=== PATIENT | female | born 1975 | race Caucasian/White ===

== ENCOUNTER 2018-02-03 14:05 | Inpatient (IN) | payer BC ==
[2018-02-03] MEDS ORDERED: KETOROLAC TROMETHAMINE INJ/PF 30 MG/1 ML SDV IV ONE (15:22)
--- NOTE | 2018-02-03 15:27 | ER Document Report ---
ED Medical Screen (RME) - General Chief Complaint: Breathing Difficulty Stated Complaint: DIFFICULTY BREATHING/PAIN BETWEEN SHOULDERS Time Seen by Provider: 02/03/18 15:07 Mode of Arrival: Ambulatory Information source: Patient Notes: Patient is a 42-year-old female who presents with multiple complaints today. Patient reports this morning she woke up with difficulty breathing and felt very lightheaded with any movement. She reports the difficulty breathing is worse with ambulation. Patient also reports sharp pain in between her shoulder blades. She states the pain feels better with pressure. She states that she did try taking an albuterol inhaler with no relief. She states she has been constantly tired lately and has had a history of severe anemia. Patient reports past medical history of DVT, pneumonia, asthma, sleep apnea and gastric bypass. Patient denies any use of oral contraceptives, hormone replacement, reports she drives 3 hours round trip each day to work, denies any recent surgery and denies smoking. Exam: Lung sounds are clear to auscultation bilaterally Heart sounds S1-S2 present with no ectopy noted Patient alert, oriented and speaking in full sentences I have greeted and performed a rapid initial assessment of this patient. A comprehensive ED assessment and evaluation of the patient, analysis of test results and completion of the medical decision making process will be conducted by additional ED providers. Dictation of this chart was performed using voice recognition software; therefore, there may be some unintended grammatical errors. TRAVEL OUTSIDE OF THE [place] IN LAST 30 DAYS: No - Related Data Allergies/Adverse Reactions: No Known Allergies Allergy (Unverified 02/03/18 14:06) Past Medical History - Social History Chew tobacco use (# tins/day): No Pulmonary Medical History: Reports: Hx Asthma Renal/ Medical History: Denies: Hx Peritoneal Dialysis Past Surgical History: Reports: Hx Bowel Surgery - gastirc bypass Physical Exam - Vital signs Vitals: Temp Pulse Resp BP Pulse Ox 100.0 F 98 33 H 128/61 H 98 02/03/18 14:21 02/03/18 14:21 02/03/18 14:21 02/03/18 14:21 02/03/18 14:21 Course - Vital Signs Vital signs: Temp Pulse Resp BP Pulse Ox 100.0 F 98 33 H 128/61 H 98 02/03/18 14:21 02/03/18 14:21 02/03/18 14:21 02/03/18 14:21 02/03/18 14:21 Doctor's Discharge - Discharge Referrals: TREY CARRILLO MD [Primary Care Provider] - Follow up as needed
--- NOTE | 2018-02-03 15:46 | RADIOLOGY REPORT (SQ) ---
EXAM DESCRIPTION: CHEST 2 VIEWS COMPLETED DATE/TIME: 02/03/2018 3:34 pm REASON FOR STUDY: sob with exertion COMPARISON: None. EXAM PARAMETERS: NUMBER OF VIEWS: two views TECHNIQUE: Digital Frontal and Lateral radiographic views of the chest acquired. RADIATION DOSE: NA LIMITATIONS: none FINDINGS: LUNGS AND PLEURA: Bilateral lower lobe patchy airspace disease, may be on the basis of in filtrates versus edema. Blunting of the costophrenic angles suggest small bilateral pleural effusion s. No pneumothorax. MEDIASTINUM AND HILAR STRUCTURES: No masses or contour abnormalities. HEART AND VASCULAR STRUCTURES: Borderline cardiomegaly. Slight prominence of the pulmonary vasculat ure or, may represent pulmonary congestion. BONES: No acute findings. HARDWARE: None in the chest. OTHER: No other significant finding. IMPRESSION: 1. Bilateral patchy lower lobe airspace disease, may be on the basis of infiltrates esme chao edema. Small bilateral pleural effusions. 2. Borderline cardiomegaly and slight to mild pulmonary vascular congestion. TECHNICAL DOCUMENTATION: JOB ID: [id number] [employer]- All Rights Reserved Reading location - IP/workstation name: [email or web address]
[2018-02-03 16:16] LABS: HEMATOCRIT 43.4 % (36.0-47.0); HEMOGLOBIN 14.4 g/dL (12.0-15.5); MEAN CORPUSCULAR HEMOGLOBIN 28.6 pg (27.0-33.4); MEAN CORPUSCULAR HGB CONC 33.1 g/dL (32.0-36.0); MEAN CORPUSCULAR VOLUME 86 fl (80-97); PLATELET COUNT 441 10^3/uL (150-450); RED BLOOD COUNT 5.03 10^6/uL (3.72-5.28); RED CELL DISTRIBUTION WIDTH 14.4 % (11.5-14.0)
[2018-02-03 16:29] LABS: ABSOLUTE LYMPHOCYTES# (MANUAL) 2.4 10^3/uL (0.5-4.7); ABSOLUTE NEUTROPHILS# (MANUAL) 30.2 10^3/uL (1.7-8.2); BASOPHILS % (MANUAL) 0 % (0-2); EOSINOPHILS % (MANUAL) 0 % (0-6); LYMPHOCYTES % (MANUAL) 7 % (13-45); MONOCYTES % (MANUAL) 3 % (3-13); SEGMENTED NEUTROPHILS % (MAN) 90 % (42-78); TOTAL CELLS COUNTED 100
[2018-02-03 16:30] LABS: PLATELET COMMENT ADEQUATE; TOXIC GRANULATION 1+; TOXIC VACUOLATION PRESENT
[2018-02-03 16:54] LABS: ALANINE AMINOTRANSFERASE 23 U/L (9-52); ALBUMIN 3.2 g/dL (3.5-5.0); ALKALINE PHOSPHATASE 90 U/L (38-126); ANION GAP 7 (5-19); ASPARTATE AMINO TRANSFERASE 21 U/L (14-36); BILIRUBIN,DIRECT 0.4 mg/dL (0.0-0.4); BILIRUBIN,TOTAL 0.7 mg/dL (0.2-1.3); BLOOD UREA NITROGEN 10 mg/dL (7-20); CALCIUM 8.6 mg/dL (8.4-10.2); CARBON DIOXIDE 22 mmol/L (22-30); CHLORIDE 110 mmol/L (98-107); GLUCOSE 128 mg/dL (75-110); POTASSIUM 4.3 mmol/L (3.6-5.0); SODIUM 138.6 mmol/L (137-145); TOTAL PROTEIN 5.9 g/dL (6.3-8.2)
--- NOTE | 2018-02-03 17:09 | ER Document Report ---
ED General - General Chief Complaint: Breathing Difficulty Stated Complaint: DIFFICULTY BREATHING/PAIN BETWEEN SHOULDERS Time Seen by Provider: 02/03/18 15:07 Mode of Arrival: Ambulatory TRAVEL OUTSIDE OF THE [place] IN LAST 30 DAYS: No - HPI Notes: Patient is a 42-year-old female with a history of asthma, previous pneumonia, venous issues to the lower extremities who presents to the ED complaining of pain between her shoulder blades, dyspnea on exertion, dry nonproductive cough that began over the last day. Patient does report feeling hot and cold at times as well. Patient states that she has been eating and drinking without any difficulties. She is urinating normally and having normal bowel movements. Denies any drug allergies or smoking history. Denies any prolonged immobilization, distance travel aside from 3-hour travel time for work round- trip, recent surgery/trauma, personal cancer history, hormone use, smoking, or previous PE. Denies any headache, neck pain, URI, sore throat, chest pain, palpitations, syncope, wheeze, abdominal pain, nausea/vomiting/diarrhea, urinary retention, dysuria, hematuria, loss of control of bowel or bladder, numbness/tingling, saddle anesthesia, muscle paralysis/weakness, or rash. - Related Data Allergies/Adverse Reactions: No Known Allergies Allergy (Unverified 02/03/18 14:06) Past Medical History - General Information source: Patient - Social History Smoking Status: Never Smoker Chew tobacco use (# tins/day): No Family History: Reviewed & Not Pertinent Patient has suicidal ideation: No Patient has homicidal ideation: No Pulmonary Medical History: Reports: Hx Asthma Renal/ Medical History: Denies: Hx Peritoneal Dialysis Past Surgical History: Reports: Hx Bowel Surgery - gastirc bypass Review of Systems - Review of Systems -: Yes All other systems reviewed and negative Physical Exam - Vital signs Vitals: Temp Pulse Resp BP Pulse Ox 100.0 F 98 33 H 128/61 H 98 02/03/18 14:21 02/03/18 14:21 02/03/18 14:21 02/03/18 14:21 02/03/18 14:21 - Notes Notes: PHYSICAL EXAMINATION: GENERAL: Well-appearing, well-nourished and in no acute distress. A&Ox4. Answers questions appropriately. HEAD: Atraumatic, normocephalic. EYES: Pupils equal round and reactive to light, extraocular movements intact, sclera anicteric, conjunctiva are normal. ENT: Nares patent and without discharge. oropharynx clear without exudates. No tonsilar hypertrophy or erythema. Moist mucous membranes. NECK: Normal range of motion, supple without lymphadenopathy LUNGS: bibasilar crackles noted. No wheezing or retractions. HEART: Regular rate and rhythm without murmurs, rubs, gallops. ABDOMEN: Soft, nontender, nondistended abdomen. No guarding, no rebound. No masses appreciated. Normal bowel sounds present. No CVA tenderness bilaterally. Musculoskeletal: FROM to passive/active. Strength 5+/5. Robert neg. No asymmetry to LE's. Extremities: Trace pitting edema b/l LE's. Peripheral pulses 2+. Capillary refill less than 3 seconds. NEUROLOGICAL: Normal speech, normal gait. PSYCH: Normal mood, normal affect. SKIN: Warm, Dry, normal turgor, no rashes or lesions noted. Course - Re-evaluation Re-evalutation: 02/03/18 17:40 I have consulted this case with Dr. Quinones. Pt meets SIRS criteria for Sepsis. We suspect b/l pneumonia based on a low grade temp, cough, elevated wbc, and CXR. Pt does not have any tachycardia or hypoxia. Pt does have mild tachypnea in the 20's, but is w/o distress. We will obtain further labs for sepsis, start fluids, and give IV antibiotics. Influenza test pending. 02/03/18 19:08 Lactic, BNP, Trop, and influenza unremarkable. Pt was ambulated with monitor and desaturated to 86% on RA, became tachypneic, SOB, and tachycardic. Wheel chair was brought and pt wheeled back to her room. Her Oxygen came back up to >94% after stopping for 10 seconds and pt started feeling better again. We will call for admission to the hospital for bilateral pneumonia and UTI. 02/03/18 19:19 Dr. Joshua accepted pt for admit to tele obs. - Vital Signs Vital signs: Temp Pulse Resp BP Pulse Ox 100.0 F 98 35 H 129/74 H 98 02/03/18 14:21 02/03/18 14:21 02/03/18 18:01 02/03/18 18:01 02/03/18 18:01 - Laboratory Result Diagrams: 02/03/18 15:54 02/03/18 16:30 Laboratory results interpreted by me: 02/03/18 02/03/18 02/03/18 15:54 15:54 16:30 WBC 33.6 H* RDW 14.4 H Seg Neuts % (Manual) 90 H Lymphocytes % (Manual) 7 L Abs Neuts (Manual) 30.2 H Chloride 110 H Glucose 128 H NT-Pro-B Natriuret Pep 370 H Total Protein 5.9 L Albumin 3.2 L Urine Blood Urine Nitrite Urine Urobilinogen Ur Leukocyte Esterase 02/03/18 18:28 WBC RDW Seg Neuts % (Manual) Lymphocytes % (Manual) Abs Neuts (Manual) Chloride Glucose NT-Pro-B Natriuret Pep Total Protein Albumin Urine Blood SMALL H Urine Nitrite POSITIVE H Urine Urobilinogen 4.0 H Ur Leukocyte Esterase TRACE H Discharge - Discharge Clinical Impression: SIRS (systemic inflammatory response syndrome), Acute UTI (urinary tract infection) Pneumonia of both lower lobes Qualifiers: Pneumonia type: due to unspecified organism Qualified Code(s): J18.1 - Lobar pneumonia, unspecified organism Condition: Stable Disposition: ADMITTED OBSERVATION Admitting Provider: Hospitalist - Dr. Joshua Unit Admitted: Telemetry Referrals: TREY CARRILLO MD [NO LOCAL MD] - Follow up as needed
[2018-02-03] MEDS ORDERED: NORMAL SALINE 1000 ML 1,000 ML IV ONE (17:22)
[2018-02-03] MEDS ORDERED: AZITHROMYCIN INJ 500 MG VIAL IV ONE (17:24)
[2018-02-03 17:57] LABS: VENOUS BLOOD HCO3 21.7 mmol/L (20-32); VENOUS BLOOD PCO2 37.6 mmHg (35-63); VENOUS BLOOD PH 7.38 (7.30-7.42)
[2018-02-03] MEDS ORDERED: CEFTRIAXONE 1 GM/D5W RTU 1 GM/50 ML RTUPB IV ONE (18:00)
[2018-02-03 18:42] LABS: APPEARANCE,URINE CLOUDY; BILIRUBIN,URINE NEGATIVE (NEGATIVE); COLOR,URINE AMBER; GLUCOSE, URINE NEGATIVE (NEGATIVE); KETONES,URINE NEGATIVE (NEGATIVE); LEUKOCYTE ESTERASE,URINE TRACE (NEGATIVE); NITRITE,URINE POSITIVE (NEGATIVE); PROTEIN,URINE NEGATIVE (NEGATIVE); URINE SPECIFIC GRAVITY 1.018
[2018-02-03 18:59] LABS: A TYPE INFLUENZA AG NEGATIVE (NEGATIVE); B INFLUENZA AG NEGATIVE (NEGATIVE)
[2018-02-03] MEDS ORDERED: HYDROCODONE BIT/HOMATROPINE SYRUP 5 ML UDCUP PO PRN (19:23)
[2018-02-03] MEDS ORDERED: CHLORPHENIRAMINE MALEATE 4 MG TABLET PO ONE (19:23)
[2018-02-03] MEDS ORDERED: IPRATROPIUM/ALBUTEROL 0.5-2.5 MG/3 ML AMPUL NEB PRN (19:24)
[2018-02-03] MEDS ORDERED: ACETAMINOPHEN 325 MG TABLET PO PRN (19:24)
[2018-02-03] MEDS: PREDNISONE 20 MG TABLET PO SCH (19:48)
[2018-02-03] MEDS: IPRATROPIUM/ALBUTEROL 0.5-2.5 MG/3 ML AMPUL NEB SCH (21:39)
[2018-02-03] MEDS: HEPARIN SOD (PORCINE) 5,000 UNIT/ML 1 ML SYRINGE SUBCUT SCH (22:25)
[2018-02-03] MEDS: FLUTICASONE NASAL SPRAY 50 MCG/SPRY 120 SPRAY/16 GM NASL SCH (22:26)
--- NOTE | 2018-02-03 23:22 | EKG REPORT ---
SEVERITY:- NORMAL ECG - SINUS RHYTHM : Confirmed by: Theresa Merritt 03-Feb-2018 23:21:33
[2018-02-04 00:37] LABS: CREATINE KINASE MB < 0.22 ng/mL (<4.55); TROPONIN I < 0.012 ng/mL
[2018-02-04] MEDS: IPRATROPIUM/ALBUTEROL 0.5-2.5 MG/3 ML AMPUL NEB SCH ×4 (02:34→19:29)
[2018-02-04] MEDS: HEPARIN SOD (PORCINE) 5,000 UNIT/ML 1 ML SYRINGE SUBCUT SCH ×3 (05:38→22:23)
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
[2018-02-04 06:56] LABS: HEMATOCRIT 36.8 % (36.0-47.0); MEAN CORPUSCULAR HEMOGLOBIN 28.6 pg (27.0-33.4); MEAN CORPUSCULAR HGB CONC 33.3 g/dL (32.0-36.0); MEAN CORPUSCULAR VOLUME 86 fl (80-97); PLATELET COUNT 407 10^3/uL (150-450); RED BLOOD COUNT 4.29 10^6/uL (3.72-5.28); RED CELL DISTRIBUTION WIDTH 14.1 % (11.5-14.0)
[2018-02-04 07:12] LABS: ANION GAP 5 (5-19); BLOOD UREA NITROGEN 11 mg/dL (7-20); CALCIUM 8.5 mg/dL (8.4-10.2); CARBON DIOXIDE 22 mmol/L (22-30); CHLORIDE 114 mmol/L (98-107); GLUCOSE 126 mg/dL (75-110); SODIUM 141.2 mmol/L (137-145)
[2018-02-04 07:14] LABS: CREATINE KINASE < 20 U/L (30-135)
[2018-02-04 07:24] LABS: CREATINE KINASE MB 0.29 ng/mL (<4.55)
[2018-02-04 07:27] LABS: TROPONIN I < 0.012 ng/mL
[2018-02-04 07:36] LABS: WHITE BLOOD COUNT 17.3 10^3/uL (4.0-10.5)
[2018-02-04 07:37] LABS: HEMOGLOBIN 12.3 g/dL (12.0-15.5)
[2018-02-04 07:48] LABS: ABSOLUTE LYMPHOCYTES# (MANUAL) 0.5 10^3/uL (0.5-4.7); ABSOLUTE MONOCYTES # (MANUAL) 0.2 10^3/uL (0.1-1.4); ABSOLUTE NEUTROPHILS# (MANUAL) 16.6 10^3/uL (1.7-8.2); ANISOCYTOSIS SLIGHT; BASOPHILS % (MANUAL) 0 % (0-2); EOSINOPHILS % (MANUAL) 0 % (0-6); LYMPHOCYTES % (MANUAL) 3 % (13-45); MONOCYTES % (MANUAL) 1 % (3-13); SEGMENTED NEUTROPHILS % (MAN) 96 % (42-78); TOTAL CELLS COUNTED 100
[2018-02-04 07:49] LABS: PLATELET COMMENT ADEQUATE; POLYCHROMASIA SLIGHT; TOXIC GRANULATION 1+
[2018-02-04] MEDS: FLUTICASONE NASAL SPRAY 50 MCG/SPRY 120 SPRAY/16 GM NASL SCH ×2 (09:58→22:24)
[2018-02-04] MEDS: PREDNISONE 20 MG TABLET PO SCH ×2 (09:58→17:37)
[2018-02-04] MEDS ORDERED: CEFTRIAXONE 1 GM/D5W RTU 50 ML IV SCH (10:00)
[2018-02-04 12:38] LABS: TROPONIN I < 0.012 ng/mL
[2018-02-04] MEDS: HYDROMORPHONE HCL 2 MG TABLET PO PRN ×2 (17:42→22:21)
[2018-02-04] MEDS ORDERED: AZITHROMYCIN 500 MG in DEXTROSE 5%-WATER 250 ML IV SCH (18:00)
[2018-02-04] MEDS ORDERED: CEFTRIAXONE SODIUM 1,000 MG in DEXTROSE 5%-WATER 50 ML IV SCH (18:00)
--- NOTE | 2018-02-04 19:03 | PDOC PROGRESS REPORT ---
Subjective Progress Note for:: 02/04/18 Subjective:: Ms Hinojosa reports pmhx of psoriatic arthritis, BL DVT. She is here with acute SOB with unknown origin. She was dx w/COPD. She has no hx of smoking. She is accompanied by her at the time of my evaluation. It's hard to follow her medical history, and she is agreeable for us to request records tomm. She reports breathing has improved since admission, but is not at baseline. She reports subjective intermittent F/C. She reports history of DVT w/out anticoagul ation tx. She does admit to poly-uria and dysuria over the past 1-2 weeks. She denies other symptoms related to PE, UTI, [place]. She denies orthopnea and PND, but does admit to periodic BLLE swelling that started off in LLE. Reason For Visit: COPD EXACERBATION PNEUMONIA Physical Exam Vital Signs: Temp Pulse Resp BP Pulse Ox 99.1 F 97 16 126/68 H 100 02/04/18 15:55 02/04/18 15:55 02/04/18 15:55 02/04/18 15:55 02/04/18 16:26 Pulse Oximeter Continuous Start: 02/03/18 19:24 Freq: RTQ4 Status: Active Protocol: Document 02/04/18 16:26 HCR (Rec: 02/04/18 16:26 HCR [id number]) Pulse Oximetry Assessment Oxygen Saturation (92-100) 100 Oxygen Delivery Method Room Air Fraction of Inspired Oxygen (FIO2) 21 Equipment Usage Equipment in Use Continuous SpO2 Machine # 1 Intake & Output 02/03/18 02/04/18 02/05/18 06:59 06:59 06:59 Intake Total 1287 118 Balance 1287 118 Weight 128.7 kg General appearance: PRESENT: no acute distress, morbidly obese, well-developed, well-nourished Head exam: PRESENT: atraumatic Ear exam: PRESENT: normal external ear exam Mouth exam: PRESENT: moist, neck supple, tongue midline Neck exam: PRESENT: full ROM Respiratory exam: PRESENT: other - seems mostly clear. possible crackles very late. no wheeze. Cardiovascular exam: PRESENT: RRR, +S1, +S2 Pulses: PRESENT: normal carotid pulses, normal radial pulses GI/Abdominal exam: PRESENT: soft, other - non tender. non distended. + BS Rectal exam: PRESENT: deferred Extremities exam: PRESENT: +2 edema - BLLE. no erythema. mild TTP Neurological exam: PRESENT: alert, awake, oriented to person, oriented to place, oriented to time, oriented to situation, CN II-XII grossly intact. ABSENT: motor sensory deficit Psychiatric exam: PRESENT: anxious Results Laboratory Results: 02/04/18 06:06 02/04/18 06:06 02/04/18 02/04/18 02/04/18 06:06 06:06 07:10 WBC 17.3 H RBC 4.29 Hgb 12.3 D Hct 36.8 MCV 86 MCH 28.6 MCHC 33.3 RDW 14.1 H Plt Count 407 Seg Neutrophils % Not Reportable Lymphocytes % Not Reportable Monocytes % Not Reportable Eosinophils % Not Reportable Basophils % Not Reportable Absolute Neutrophils Not Reportable Absolute Lymphocytes Not Reportable Absolute Monocytes Not Reportable Absolute Eosinophils Not Reportable Absolute Basophils Not Reportable Sodium 141.2 Potassium 4.0 Chloride 114 H Carbon Dioxide 22 Anion Gap 5 BUN 11 Creatinine 0.63 Est GFR ( Amer) > 60 Est GFR (Non-Af Amer) > 60 Glucose 126 H Lactic Acid 1.1 Calcium 8.5 02/03/18 02/03/18 02/03/18 15:54 17:47 23:48 Creatine Kinase < 20 L CK-MB (CK-2) Troponin I < 0.012 NT-Pro-B Natriuret Pep 370 H 02/03/18 02/04/18 02/04/18 23:48 06:06 06:06 Creatine Kinase < 20 L CK-MB (CK-2) < 0.22 0.29 Troponin I < 0.012 < 0.012 NT-Pro-B Natriuret Pep 02/04/18 02/04/18 11:47 11:47 Creatine Kinase < 20 L CK-MB (CK-2) 0.30 Troponin I < 0.012 NT-Pro-B Natriuret Pep Impressions: Chest X-Ray 02/03/18 15:22 IMPRESSION: 1. Bilateral patchy lower lobe airspace disease, may be on the basis of infiltrates versus edema. Small bilateral pleural effusions. 2. Borderline cardiomegaly and slight to mild pulmonary vascular congestion. Assessment & Plan - Diagnosis (1) SOB (shortness of breath) Is this a current diagnosis for this admission?: Yes (2) Acute UTI (urinary tract infection) Is this a current diagnosis for this admission?: Yes (3) Morbid obesity Is this a current diagnosis for this admission?: Yes (4) SIRS (systemic inflammatory response syndrome) Is this a current diagnosis for this admission?: Yes - Time Time Spent with patient: 35 or more minutes Medications reviewed and adjusted accordingly: Yes Within: within 48 hours - Inpatient Certification Based on my medical assessment, after consideration of the patient's comorbidities, presenting symptoms, or acuity I expect that the services needed warrant INPATIENT care.: Yes I certify that my determination is in accordance with my understanding of Medicare's requirements for reasonable and necessary INPATIENT services [42 CFR 412.3e].: Yes - Plan Summary Plan Summary: 1. SOB - origin not identified. consideration for PE given. -ceftriaxone + azithro covering for BL PNA -consider ECHO for possible CHF -currently on RA -continue supplemental care, breathing tx, etc... 2. UTI -covered with ceftriaxone + azithro -cultures pending -labs in am 3. Possible BL DVT (dx during the summer 2017). denies being tx /anti- coagulation -BL US tomm -obtain record from PCP and vein clinic
[2018-02-04] MEDS ORDERED: TOPIRAMATE 100 MG TABLET ONE (22:00)
[2018-02-04] MEDS: AMITRIPTYLINE HCL 50 MG TABLET PO SCH (22:21)
[2018-02-04] MEDS: TOPIRAMATE 100 MG TABLET PO SCH (22:21)
[2018-02-05] MEDS: IPRATROPIUM/ALBUTEROL 0.5-2.5 MG/3 ML AMPUL NEB SCH ×4 (01:24→21:55)
[2018-02-05] MEDS: HEPARIN SOD (PORCINE) 5,000 UNIT/ML 1 ML SYRINGE SUBCUT SCH ×2 (05:09→14:27)
[2018-02-05 06:00] LABS: ABSOLUTE LYMPHOCYTES (AUTO) 1.6 10^3/uL (0.5-4.7); ABSOLUTE MONOCYTES (AUTO) 0.8 10^3/uL (0.1-1.4); ABSOLUTE NEUT (AUTO) 12.7 10^3/uL (1.7-8.2); BASOPHILS % (AUTO) 0.3 % (0-2); EOSINOPHILS % (AUTO) 0.2 % (0-6); HEMATOCRIT 36.9 % (36.0-47.0); HEMOGLOBIN 12.2 g/dL (12.0-15.5); LYMPHOCYTES % (AUTO) 10.5 % (13-45); MEAN CORPUSCULAR HEMOGLOBIN 28.7 pg (27.0-33.4); MEAN CORPUSCULAR HGB CONC 33.1 g/dL (32.0-36.0); MEAN CORPUSCULAR VOLUME 87 fl (80-97); MONOCYTES % (AUTO) 5.3 % (3-13); PLATELET COUNT 382 10^3/uL (150-450); RED BLOOD COUNT 4.25 10^6/uL (3.72-5.28); RED CELL DISTRIBUTION WIDTH 14.7 % (11.5-14.0); SEGMENTED NEUTROPHILS % (AUTO) 83.7 % (42-78); TOTAL CELLS COUNTED % (AUTO) 100 %; WHITE BLOOD COUNT 15.2 10^3/uL (4.0-10.5)
[2018-02-05 06:28] LABS: ANION GAP 8 (5-19); BLOOD UREA NITROGEN 10 mg/dL (7-20); CALCIUM 8.9 mg/dL (8.4-10.2); CARBON DIOXIDE 20 mmol/L (22-30); CHLORIDE 115 mmol/L (98-107); GLUCOSE 105 mg/dL (75-110); POTASSIUM 4.5 mmol/L (3.6-5.0); SODIUM 142.5 mmol/L (137-145)
[2018-02-05] MEDS: HYDROMORPHONE HCL 2 MG TABLET PO PRN ×2 (08:04→17:10)
[2018-02-05] MEDS: PREDNISONE 20 MG TABLET PO SCH ×2 (09:26→17:10)
[2018-02-05] MEDS: FLUTICASONE NASAL SPRAY 50 MCG/SPRY 120 SPRAY/16 GM NASL SCH ×2 (09:26→22:01)
[2018-02-05] MEDS ORDERED: FUROSEMIDE 40 MG TABLET PO ONE (11:30)
--- NOTE | 2018-02-05 11:45 | RADIOLOGY REPORT (SQ) ---
EXAM DESCRIPTION: VENOUS BILATERAL LOWER COMPLETED DATE/TIME: 02/05/2018 11:23 am REASON FOR STUDY: possible DVT COMPARISON: None. TECHNIQUE: Dynamic and static duncan scale and color images acquired of both lower extremity venous sy stems. Selected spectral images acquired with additional compression and augmentation maneuvers. Imag es stored on PACS. LIMITATIONS: None. FINDINGS: RIGHT LEG COMMON FEMORAL AND FEMORAL: Normal phasicity, compression and augmentation. No visualized echogenic m aterial on duncan scale. No defects on color images. POPLITEAL: Normal compression and augmentation. No visualized echogenic material on duncan scale. No de fects on color images. POSTERIOR TIBIAL AND PERONEAL VEINS: Normal compression and augmentation. No visualized echogenic mat erial on duncan scale. No defects on color image. GSV AND SSV: Normal compression. No visualized echogenic material on duncan scale. No defects on color images. ANY DEEP VENOUS INSUFFICIENCY: No reflux on Valsalva. ANY EVIDENCE OF POPLITEAL CYST: No. OTHER: No other significant finding. LEFT LEG COMMON FEMORAL AND FEMORAL: Normal phasicity, compression and augmentation. No visualized echogenic m aterial on duncan scale. No defects on color images. POPLITEAL: Normal compression and augmentation. No visualized echogenic material on duncan scale. No de fects on color images. Posterior tibial and peroneal veins: Very difficult to visualize, clot in the left calf vessels could not be excluded. GSV: Normal color flow and compression, greater saphenous vein in the thigh. However, there is acut e hypoechoic clot throughout the left greater saphenous vein in the lower leg. SSV: Normal compression. No visualized echogenic material on duncan scale. No defects on color images. ANY DEEP VENOUS INSUFFICIENCY: No reflux on Valsalva. ANY EVIDENCE POPLITEAL CYST: No. OTHER: No other significant finding. IMPRESSION: NO EVIDENCE DVT OR SVT IN THE RIGHT LEG. NO DVT OR SVT IN THE LEFT THIGH ACUTE HYPOECHOIC CLOT IN THE LEFT GREATER SAPHENOUS VEIN IN THE CALF VERY POOR VISUALIZATION OF THE LEFT POSTERIOR TIBIAL AND PERONEAL VEINS, CLOT IN THESE VESSELS COULD NOT BE EXCLUDED. TECHNICAL DOCUMENTATION: JOB ID: [id number] [employer]- All Rights Reserved Reading location - IP/workstation name: [email or web address]
[2018-02-05] MEDS: LEVOFLOXACIN 250 MG TABLET PO SCH (12:20)
--- NOTE | 2018-02-05 14:56 | PDOC PROGRESS REPORT ---
Subjective Progress Note for:: 02/05/18 Subjective:: Mrs Hinojosa reports pmhx of psoriatic arthritis, BL DVT. She is here with acute SOB with unknown origin. She was dx w/COPD, but denies hx of smoking. Mrs Hinojosa continues to report unchanged SOB. She does however remain on RA. there is possible bilateral crackles, and she is agreeable to a lasix trial. Her venous BLLE ultrasound showed a DVT in her LLE, and she is agreeable to anti- coagulation. She is aware or risks and benefits of the medication options. She continues to deny CP/F/C/acute changes. Her pain when urinating has shown some improvements. She continues to deny orthopnea and PND, as well ILENE symptoms. Reason For Visit: SOB, DVT Physical Exam Vital Signs: Temp Pulse Resp BP Pulse Ox 98.7 F 102 H 16 115/64 96 02/05/18 11:14 02/05/18 14:00 02/05/18 13:11 02/05/18 11:14 02/05/18 13:11 Pulse Oximeter Continuous Start: 02/03/18 19:24 Freq: RTQ4 Status: Active Protocol: Document 02/05/18 12:00 [facility] (Rec: 02/05/18 12:46 [facility] [id number]) Pulse Oximetry Assessment Oxygen Saturation (92-100) 98 Oxygen Delivery Method Room Air Fraction of Inspired Oxygen (FIO2) 21 Equipment Usage Equipment in Use Continuous SpO2 Machine # 1 Intake & Output 02/04/18 02/05/18 02/06/18 06:59 06:59 06:59 Intake Total 1287 738 906 Balance 1287 738 906 Weight 128.7 kg 134.8 kg General appearance: PRESENT: no acute distress, morbidly obese Head exam: PRESENT: atraumatic Eye exam: PRESENT: PERRLA Ear exam: PRESENT: normal external ear exam Mouth exam: PRESENT: moist, tongue midline Respiratory exam: PRESENT: crackles, unlabored Cardiovascular exam: PRESENT: RRR, +S1, +S2 Pulses: PRESENT: normal dorsalis pedis pul GI/Abdominal exam: PRESENT: soft - non tender, non distended, + BS Rectal exam: PRESENT: deferred Extremities exam: PRESENT: full ROM, pedal edema, tenderness, +1 edema - BLLE Neurological exam: PRESENT: alert, awake, oriented to person, oriented to place, oriented to time, oriented to situation, CN II-XII grossly intact. ABSENT: motor sensory deficit Psychiatric exam: PRESENT: normal mood Skin exam: PRESENT: intact, normal color, warm Results Laboratory Results: 02/05/18 05:35 02/05/18 05:35 02/05/18 02/05/18 05:35 05:35 WBC 15.2 H RBC 4.25 Hgb 12.2 Hct 36.9 MCV 87 MCH 28.7 MCHC 33.1 RDW 14.7 H Plt Count 382 Seg Neutrophils % 83.7 H Lymphocytes % 10.5 L Monocytes % 5.3 Eosinophils % 0.2 Basophils % 0.3 Absolute Neutrophils 12.7 H Absolute Lymphocytes 1.6 Absolute Monocytes 0.8 Absolute Eosinophils 0.0 Absolute Basophils 0.0 Sodium 142.5 Potassium 4.5 Chloride 115 H Carbon Dioxide 20 L Anion Gap 8 BUN 10 Creatinine 0.58 Est GFR ( Amer) > 60 Est GFR (Non-Af Amer) > 60 Glucose 105 Calcium 8.9 02/03/18 18:28 Clean Catch Midstream Urine Culture - Final Escherichia Coli 02/03/18 02/03/18 02/03/18 15:54 17:47 23:48 Creatine Kinase < 20 L CK-MB (CK-2) Troponin I < 0.012 NT-Pro-B Natriuret Pep 370 H 02/03/18 02/04/18 02/04/18 23:48 06:06 06:06 Creatine Kinase < 20 L CK-MB (CK-2) < 0.22 0.29 Troponin I < 0.012 < 0.012 NT-Pro-B Natriuret Pep 02/04/18 02/04/18 11:47 11:47 Creatine Kinase < 20 L CK-MB (CK-2) 0.30 Troponin I < 0.012 NT-Pro-B Natriuret Pep Impressions: Chest X-Ray 02/03/18 15:22 IMPRESSION: 1. Bilateral patchy lower lobe airspace disease, may be on the basis of infiltrates versus edema. Small bilateral pleural effusions. 2. Borderline cardiomegaly and slight to mild pulmonary vascular congestion. Venous Doppler Study 02/05/18 08:00 IMPRESSION: NO EVIDENCE DVT OR SVT IN THE RIGHT LEG. NO DVT OR SVT IN THE LEFT THIGH ACUTE HYPOECHOIC CLOT IN THE LEFT GREATER SAPHENOUS VEIN IN THE CALF VERY POOR VISUALIZATION OF THE LEFT POSTERIOR TIBIAL AND PERONEAL VEINS, CLOT IN THESE VESSELS COULD NOT BE EXCLUDED. Assessment & Plan - Diagnosis (1) SOB (shortness of breath) Is this a current diagnosis for this admission?: Yes (2) Acute UTI (urinary tract infection) Is this a current diagnosis for this admission?: Yes (3) Morbid obesity Is this a current diagnosis for this admission?: Yes (4) SIRS (systemic inflammatory response syndrome) Is this a current diagnosis for this admission?: Yes (5) DVT (deep venous thrombosis) Qualifiers: Laterality: left Is this a current diagnosis for this admission?: Yes - Time Time Spent with patient: 35 or more minutes Medications reviewed and adjusted accordingly: Yes Anticipated discharge: Home - Inpatient Certification Based on my medical assessment, after consideration of the patient's comorbidities, presenting symptoms, or acuity I expect that the services needed warrant INPATIENT care.: Yes I certify that my determination is in accordance with my understanding of Medicare's requirements for reasonable and necessary INPATIENT services [42 CFR 412.3e].: Yes - Plan Summary Plan Summary: 1. SOB -origin not definitively identified. speculation for PE higher given current DVT on US. -check CTA. Normal renal function. -d/c empiric PNA abx (ceftriaxone + azithro). suspicion for PNA is lower, and levaquin for UTI can be increased to adequate PNA coverage if needed -ECHO pending -trial 40mg iv lasix ordered -currently on RA -continue supplemental care, breathing tx, etc... 2. UTI -d/c exmpiric abx used for PNA -start levaquin per c/s report. 250mg po daily. started on 02/05 -labs in am 3. Possible BL DVT (dx during the summer 2017). denies being tx /anti- coagulation -confirmed on US. -start 10mg po bid eliquis and then 5mg po bid x3-6 months minimum 4. Bacteremia? -possible contamination. monitoring culture results. -labs in am Disposition: suspect patient can be d/c in the 48-72 hours.
[2018-02-05] MEDS ORDERED: HYDROMORPHONE HCL 2 MG TABLET PO ONE (17:00)
[2018-02-05] MEDS: APIXABAN 5 MG TABLET PO SCH (17:11)
[2018-02-05] MEDS: TOPIRAMATE 100 MG TABLET PO SCH (22:00)
[2018-02-05] MEDS: AMITRIPTYLINE HCL 50 MG TABLET PO SCH (22:00)
[2018-02-06] MEDS: IPRATROPIUM/ALBUTEROL 0.5-2.5 MG/3 ML AMPUL NEB SCH ×4 (01:56→19:52)
[2018-02-06] MEDS: HYDROMORPHONE HCL 2 MG TABLET PO PRN ×3 (02:08→23:53)
[2018-02-06] MEDS: PREDNISONE 20 MG TABLET PO SCH ×2 (09:05→17:48)
[2018-02-06] MEDS: APIXABAN 5 MG TABLET PO SCH ×2 (09:05→17:48)
[2018-02-06] MEDS: FLUTICASONE NASAL SPRAY 50 MCG/SPRY 120 SPRAY/16 GM NASL SCH ×2 (09:05→22:45)
--- NOTE | 2018-02-06 09:05 | RADIOLOGY REPORT (SQ) ---
EXAM DESCRIPTION: CTA CHEST COMPLETED DATE/TIME: 02/06/2018 2:58 am REASON FOR STUDY: possible PE COMPARISON: None. TECHNIQUE: CT scan of the chest performed using helical scanning technique with dynamic intravenous contrast injection. Images reviewed with lung, soft tissue and bone windows. Reconstructed coronal and sagittal MPR images reviewed. Additional 3 dimensional post-processing performed to develop Maximal Intensity Projection images ([place] P). All images stored on PACS. All CT scanners at this facility use dose modulation, iterative reconstruction, and/or weight based d osing when appropriate to reduce radiation dose to as low as reasonably achievable (ALARA). [facility]: Dose Right [facility]: CareDose [facility]: Dose Right [facility]: Teradose 4D [facility]: [employer] CONTRAST TYPE AND DOSE: contrast/concentration: Isovue mg/ml; Total Contrast Delivered: 0.0 ml; Tot al Saline Delivered: 50.0 ml RENAL FUNCTION: GFR > 60. RADIATION DOSE: CT Rad equipment meets quality standard of care and radiation dose reduction techniq ues were employed. CTDIvol: 48.9 mGy. DLP: 1566 mGy-cm. . LIMITATIONS: None. FINDINGS: LUNGS AND PLEURA: Subsegmental airspace disease in both lower lobes. No effusions. AORTA AND GREAT VESSELS: No aneurysm. HEART: No pericardial effusion. PULMONARY ARTERIES: No emboli visualized in the main pulmonary arteries or the segmental branches. HILAR AND MEDIASTINAL STRUCTURES: No identified masses or abnormal nodes. HARDWARE: None in the chest. UPPER ABDOMEN: Prior gastric bypass. Limited exam. THYROID AND OTHER SOFT TISSUES: No masses. No adenopathy. BONES: Nothing acute. 3D MIPS: Confirm above findings. OTHER: No other significant finding. IMPRESSION: 1. No PE. 2. Bilateral pneumonia. COMMENT: Quality ID # [id number]: Final reports with documentation of one or more dose reduction techniques (e.g., Automated exposure control, adjustment of the mA and/or kV according to patient size, use of iterative reconstruction technique) TECHNICAL DOCUMENTATION: JOB ID: [id number] [employer]- All Rights Reserved Reading location - IP/workstation name: [email or web address]
[2018-02-06] MEDS ORDERED: FUROSEMIDE INJ/PF 40 MG/4 ML SDV IV ONE (12:14)
[2018-02-06] MEDS ORDERED: LEVOFLOXACIN 250 MG TABLET PO SCH (12:30)
[2018-02-06] MEDS: LEVOFLOXACIN 250 MG TABLET PO SCH (12:39)
--- NOTE | 2018-02-06 18:22 | PDOC PROGRESS REPORT ---
Subjective Progress Note for:: 02/06/18 Subjective:: Mrs Hinojosa reports pmhx of psoriatic arthritis, BL DVT. She is here with acute SOB with unknown origin. She was dx w/COPD, but denies hx of smoking. Mrs Hinojosa's improvement in her breathing today. She feels the antibiotics and the trial dose of Lasix were beneficial. CTA of the chest did not show a pulmonary embolus. It did however show a bilateral pneumonia. Patient does not report fever or chills. She is back on room air. Vital signs overall appears stable. We are waiting results of the echo to ensure a safe discharge. She is agreeable with this plan. No longer having dysuria or polyuria. She is to be tolerating the antibiotics well. No issues with anticoagulation. Reason For Visit: UTI,DVT,POSSIBLE PE, 1/2+ BLOOD CULTURES Physical Exam Vital Signs: Temp Pulse Resp BP Pulse Ox 98.8 F 84 18 131/74 H 97 02/06/18 15:54 02/06/18 15:54 02/06/18 15:54 02/06/18 15:54 02/06/18 15:54 Pulse Oximeter Continuous Start: 02/03/18 19:24 Freq: RTQ4 Status: Active Protocol: Document 02/06/18 14:32 [facility] (Rec: 02/06/18 14:44 [facility] [id number]) Pulse Oximetry Assessment Oxygen Saturation (92-100) 96 Oxygen Delivery Method Room Air Fraction of Inspired Oxygen (FIO2) 21 Equipment Usage Equipment in Use Continuous SpO2 Machine # N 1 Additional RT Notes Other delayed as pt was previously eating pizza, no distress noted Intake & Output 02/05/18 02/06/18 02/07/18 06:59 06:59 06:59 Intake Total 738 1266 827 Output Total 750 300 Balance 738 516 527 Weight 134.8 kg 132.7 kg General appearance: PRESENT: no acute distress, well-developed, well-nourished Head exam: PRESENT: atraumatic, normocephalic Eye exam: PRESENT: conjunctiva pink, EOMI, PERRLA. ABSENT: scleral icterus Ear exam: PRESENT: normal external ear exam Mouth exam: PRESENT: moist, tongue midline Respiratory exam: PRESENT: other - Minimal crackles at base. No appreciable rhonchi noted, however difficult to auscultate due to body habitus. Cardiovascular exam: PRESENT: RRR, +S1, +S2 GI/Abdominal exam: PRESENT: normal bowel sounds, soft. ABSENT: distended, guarding, mass, organolmegaly, rebound, tenderness Rectal exam: PRESENT: deferred Extremities exam: PRESENT: +1 edema - Bilateral lower extremities. Musculoskeletal exam: PRESENT: full ROM Results Laboratory Results: 02/05/18 05:35 02/05/18 05:35 02/03/18 17:47 Blood Blood Culture - Final Micrococcus Species 02/03/18 02/03/18 02/03/18 15:54 17:47 23:48 Creatine Kinase < 20 L CK-MB (CK-2) Troponin I < 0.012 NT-Pro-B Natriuret Pep 370 H 02/03/18 02/04/18 02/04/18 23:48 06:06 06:06 Creatine Kinase < 20 L CK-MB (CK-2) < 0.22 0.29 Troponin I < 0.012 < 0.012 NT-Pro-B Natriuret Pep 02/04/18 02/04/18 11:47 11:47 Creatine Kinase < 20 L CK-MB (CK-2) 0.30 Troponin I < 0.012 NT-Pro-B Natriuret Pep Impressions: Chest X-Ray 02/03/18 15:22 IMPRESSION: 1. Bilateral patchy lower lobe airspace disease, may be on the basis of infiltrates versus edema. Small bilateral pleural effusions. 2. Borderline cardiomegaly and slight to mild pulmonary vascular congestion. Venous Doppler Study 02/05/18 08:00 IMPRESSION: NO EVIDENCE DVT OR SVT IN THE RIGHT LEG. NO DVT OR SVT IN THE LEFT THIGH ACUTE HYPOECHOIC CLOT IN THE LEFT GREATER SAPHENOUS VEIN IN THE CALF VERY POOR VISUALIZATION OF THE LEFT POSTERIOR TIBIAL AND PERONEAL VEINS, CLOT IN THESE VESSELS COULD NOT BE EXCLUDED. Chest/Abdomen CTA 02/06/18 00:00 IMPRESSION: 1. No PE. 2. Bilateral pneumonia. Assessment & Plan - Diagnosis (1) SOB (shortness of breath) Is this a current diagnosis for this admission?: Yes (2) Acute UTI (urinary tract infection) Is this a current diagnosis for this admission?: Yes (3) Morbid obesity Is this a current diagnosis for this admission?: Yes Plan: BMI 50.2. (4) SIRS (systemic inflammatory response syndrome) Is this a current diagnosis for this admission?: Yes (5) DVT (deep venous thrombosis) Qualifiers: Laterality: left Is this a current diagnosis for this admission?: Yes (6) Pneumonia of both lower lobes Qualifiers: Pneumonia type: due to unspecified organism Qualified Code(s): J18.1 - Lobar pneumonia, unspecified organism Is this a current diagnosis for this admission?: Yes - Time Time Spent with patient: 35 or more minutes Medications reviewed and adjusted accordingly: Yes - Inpatient Certification Based on my medical assessment, after consideration of the patient's comorbidities, presenting symptoms, or acuity I expect that the services needed warrant INPATIENT care.: Yes I certify that my determination is in accordance with my understanding of Medicare's requirements for reasonable and necessary INPATIENT services [42 CFR 412.3e].: Yes - Plan Summary Plan Summary: 1. Bilateral lower lobe pneumonia/pulmonary edema. -Improvements with trial of Lasix. Repeat 40 of Lasix today. -Increase Levaquin to therapeutic dose for pneumonia. -ECHO pending -currently on RA -continue supplemental care, breathing tx, etc... 2. UTI -d/c empiric abx used for PNA -levaquin per c/s report. Using dose effective for pneumonia. -labs in am 3. Possible BL DVT (dx during the summer 2017). denies being tx /anti- coagulation -confirmed on US. -eliquis 10mg po bid x 7d then 5mg po bid x 3-6 months minimum 4. Bacteremia -Likely contamination Disposition: Plan to discharge Saturday.
[2018-02-06] MEDS: TOPIRAMATE 100 MG TABLET PO SCH (22:45)
[2018-02-06] MEDS: AMITRIPTYLINE HCL 50 MG TABLET PO SCH (22:45)
[2018-02-07] MEDS: IPRATROPIUM/ALBUTEROL 0.5-2.5 MG/3 ML AMPUL NEB SCH ×2 (01:57→08:01)
[2018-02-07 06:09] LABS: ABSOLUTE BASOPHILS # (AUTO) 0.1 10^3/uL (0.0-0.2); ABSOLUTE LYMPHOCYTES (AUTO) 1.8 10^3/uL (0.5-4.7); ABSOLUTE MONOCYTES (AUTO) 0.8 10^3/uL (0.1-1.4); BASOPHILS % (AUTO) 0.5 % (0-2); EOSINOPHILS % (AUTO) 0.1 % (0-6); HEMATOCRIT 38.2 % (36.0-47.0); HEMOGLOBIN 12.7 g/dL (12.0-15.5); LYMPHOCYTES % (AUTO) 14.5 % (13-45); MEAN CORPUSCULAR HEMOGLOBIN 28.4 pg (27.0-33.4); MEAN CORPUSCULAR HGB CONC 33.2 g/dL (32.0-36.0); MEAN CORPUSCULAR VOLUME 86 fl (80-97); MONOCYTES % (AUTO) 6.4 % (3-13); PLATELET COUNT 411 10^3/uL (150-450); RED BLOOD COUNT 4.45 10^6/uL (3.72-5.28); RED CELL DISTRIBUTION WIDTH 14.1 % (11.5-14.0); SEGMENTED NEUTROPHILS % (AUTO) 78.5 % (42-78); TOTAL CELLS COUNTED % (AUTO) 100 %; WHITE BLOOD COUNT 12.7 10^3/uL (4.0-10.5)
[2018-02-07 06:50] LABS: ANION GAP 10 (5-19); BLOOD UREA NITROGEN 15 mg/dL (7-20); CALCIUM 8.6 mg/dL (8.4-10.2); CARBON DIOXIDE 21 mmol/L (22-30); CHLORIDE 110 mmol/L (98-107); GLUCOSE 95 mg/dL (75-110); POTASSIUM 4.2 mmol/L (3.6-5.0); SODIUM 141.2 mmol/L (137-145)
[2018-02-07] MEDS: APIXABAN 5 MG TABLET PO SCH (09:21)
[2018-02-07] MEDS: PREDNISONE 20 MG TABLET PO SCH (09:21)
[2018-02-07] MEDS: FLUTICASONE NASAL SPRAY 50 MCG/SPRY 120 SPRAY/16 GM NASL SCH (09:21)
[2018-02-07 09:26] VITALS: BP 131/74
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
--- NOTE | 2018-02-11 20:33 | XCELERA REPORT ---
[address] [place] [address] Transthoracic Echocardiogram Report Name: HIRAL ADLER Age: 42 yrs Gender: Female : 1975 Patient Status: Inpatient Patient Location: [address] [place] [address] Study Date: 02/05/2018 02:24 PM Procedure: A two-dimensional transthoracic echocardiogram with color flow and Doppler was performed. Study Quality: Poor. UNABLE to interpet this echo except grossly LVEF is normal. Reason For Study: SOB, pulmonary congestion Ordering Physician: DEE NEFF Performed By: Kia Lucio Interpretation Summary UNABLE to interpet this echo except grossly LVEF is normal. UNABLE to interpet this echo except grossly LVEF is normal. MMode/2D Measurements & Calculations RVDd: 3.3 cm LVIDd: 4.7 cm FS: 36.9 % Ao root diam: 2.7 cm IVSd: 1.2 cm LVIDs: 2.9 cm EDV(Teich): 100.3 ml Ao root area: 5.8 cm2 LVPWd: 1.2 cm ESV(Teich): 33.3 ml EF(Teich): 66.7 % Doppler Measurements & Calculations MV E max adia: MV dec slope: Ao V2 max: LV V1 max P.9 cm/sec 174.2 cm/sec 8.4 mmHg MV A max adia: 563.2 cm/sec2 Ao max PG: LV V1 max: 108.6 cm/sec MV dec time: 0.18 sec12.1 mmHg 144.8 cm/sec MV E/A: 0.93 PA V2 max: 129.5 cm/sec PA max P.7 mmHg : DEE NEFF > Destiny Medina
[2018-02-12 13:00] LABS: WHITE BLOOD COUNT 33.6 10^3/uL (4.0-10.5)
[2018-02-13 13:34] LABS: PATH REVIEW PATHOLOGIST REVIEWED
== END 2018-02-07 10:18 | disposition home or self-care (01) | DRG 689 ==
LOC: ER 14:05 → EH 19:24 → 5 20:26 → OBSVTOIN 02-05 14:36 → INTOOBSV 02-05 14:36
PROVIDERS: ADMIT Internal Medicine; ATTEND Internal Medicine
PROC: 3E0F73Z Introduction of Anti-inflammatory into Respiratory Tract, Via Natural or Artificial Opening (ICD-10-PCS; principal; 2018-02-03)
DX: N39.0 Urinary tract infection, site not specified (principal); J18.1 Lobar pneumonia, unspecified organism; Z68.43 Body mass index [BMI] 50.0-59.9, adult; I82.402 Acute embolism and thrombosis of unspecified deep veins of left lower extremity; B96.20 Unspecified Escherichia coli [E. coli] as the cause of diseases classified elsewhere; E66.01 Morbid (severe) obesity due to excess calories; G47.33 Obstructive sleep apnea (adult) (pediatric); K21.9 Gastro-esophageal reflux disease without esophagitis; M19.90 Unspecified osteoarthritis, unspecified site; J45.909 Unspecified asthma, uncomplicated; D64.9 Anemia, unspecified; Z98.84 Bariatric surgery status; Z79.899 Other long term (current) drug therapy; Z88.6 Allergy status to analgesic agent; Z91.013 Allergy to seafood; Z82.49 Family history of ischemic heart disease and other diseases of the circulatory system
CPT/HCPCS: 36415; 71046; 71275; 80048; 80053; 81001; 82550; 82553; 82803; 83605; 83735; 83880; 84443; 84484; 85025; 87040; 87077; 87086; 87088; 87186; 87804; 93005; 93010; 93306; 93970; 94667; 94668; 94762; 94799; 96365; 96367; 96375; 99285; G0378; J0456; J0696; J1644; J1885; J1940; J3490; J7030; J7060; J7512; J7620

== ENCOUNTER 2018-10-30 09:17 | Inpatient (IN) | payer BC, OTHER ==
[2018-10-30 10:12] LABS: ALBUMIN 2.4 g/dL (3.5-5.0); ALKALINE PHOSPHATASE 82 U/L (38-126); ANION GAP 6 (5-19); ASPARTATE AMINO TRANSFERASE 20 U/L (14-36); BILIRUBIN,DIRECT 0.2 mg/dL (0.0-0.4); BILIRUBIN,TOTAL 0.6 mg/dL (0.2-1.3); BLOOD UREA NITROGEN 8 mg/dL (7-20); CARBON DIOXIDE 18 mmol/L (22-30); CHLORIDE 116 mmol/L (98-107); GLUCOSE 106 mg/dL (75-110)
[2018-10-30 10:25] LABS: CALCIUM 6.8 mg/dL (8.4-10.2)
[2018-10-30 10:26] LABS: POTASSIUM 2.6 mmol/L (3.6-5.0)
--- NOTE | 2018-10-30 10:40 | ER Document Report ---
ED General - General Chief Complaint: Chest Pain Stated Complaint: SHORTNESS OF BREATH Time Seen by Provider: 10/30/18 10:35 TRAVEL OUTSIDE OF THE [place] IN LAST 30 DAYS: No - HPI Patient complains to provider of: chets pain SOB Notes: Morbidly obese 43-year-old female presents in severe acute distress with increasing work of breathing shortness of breath and sharp chest pain. Pain is 8/10 without radiation nothing makes it better or worse. Patient has a history of pneumonia in the past she says this is very reminiscent of her time she had pneumonia. Patient does not normally wear oxygen at home but does sleep with a CPAP at night due to her sleep apnea. Denies fever but has been coughing more than normal. Denies fever Now requiring 2 L nasal cannula to maintain pulse ox more than 95%. - Related Data Allergies/Adverse Reactions: aspirin Allergy (Verified 02/03/18 20:43) Hives shellfish derived Allergy (Verified 02/03/18 20:22) Past Medical History - General Information source: Patient - Social History Smoking Status: Unknown if Ever Smoked Family History: Hypertension Patient has suicidal ideation: No Patient has homicidal ideation: No Pulmonary Medical History: Reports: Hx Asthma, Hx Bronchitis, Hx Pneumonia Renal/ Medical History: Denies: Hx Peritoneal Dialysis GI Medical History: Reports: Hx Gastroesophageal Reflux Disease Musculoskeletal Medical History: Reports Hx Arthritis Past Surgical History: Reports: Hx Bowel Surgery - gastirc bypass - Immunizations Hx Diphtheria, Pertussis, Tetanus Vaccination: Yes Hx Pneumococcal Vaccination: 02/12/08 Review of Systems - Review of Systems Notes: REVIEW OF SYSTEMS: CONSTITUTIONAL: -fevers, -chills EENT: -eye pain, -difficulty swallowing, -nasal congestion CARDIOVASCULAR: -chest pain, -syncope. RESPIRATORY: positive cough, positive SOB GASTROINTESTINAL: -abdominal pain, -nausea, -vomiting, -diarrhea GENITOURINARY: -dysuria, -hematuria MUSCULOSKELETAL: -back pain, -neck pain SKIN: -rash or skin lesions. HEMATOLOGIC: -easy bruising or bleeding. LYMPHATIC: -swollen, enlarged glands. NEUROLOGICAL: -altered mental status or loss of consciousness, -headache, - neurologic symptoms PSYCHIATRIC: -anxiety, -depression. ALL OTHER SYSTEMS REVIEWED AND NEGATIVE. Physical Exam - Vital signs Vitals: Resp BP Pulse Ox 39 H 122/73 97 10/30/18 09:31 10/30/18 09:31 10/30/18 09:31 - Notes Notes: PHYSICAL EXAMINATION: GENERAL: Well-appearing, well-nourished and in severe acute distress. HEAD: Atraumatic, normocephalic. EYES: Pupils equal round and reactive to light, extraocular movements intact, sclera anicteric, conjunctiva are normal. ENT: nares patent, oropharynx clear without exudates. Moist mucous membranes. NECK: Normal range of motion, supple without lymphadenopathy LUNGS: From respiratory distress HEART: Regular rate and rhythm without murmurs ABDOMEN: Soft, nontender, normoactive bowel sounds. No guarding, no rebound. No masses appreciated. EXTREMITIES: Normal range of motion, no pitting or edema. No cyanosis. NEUROLOGICAL: Cranial nerves grossly intact. Normal speech, normal gait. Normal sensory and motor exams. PSYCH: Normal mood, normal affect. SKIN: Warm, Dry, normal turgor, no rashes or lesions noted. Course - Re-evaluation Re-evalutation: 10/30/18 12:53 Critically ill-appearing female presents in respiratory distress with prehospital hypoxia. Patient placed on 2 L nasal cannula. 2 large-bore IVs established extensive lab work drawn including lactic acid and blood cultures. Patient found to have profound leukocytosis greater than 35,000. Patient has persistent tachycardia. Initiate fluid resuscitation 2 L fluid. Patient's chest x-ray is poor penetration given her body habitus. Order CTA chest to rule out pulmonary embolism further evaluate lungs. Findings dense consolidation right lower lobe right upper lobe. Patient started emergently on broad-spectrum antibiotics ceftriaxone and azithromycin. Patient will require admission to the hospital for her sepsis respiratory distress. - Vital Signs Vital signs: Temp Pulse Resp BP Pulse Ox 98.3 F 113 H 32 H 127/75 H 100 10/30/18 09:48 10/30/18 09:48 10/30/18 12:00 10/30/18 11:01 10/30/18 12:00 - Laboratory Result Diagrams: 10/30/18 10:20 10/30/18 09:30 Laboratory results interpreted by me: 10/30/18 10/30/18 10/30/18 09:30 09:33 10:20 WBC 35.4 H* RDW 14.5 H Seg Neuts % (Manual) 88 H Lymphocytes % (Manual) 2 L Abs Neuts (Manual) 32.2 H Abs Monocytes (Manual) 2.5 H D-Dimer Potassium 2.6 L* Chloride 116 H Carbon Dioxide 18 L POC Glucose 126 H Calcium 6.8 L* NT-Pro-B Natriuret Pep Total Protein 5.0 L Albumin 2.4 L 10/30/18 10/30/18 10:20 10:20 WBC RDW Seg Neuts % (Manual) Lymphocytes % (Manual) Abs Neuts (Manual) Abs Monocytes (Manual) D-Dimer 1.02 H Potassium Chloride Carbon Dioxide POC Glucose Calcium NT-Pro-B Natriuret Pep 212 H Total Protein Albumin Critical Care Note - Critical Care Note Total time excluding time spent on procedures (mins): 36 Discharge - Discharge Clinical Impression: Hypokalemia Leukocytosis Qualifiers: Leukocytosis type: other Qualified Code(s): D72.828 - Other elevated white blood cell count Pneumonia Qualifiers: Pneumonia type: due to unspecified organism Laterality: right Lung location: unspecified part of lung Qualified Code(s): J18.9 - Pneumonia, unspecified organism Sepsis Qualifiers: Sepsis type: sepsis due to unspecified organism Sepsis acute organ dysfunction status: with acute organ dysfunction Severe sepsis acute organ dysfunction type: acute respiratory failure Acute respiratory failure type: with hypoxia Severe sepsis shock status: without septic shock Qualified Code(s): A41.9 - Sepsis, unspecified organism; R65.20 - Severe sepsis without septic shock; J96.01 - Acute respiratory failure with hypoxia Condition: Serious Disposition: ADMITTED INPATIENT Admitting Provider: Rashaun Reddy Unit Admitted: Telemetry
[2018-10-30 10:48] LABS: HEMATOCRIT 41.7 % (36.0-47.0); HEMOGLOBIN 13.8 g/dL (12.0-15.5); MEAN CORPUSCULAR VOLUME 85 fl (80-97); PLATELET COUNT 374 10^3/uL (150-450); RED BLOOD COUNT 4.93 10^6/uL (3.72-5.28); RED CELL DISTRIBUTION WIDTH 14.5 % (11.5-14.0)
[2018-10-30] MEDS ORDERED: POTASSIUM CHLORIDE 20 MEQ PACKET PO ONE (11:20)
--- NOTE | 2018-10-30 11:20 | RADIOLOGY REPORT (SQ) ---
EXAM DESCRIPTION: CHEST SINGLE VIEW COMPLETED DATE/TIME: 10/30/2018 11:11 am REASON FOR STUDY: SOB COMPARISON: None. EXAM PARAMETERS: NUMBER OF VIEWS: One view. TECHNIQUE: Single frontal radiographic view of the chest acquired. RADIATION DOSE: NA LIMITATIONS: None. FINDINGS: LUNGS AND PLEURA: There is ill-defined retrocardiac opacification on the right. MEDIASTINUM AND HILAR STRUCTURES: No masses. Contour normal. HEART AND VASCULAR STRUCTURES: Cardiomegaly. No howard pulmonary edema. BONES: No acute findings. HARDWARE: None in the chest. OTHER: No other significant finding. IMPRESSION: Cardiomegaly without pulmonary edema. Cannot exclude a right lower lobe pneumonia. TECHNICAL DOCUMENTATION: JOB ID: [id number] [email or web address]- All Rights Reserved Reading location - IP/workstation name: [email or web address]
[2018-10-30] MEDS ORDERED: ACETAMINOPHEN 325 MG TABLET PO ONE (11:21)
[2018-10-30 11:26] LABS: WHITE BLOOD COUNT 35.4 10^3/uL (4.0-10.5)
[2018-10-30 11:28] LABS: NT PRO BNP 212 pg/mL (<125)
[2018-10-30 11:29] LABS: ABSOLUTE LYMPHOCYTES# (MANUAL) 0.7 10^3/uL (0.5-4.7); ABSOLUTE MONOCYTES # (MANUAL) 2.5 10^3/uL (0.1-1.4); BAND NEUTROPHILS % (MANUAL) 3 % (3-5); BASOPHILS % (MANUAL) 0 % (0-2); EOSINOPHILS % (MANUAL) 0 % (0-6); LYMPHOCYTES % (MANUAL) 2 % (13-45); MONOCYTES % (MANUAL) 7 % (3-13); PLATELET COMMENT ADEQUATE; RBC MORPHOLOGY COMMENT NORMO-CYTIC/CHROMIC; SEGMENTED NEUTROPHILS % (MAN) 88 % (42-78); TOTAL CELLS COUNTED 100; TROPONIN I < 0.012 ng/mL
[2018-10-30] MEDS ORDERED: NORMAL SALINE 1000 ML 1,000 ML IV ONE ×2 (12:30→14:24)
--- NOTE | 2018-10-30 12:40 | RADIOLOGY REPORT (SQ) ---
EXAM DESCRIPTION: CTA CHEST COMPLETED DATE/TIME: 10/30/2018 12:19 pm REASON FOR STUDY: dimer COMPARISON: 02/05/2018, chest x-ray dated 10/30/2018 TECHNIQUE: CT scan of the chest performed using helical scanning technique with dynamic intravenous contrast injection. Images reviewed with lung, soft tissue and bone windows. Reconstructed coronal and sagittal MPR images reviewed. Additional 3 dimensional post-processing performed to develop Maximal Intensity Projection images (CT P). All images stored on PACS. All CT scanners at this facility use dose modulation, iterative reconstruction, and/or weight based d osing when appropriate to reduce radiation dose to as low as reasonably achievable (ALARA). [facility]: Dose Right [facility]: CareDose [facility]: Dose Right [facility]: Teradose 4D [facility]: OneAway CONTRAST TYPE AND DOSE: contrast/concentration: Isovue 350.00 mg/ml; Total Contrast Delivered: 75.0 ml; Total Saline Delivered: 54.6 ml Contrast bolus optimized for the pulmonary arteries. Not diagnostic for the aorta. RENAL FUNCTION: BUN 8, creatinine 0.58 RADIATION DOSE: CT Rad equipment meets quality standard of care and radiation dose reduction techniq ues were employed. CTDIvol: 9.9 - 41.0 mGy. DLP: 1451 mGy-cm. . LIMITATIONS: None. FINDINGS: LUNGS AND PLEURA: There is dense consolidation in the right lower lobe consistent with pne umonia. There is airspace disease in the right upper lobe as well. Left lung field is grossly clear . No pleural effusions. There is minimal right basilar atelectasis. AORTA AND GREAT VESSELS: No aneurysm. Contrast bolus not optimized for the aorta. HEART: No pericardial effusion. No significant coronary artery calcifications. PULMONARY ARTERIES: No emboli visualized in the main pulmonary arteries or the segmental branches. HILAR AND MEDIASTINAL STRUCTURES: Right hilar fullness most likely reactive adenopathy. HARDWARE: None in the chest. UPPER ABDOMEN: No significant findings. Limited exam. THYROID AND OTHER SOFT TISSUES: No masses. No adenopathy. BONES: No acute or significant finding. 3D MIPS: Confirm above findings. OTHER: No other significant finding. IMPRESSION: Dense consolidation in the right lower lobe with fairly extensive airspace disease in th e right upper lobe as well. Probable reactive right hilar adenopathy. No pulmonary emboli. COMMENT: Quality ID # [id number]: Final reports with documentation of one or more dose reduction techniques (e.g., Automated exposure control, adjustment of the mA and/or kV according to patient size, use of iterative reconstruction technique) TECHNICAL DOCUMENTATION: JOB ID: [id number] [employer]- All Rights Reserved Reading location - IP/workstation name: [email or web address]
[2018-10-30] MEDS ORDERED: AZITHROMYCIN INJ 500 MG VIAL IV ONE (12:50)
[2018-10-30] MEDS ORDERED: CEFTRIAXONE 1 GM/D5W RTU 1 GM/50 ML RTUPB IV ONE (12:50)
[2018-10-30] MEDS ORDERED: MAG HYDROX/AL HYDROX/SIMETH SUSP 30 ML UDCUP PO PRN (13:21)
[2018-10-30] MEDS ORDERED: NORMAL SALINE 1000 ML 1,000 ML IV PRN (13:21)
[2018-10-30] MEDS ORDERED: VANCOMYCIN HCL 0 MG in DEXTROSE 5%-WATER 250 ML IV NR (13:30)
--- NOTE | 2018-10-30 13:32 | Progress Note Acknowledgement ---
Progress Note Acknowledgement Progess Note Acknowledgement: I, the undersigned member of the medical staff with appropriate privileges and with supervisory authority over [Jose Manuel Reddy], a dependent practice allied health professional, acknowledge that I have reviewed the progress notes entered on this patient, and in my professional judgment believe that the assessment made and/or any care evidenced was appropriate
--- NOTE | 2018-10-30 13:39 | EKG REPORT ---
SEVERITY:- ABNORMAL ECG - SINUS TACHYCARDIA CONSIDER POSTERIOR INFARCT BORDERLINE ST ABNORMALITIES, INFEROLATERAL LEADS : Confirmed by: Jorge Dennis MD 30-Oct-2018 13:39:15
[2018-10-30] MEDS ORDERED: DEXTROSE 50%-WATER 25 GM/50 ML DISP.SYRIN IV PRN ×2 (13:41)
[2018-10-30] MEDS ORDERED: GLUCAGON,HUMAN RECOMB 1 MG INJ IM PRN (13:41)
[2018-10-30] MEDS ORDERED: DEXTROSE 40% GEL 15 GM TUBE PO PRN ×2 (13:41)
--- NOTE | 2018-10-30 13:43 | PDOC H&P ---
History of Present Illness Admission Date/PCP: 10/30/18 13:21 Dr. peters Patient complains of: Shortness of breath, pain from her mid sternum radiating to her between her shoulder blades History of Present Illness: HIRAL ADLER is a 43 year old female who is morbidly obese [place] who presents with increased shortness of breath and sharp pain radiating from the mid chest to her shoulder blades. She states this pain is 8 out of 10 without radiation and does not make it better or worse. Patient does have a history of pneumonia that she spent time in the hospital this last Seema. She does not normally wear oxygen at home but does sleep with a CPAP machine at night due to her sleep apnea. She denies fever but has been coughing more than normal although is been nonproductive. She is now maintaining her O2 sat at 95% with 2 L nasal cannula. She had no treatment prior to arrival no known aggravating factors. Past Medical History Pulmonary Medical History: Reports: Asthma, Bronchitis, Pneumonia GI Medical History: Reports: Gastroesophageal Reflux Disease Musculoskeltal Medical History: Reports: Arthritis Hematology: Reports: Anemia Past Surgical History Past Surgical History: Reports: None Social History Information Source: Patient Lives with: Family Smoking Status: Never Smoker Frequency of Alcohol Use: None Hx Recreational Drug Use: No Drugs: None Hx Prescription Drug Abuse: No - Advance Directive Resuscitation Status: Full Code Family History Family History: CAD, DM, Hypertension Parental Family History Reviewed: Yes Children Family History Reviewed: Yes Sibling(s) Family History Reviewed.: Yes Medication/Allergy Home Medications: Amitriptyline HCl [Elavil 100 mg Tablet] 100 mg PO QHS 10/30/18 Cyanocobalamin (Vitamin B-12) [Vitamin B-12 Inj 1000 Mcg/1 ml Vial] 1,000 mcg IM .MONTHLY 10/30/18 Diphenhydramine HCl [Benadryl] 25 mg PO QHS 10/30/18 Hydromorphone HCl [Dilaudid] 8 mg PO QHS 10/30/18 Topiramate [Topamax 100 Mg Tablet] 100 mg PO QHS 10/30/18 Allergies/Adverse Reactions: aspirin Allergy (Verified 02/03/18 20:43) Hives shellfish derived Allergy (Verified 02/03/18 20:22) Review of Systems Constitutional: ABSENT: chills, fever(s), headache(s), weight gain, weight loss Eyes: ABSENT: visual disturbances Ears: ABSENT: hearing changes Cardiovascular: PRESENT: other - Midsternal chest pain radiating to her shoulder blades. ABSENT: chest pain, dyspnea on exertion, edema, orthropnea, palpitations Respiratory: PRESENT: cough, dyspnea. ABSENT: hemoptysis Gastrointestinal: ABSENT: abdominal pain, constipation, diarrhea, hematemesis, hematochezia, nausea, vomiting Genitourinary: ABSENT: dysuria, hematuria Musculoskeletal: ABSENT: joint swelling Integumentary: ABSENT: rash, wounds Neurological: ABSENT: abnormal gait, abnormal speech, confusion, dizziness, focal weakness, syncope Psychiatric: ABSENT: anxiety, depression, homidical ideation, suicidal ideation Endocrine: ABSENT: cold intolerance, heat intolerance, polydipsia, polyuria Hematologic/Lymphatic: ABSENT: easy bleeding, easy bruising Physical Exam Vital Signs: Temp Pulse Resp BP Pulse Ox 99 F 113 H 26 H 127/75 H 99 10/30/18 13:23 10/30/18 09:48 10/30/18 13:00 10/30/18 11:01 10/30/18 13:00 Intake & Output 10/29/18 10/30/18 10/31/18 06:59 06:59 06:59 Weight 139.706 kg General appearance: PRESENT: no acute distress, well-developed, well-nourished Head exam: PRESENT: atraumatic, normocephalic Eye exam: PRESENT: conjunctiva pink, EOMI, PERRLA. ABSENT: scleral icterus Ear exam: PRESENT: normal external ear exam Mouth exam: PRESENT: moist, tongue midline Neck exam: ABSENT: carotid bruit, JVD, lymphadenopathy, thyromegaly Respiratory exam: PRESENT: decreased breath sounds, rhonchi, symmetrical, unlabored. ABSENT: rales, wheezes Cardiovascular exam: PRESENT: RRR. ABSENT: diastolic murmur, rubs, systolic murmur Pulses: PRESENT: normal dorsalis pedis pul Vascular exam: PRESENT: normal capillary refill GI/Abdominal exam: PRESENT: normal bowel sounds, soft. ABSENT: distended, guarding, mass, organolmegaly, rebound, tenderness Rectal exam: PRESENT: deferred Extremities exam: PRESENT: full ROM. ABSENT: calf tenderness, clubbing, pedal edema Neurological exam: PRESENT: alert, awake, oriented to person, oriented to place, oriented to time, oriented to situation, CN II-XII grossly intact. ABSENT: motor sensory deficit Psychiatric exam: PRESENT: appropriate affect, normal mood. ABSENT: homicidal ideation, suicidal ideation Skin exam: PRESENT: dry, intact, warm. ABSENT: cyanosis, rash Results Laboratory Results: 10/30/18 10:20 10/30/18 09:30 10/30/18 10/30/18 10/30/18 09:30 09:30 10:20 WBC Cancelled 35.4 H* RBC Cancelled 4.93 Hgb Cancelled 13.8 Hct Cancelled 41.7 MCV Cancelled 85 MCH Cancelled 28.0 MCHC Cancelled 33.0 RDW Cancelled 14.5 H Plt Count Cancelled 374 Seg Neutrophils % Cancelled Not Reportable Sodium 140.0 Potassium 2.6 L* Chloride 116 H Carbon Dioxide 18 L Anion Gap 6 BUN 8 Creatinine 0.58 Est GFR ( Amer) > 60 Glucose 106 Lactic Acid Calcium 6.8 L* Total Bilirubin 0.6 AST 20 Alkaline Phosphatase 82 Total Protein 5.0 L Albumin 2.4 L 10/30/18 12:49 WBC RBC Hgb Hct MCV MCH MCHC RDW Plt Count Seg Neutrophils % Sodium Potassium Chloride Carbon Dioxide Anion Gap BUN Creatinine Est GFR ( Amer) Glucose Lactic Acid 4.7 H Calcium Total Bilirubin AST Alkaline Phosphatase Total Protein Albumin 10/30/18 10:20 Troponin I < 0.012 NT-Pro-B Natriuret Pep 212 H Impressions: Chest X-Ray 10/30/18 09:30 IMPRESSION: Cardiomegaly without pulmonary edema. Cannot exclude a right lower lobe pneumonia. Chest/Abdomen CTA 10/30/18 11:21 IMPRESSION: Dense consolidation in the right lower lobe with fairly extensive airspace disease in the right upper lobe as well. Probable reactive right hilar adenopathy. No pulmonary emboli. Assessment and Plan - Diagnosis (1) Community acquired pneumonia Is this a current diagnosis for this admission?: Yes Plan: 10/30/2018-patient with community acquired pneumonia. I reviewed chest x-ray and chest CT personally. I see a large right lower lobe infiltrate at this time. Patient was given IV Rocephin and azithromycin in the ER. However given the extent of this infiltrate I am opting to give her IV vancomycin and Zosyn until we have confirmed positive blood cultures. O2 as needed to keep sats 95 or better and BiPAP at bedtime. (2) Hypokalemia Is this a current diagnosis for this admission?: Yes Plan: 10/30/2018-potassium 2.6 in the ER. Patient at 40 MEQ p.o. x1 in the ER I will give her potassium 40 mEq p.o. x3 doses and repeat potassium level in a.m. (3) Hypocalcemia Is this a current diagnosis for this admission?: Yes Plan: 10/30/2018-patient's calcium corrects up to 7.76 per her albumin. I will give patient 2 g of IV calcium gluconate repeat calcium level in a.m. (4) Adrienne infection Is this a current diagnosis for this admission?: Yes Plan: 10/30/2018-patient states she easily gets Adrienne infections with IV or any kind of antibiotic. I will give her Diflucan 100 mg p.o. daily (5) Hyperglycemia Is this a current diagnosis for this admission?: Yes Plan: 10/30/2018-could be stress related secondary to pneumonia. Will obtain A1c Place patient on carbohydrate controlled diet sliding scale insulin before meals and at bedtime. (6) Chronic pain syndrome Is this a current diagnosis for this admission?: Yes Plan: 10/30/2018-chronic pain syndrome with neuralgia in the right lower leg. Patient takes Dilaudid p.o. at home. I will place patient on Dilaudid 1 mg IV every 3 hours as needed. Will titrate patient effect - Time Time Spent with patient: 35 or more minutes - Inpatient Certification Based on my medical assessment, after consideration of the patient's comorbidities, presenting symptoms, or acuity I expect that the services needed warrant INPATIENT care.: Yes I certify that my determination is in accordance with my understanding of Medicare's requirements for reasonable and necessary INPATIENT services [42 CFR 412.3e].: Yes Medical Necessity: Other - IV fluids, IV antibiotics
[2018-10-30] MEDS ORDERED: CALCIUM GLUCONATE 2,000 MG in DEXTROSE 5%-WATER 100 ML IV ONE (14:30)
[2018-10-30] MEDS: VANCOMYCIN HCL 1,500 MG in DEXTROSE 5%-WATER 250 ML IV SCH ×2 (15:39→21:50)
[2018-10-30] MEDS ORDERED: NORMAL SALINE 1000 ML 2,000 ML IV PRN (16:03)
[2018-10-30] MEDS ORDERED: NORMAL SALINE 1000 ML 2,000 ML IV ONE (17:28)
[2018-10-30 17:38] LABS: APPEARANCE,URINE CLEAR; BILIRUBIN,URINE NEGATIVE (NEGATIVE); COLOR,URINE STRAW; GLUCOSE, URINE NEGATIVE (NEGATIVE); KETONES,URINE NEGATIVE (NEGATIVE); LEUKOCYTE ESTERASE,URINE NEGATIVE (NEGATIVE); NITRITE,URINE NEGATIVE (NEGATIVE); PROTEIN,URINE NEGATIVE (NEGATIVE); URINE SPECIFIC GRAVITY 1.008; UROBILINOGEN,URINE NEGATIVE mg/dL (<2.0)
[2018-10-30] MEDS: HEPARIN SOD (PORCINE) 5,000 UNIT/ML 1 ML VIAL SUBCUT SCH ×2 (17:59→21:50)
[2018-10-30] MEDS: POTASSIUM CHLORIDE 20 MEQ PACKET PO SCH ×3 (17:59→23:30)
[2018-10-30] MEDS: INSULIN REG, HUMAN 100 UNIT/ML 3 ML VIAL (PYX) SUBCUT SCH ×2 (20:23→21:53)
[2018-10-30] MEDS: HYDROMORPHONE HCL INJ/PF 2 MG/ML AMPULE IV PRN (20:52)
[2018-10-30] MEDS: PIPERACILLIN SODIUM/TAZOBACTAM 3.375 GM in NORMAL SALINE 100 ML IV SCH ×2 (20:53→23:30)
[2018-10-30] MEDS: ZOLPIDEM TARTRATE 5 MG TABLET PO PRN (21:50)
[2018-10-30] MEDS: NORMAL SALINE 1000 ML 1,000 ML IV PRN (23:31)
[2018-10-31] MEDS: NORMAL SALINE 1000 ML 1,000 ML IV PRN ×2 (01:48→21:29)
[2018-10-31] MEDS: HYDROMORPHONE HCL INJ/PF 2 MG/ML AMPULE IV PRN ×5 (01:52→21:27)
[2018-10-31] MEDS: HEPARIN SOD (PORCINE) 5,000 UNIT/ML 1 ML VIAL SUBCUT SCH ×3 (05:11→21:26)
[2018-10-31] MEDS: PIPERACILLIN SODIUM/TAZOBACTAM 3.375 GM in NORMAL SALINE 100 ML IV SCH ×3 (05:11→17:55)
[2018-10-31 05:41] LABS: HEMATOCRIT 36.8 % (36.0-47.0); MEAN CORPUSCULAR HEMOGLOBIN 27.7 pg (27.0-33.4); MEAN CORPUSCULAR HGB CONC 32.5 g/dL (32.0-36.0); MEAN CORPUSCULAR VOLUME 85 fl (80-97); PLATELET COUNT 336 10^3/uL (150-450); RED BLOOD COUNT 4.32 10^6/uL (3.72-5.28); RED CELL DISTRIBUTION WIDTH 14.7 % (11.5-14.0); WHITE BLOOD COUNT 26.8 10^3/uL (4.0-10.5)
[2018-10-31] MEDS: VANCOMYCIN HCL 1,500 MG in DEXTROSE 5%-WATER 250 ML IV SCH ×3 (05:54→21:28)
[2018-10-31 06:03] LABS: ANION GAP 10 (5-19); BLOOD UREA NITROGEN 8 mg/dL (7-20); CALCIUM 8.4 mg/dL (8.4-10.2); CARBON DIOXIDE 18 mmol/L (22-30); CHLORIDE 112 mmol/L (98-107); GLUCOSE 135 mg/dL (75-110)
[2018-10-31 06:18] LABS: ABSOLUTE LYMPHOCYTES# (MANUAL) 0.5 10^3/uL (0.5-4.7); ABSOLUTE MONOCYTES # (MANUAL) 0.5 10^3/uL (0.1-1.4); BAND NEUTROPHILS % (MANUAL) 2 % (3-5); BASOPHILS % (MANUAL) 0 % (0-2); EOSINOPHILS % (MANUAL) 0 % (0-6); LYMPHOCYTES % (MANUAL) 2 % (13-45); MONOCYTES % (MANUAL) 2 % (3-13); SEGMENTED NEUTROPHILS % (MAN) 94 % (42-78); TOTAL CELLS COUNTED 100
[2018-10-31 06:19] LABS: ANISOCYTOSIS SLIGHT; PLATELET COMMENT ADEQUATE
[2018-10-31] MEDS: INSULIN REG, HUMAN 100 UNIT/ML 3 ML VIAL (PYX) SUBCUT SCH ×4 (08:07→21:28)
--- NOTE | 2018-10-31 08:45 | PDOC PROGRESS REPORT ---
Subjective Progress Note for:: 10/31/18 Subjective:: 10/31/2018-nausea Reason For Visit: RIGHT LOWER LOBE PNEUMONIA COMMUNITY-ACQUIRED, Physical Exam Vital Signs: Temp Pulse Resp BP Pulse Ox 98.2 F 68 20 95/70 L 100 10/31/18 07:44 10/31/18 07:44 10/31/18 07:44 10/31/18 07:44 10/31/18 07:44 Intake & Output 10/30/18 10/31/18 11/01/18 06:59 06:59 06:59 Intake Total 6743 Output Total 1100 Balance 5643 Weight 143 kg General appearance: PRESENT: no acute distress, well-developed, well-nourished Neck exam: ABSENT: carotid bruit, JVD, lymphadenopathy, thyromegaly Respiratory exam: PRESENT: crackles, decreased breath sounds, symmetrical, unlabored Cardiovascular exam: PRESENT: RRR. ABSENT: diastolic murmur, rubs, systolic murmur Pulses: PRESENT: normal dorsalis pedis pul Vascular exam: PRESENT: normal capillary refill GI/Abdominal exam: PRESENT: normal bowel sounds, soft. ABSENT: distended, guard ing, mass, organolmegaly, rebound, tenderness Extremities exam: PRESENT: full ROM. ABSENT: calf tenderness, clubbing, pedal edema Neurological exam: PRESENT: alert, awake, oriented to person, oriented to place, oriented to time, oriented to situation, CN II-XII grossly intact. ABSENT: motor sensory deficit Psychiatric exam: PRESENT: appropriate affect, normal mood. ABSENT: homicidal ideation, suicidal ideation Skin exam: PRESENT: dry, intact, warm. ABSENT: cyanosis, rash Results Laboratory Results: 10/31/18 04:40 10/31/18 04:40 10/30/18 10/30/18 10/30/18 09:30 09:30 10:20 WBC Cancelled 35.4 H* RBC Cancelled 4.93 Hgb Cancelled 13.8 Hct Cancelled 41.7 MCV Cancelled 85 MCH Cancelled 28.0 MCHC Cancelled 33.0 RDW Cancelled 14.5 H Plt Count Cancelled 374 Seg Neutrophils % Cancelled Not Reportable Sodium 140.0 Potassium 2.6 L* Chloride 116 H Carbon Dioxide 18 L Anion Gap 6 BUN 8 Creatinine 0.58 Est GFR ( Amer) > 60 Glucose 106 Lactic Acid Calcium 6.8 L* Phosphorus Magnesium Total Bilirubin 0.6 AST 20 Alkaline Phosphatase 82 Total Protein 5.0 L Albumin 2.4 L Urine Color Urine Appearance Urine pH Ur Specific [place] Urine Protein Urine Glucose (UA) Urine Ketones Urine Blood Urine Nitrite Ur Leukocyte Esterase Urine WBC (Auto) 10/30/18 10/30/18 10/30/18 12:49 16:43 17:15 WBC RBC Hgb Hct MCV MCH MCHC RDW Plt Count Seg Neutrophils % Sodium Potassium Chloride Carbon Dioxide Anion Gap BUN Creatinine Est GFR ( Amer) Glucose Lactic Acid 4.7 H 4.9 H Calcium Phosphorus Magnesium Total Bilirubin AST Alkaline Phosphatase Total Protein Albumin Urine Color STRAW Urine Appearance CLEAR Urine pH 6.0 Ur Specific [place] 1.008 Urine Protein NEGATIVE Urine Glucose (UA) NEGATIVE Urine Ketones NEGATIVE Urine Blood NEGATIVE Urine Nitrite NEGATIVE Ur Leukocyte Esterase NEGATIVE Urine WBC (Auto) 1 10/31/18 10/31/18 10/31/18 04:40 04:40 07:01 WBC 26.8 H RBC 4.32 Hgb 12.0 Hct 36.8 MCV 85 MCH 27.7 MCHC 32.5 RDW 14.7 H Plt Count 336 Seg Neutrophils % Not Reportable Sodium 140.2 Potassium 5.0 D Chloride 112 H Carbon Dioxide 18 L Anion Gap 10 BUN 8 Creatinine 0.69 Est GFR ( Amer) > 60 Glucose 135 H Lactic Acid 0.8 Calcium 8.4 Phosphorus 3.0 Magnesium 1.8 Total Bilirubin AST Alkaline Phosphatase Total Protein Albumin Urine Color Urine Appearance Urine pH Ur Specific [place] Urine Protein Urine Glucose (UA) Urine Ketones Urine Blood Urine Nitrite Ur Leukocyte Esterase Urine WBC (Auto) 10/30/18 10:20 Troponin I < 0.012 NT-Pro-B Natriuret Pep 212 H Impressions: Chest X-Ray 10/30/18 09:30 IMPRESSION: Cardiomegaly without pulmonary edema. Cannot exclude a right lower lobe pneumonia. Chest/Abdomen CTA 10/30/18 11:21 IMPRESSION: Dense consolidation in the right lower lobe with fairly extensive airspace disease in the right upper lobe as well. Probable reactive right hilar adenopathy. No pulmonary emboli. Assessment and Plan - Diagnosis (1) Community acquired pneumonia Is this a current diagnosis for this admission?: Yes Plan: 10/30/2018-patient with community acquired pneumonia. I reviewed chest x-ray and chest CT personally. I see a large right lower lobe infiltrate at this time. Patient was given IV Rocephin and azithromycin in the ER. However given the extent of this infiltrate I am opting to give her IV vancomycin and Zosyn until we have confirmed positive blood cultures. O2 as needed to keep sats 95 or better and BiPAP at bedtime. 10/31/2018-improved. Patient lactic acid went from 4.9-0.8. I will decrease IV fluids to 100 mL an hour normal saline at this time. I am going to continue Vanco and Zosyn. I will have patient get out of bed to the chair and also incentive spirometry. Will await cultures for offending organisms make changes plan of care as appropriate (2) Hypokalemia Is this a current diagnosis for this admission?: Yes Plan: 10/30/2018-potassium 2.6 in the ER. Patient at 40 MEQ p.o. x1 in the ER I will give her potassium 40 mEq p.o. x3 doses and repeat potassium level in a.m. 10/31/2018-stable continue to follow (3) Hypocalcemia Is this a current diagnosis for this admission?: Yes Plan: 10/30/2018-patient's calcium corrects up to 7.76 per her albumin. I will give patient 2 g of IV calcium gluconate repeat calcium level in a.m. 10/31/2018-stable continue to follow (4) Adrienne infection Is this a current diagnosis for this admission?: Yes Plan: 10/30/2018-patient states she easily gets Adrienne infections with IV or any kind of antibiotic. I will give her Diflucan 100 mg p.o. daily 10/31/2018-continue Diflucan (5) Hyperglycemia Is this a current diagnosis for this admission?: Yes Plan: 10/30/2018-could be stress related secondary to pneumonia. Will obtain A1c Place patient on carbohydrate controlled diet sliding scale insulin before meals and at bedtime. 10/31/2018-A1c 6.0 she has borderline diabetes. We will keep her on current therapy while she is in the hospital. (6) Chronic pain syndrome Is this a current diagnosis for this admission?: Yes Plan: 10/30/2018-chronic pain syndrome with neuralgia in the right lower leg. Patient takes Dilaudid p.o. at home. I will place patient on Dilaudid 1 mg IV every 3 hours as needed. Will titrate patient effect 10/31/2018-continue Dilaudid. Patient states good results. - Time Time Spent with patient: 15-24 minutes - Inpatient Certification Based on my medical assessment, after consideration of the patient's comorbidities, presenting symptoms, or acuity I expect that the services needed warrant INPATIENT care.: Yes I certify that my determination is in accordance with my understanding of Medicare's requirements for reasonable and necessary INPATIENT services [42 CFR 412.3e].: Yes Medical Necessity: Other - IV fluids, IV antibiotics
[2018-10-31] MEDS: FLUCONAZOLE 100 MG TABLET PO SCH (10:20)
[2018-10-31] MEDS: BUTALB/ACETAMINOPHEN/CAFFEINE 1 TAB EACH PO PRN (17:54)
[2018-10-31] MEDS: ZOLPIDEM TARTRATE 5 MG TABLET PO PRN (22:57)
[2018-11-01] MEDS: HYDROMORPHONE HCL INJ/PF 2 MG/ML AMPULE IV PRN ×3 (00:49→06:57)
[2018-11-01] MEDS: PIPERACILLIN SODIUM/TAZOBACTAM 3.375 GM in NORMAL SALINE 100 ML IV SCH ×4 (00:50→17:29)
[2018-11-01] MEDS: HEPARIN SOD (PORCINE) 5,000 UNIT/ML 1 ML VIAL SUBCUT SCH ×3 (05:43→22:10)
[2018-11-01] MEDS: VANCOMYCIN HCL 1,500 MG in DEXTROSE 5%-WATER 250 ML IV SCH (05:44)
[2018-11-01 06:06] LABS: ABSOLUTE BASOPHILS # (AUTO) 0.1 10^3/uL (0.0-0.2); ABSOLUTE EOSINOPHILS # (AUTO) 0.4 10^3/uL (0.0-0.6); ABSOLUTE LYMPHOCYTES (AUTO) 1.5 10^3/uL (0.5-4.7); ABSOLUTE MONOCYTES (AUTO) 0.7 10^3/uL (0.1-1.4); ABSOLUTE NEUT (AUTO) 11.6 10^3/uL (1.7-8.2); BASOPHILS % (AUTO) 0.6 % (0-2); EOSINOPHILS % (AUTO) 2.6 % (0-6); HEMOGLOBIN 11.5 g/dL (12.0-15.5); LYMPHOCYTES % (AUTO) 10.8 % (13-45); MEAN CORPUSCULAR HEMOGLOBIN 27.8 pg (27.0-33.4); MEAN CORPUSCULAR HGB CONC 32.8 g/dL (32.0-36.0); MEAN CORPUSCULAR VOLUME 85 fl (80-97); MONOCYTES % (AUTO) 4.7 % (3-13); PLATELET COUNT 339 10^3/uL (150-450); RED BLOOD COUNT 4.14 10^6/uL (3.72-5.28); RED CELL DISTRIBUTION WIDTH 14.2 % (11.5-14.0); SEGMENTED NEUTROPHILS % (AUTO) 81.3 % (42-78); TOTAL CELLS COUNTED % (AUTO) 100 %; WHITE BLOOD COUNT 14.3 10^3/uL (4.0-10.5)
[2018-11-01 06:26] LABS: BLOOD UREA NITROGEN 9 mg/dL (7-20); CALCIUM 8.1 mg/dL (8.4-10.2); GLUCOSE 98 mg/dL (75-110)
[2018-11-01 06:27] LABS: ANION GAP 6 (5-19); CARBON DIOXIDE 21 mmol/L (22-30); CHLORIDE 108 mmol/L (98-107); POTASSIUM 4.3 mmol/L (3.6-5.0)
[2018-11-01 06:28] LABS: VANCOMYCIN,TROUGH 22.7 ug/mL (5.0-20.0)
--- NOTE | 2018-11-01 07:51 | PDOC PROGRESS REPORT ---
Subjective Progress Note for:: 11/01/18 Subjective:: 10/31/2018-nausea 11/01/2018-no complaints this a.m. Reason For Visit: RIGHT LOWER LOBE PNEUMONIA COMMUNITY-ACQUIRED, Physical Exam Vital Signs: Temp Pulse Resp BP Pulse Ox 98.2 F 76 21 H 110/66 96 11/01/18 03:29 11/01/18 07:00 11/01/18 04:31 11/01/18 03:29 11/01/18 03:29 Intake & Output 10/31/18 11/01/18 11/02/18 06:59 06:59 06:59 Intake Total 6743 1270 Output Total 1100 2650 Balance 5643 -1380 Weight 143 kg 144.3 kg General appearance: PRESENT: no acute distress, well-developed, well-nourished Head exam: PRESENT: atraumatic, normocephalic Eye exam: PRESENT: conjunctiva pink, EOMI, PERRLA. ABSENT: scleral icterus Ear exam: PRESENT: normal external ear exam Mouth exam: PRESENT: moist, tongue midline Neck exam: ABSENT: carotid bruit, JVD, lymphadenopathy, thyromegaly Respiratory exam: PRESENT: clear to auscultation marita, decreased breath sounds, symmetrical. ABSENT: rales, rhonchi, wheezes Cardiovascular exam: PRESENT: RRR. ABSENT: diastolic murmur, rubs, systolic murmur Pulses: PRESENT: normal dorsalis pedis pul Vascular exam: PRESENT: normal capillary refill GI/Abdominal exam: PRESENT: normal bowel sounds, soft. ABSENT: distended, guarding, mass, organolmegaly, rebound, tenderness Rectal exam: PRESENT: deferred Extremities exam: PRESENT: full ROM. ABSENT: calf tenderness, clubbing, pedal edema Neurological exam: PRESENT: alert, awake, oriented to person, oriented to place, oriented to time, oriented to situation, CN II-XII grossly intact. ABSENT: m otor sensory deficit Psychiatric exam: PRESENT: appropriate affect, normal mood. ABSENT: homicidal ideation, suicidal ideation Skin exam: PRESENT: dry, intact, warm. ABSENT: cyanosis, rash Results Laboratory Results: 11/01/18 05:45 11/01/18 05:45 11/01/18 11/01/18 05:45 05:45 WBC 14.3 H RBC 4.14 Hgb 11.5 L Hct 35.0 L MCV 85 MCH 27.8 MCHC 32.8 RDW 14.2 H Plt Count 339 Seg Neutrophils % 81.3 H Sodium 135.4 L Potassium 4.3 Chloride 108 H Carbon Dioxide 21 L Anion Gap 6 BUN 9 Creatinine 0.69 Est GFR ( Amer) > 60 Glucose 98 Calcium 8.1 L 10/30/18 10:20 Troponin I < 0.012 NT-Pro-B Natriuret Pep 212 H Impressions: Chest X-Ray 10/30/18 09:30 IMPRESSION: Cardiomegaly without pulmonary edema. Cannot exclude a right lower lobe pneumonia. Chest/Abdomen CTA 10/30/18 11:21 IMPRESSION: Dense consolidation in the right lower lobe with fairly extensive airspace disease in the right upper lobe as well. Probable reactive right hilar adenopathy. No pulmonary emboli. Assessment and Plan - Diagnosis (1) Community acquired pneumonia Is this a current diagnosis for this admission?: Yes Plan: 10/30/2018-patient with community acquired pneumonia. I reviewed chest x-ray and chest CT personally. I see a large right lower lobe infiltrate at this time. Patient was given IV Rocephin and azithromycin in the ER. However given the extent of this infiltrate I am opting to give her IV vancomycin and Zosyn until we have confirmed positive blood cultures. O2 as needed to keep sats 95 or better and BiPAP at bedtime. 10/31/2018-improved. Patient lactic acid went from 4.9-0.8. I will decrease IV fluids to 100 mL an hour normal saline at this time. I am going to continue Vanco and Zosyn. I will have patient get out of bed to the chair and also incentive spirometry. Will await cultures for offending organisms make changes plan of care as appropriate 11/01/2018-improved. Patient remains on IV antibiotics this time awaiting cultures. Patient is using incentive spirometry. Anticipate discharge home in the a.m. if cultures return. (2) Hypokalemia Is this a current diagnosis for this admission?: Yes Plan: 10/30/2018-potassium 2.6 in the ER. Patient at 40 MEQ p.o. x1 in the ER I will give her potassium 40 mEq p.o. x3 doses and repeat potassium level in a.m. 10/31/2018-stable continue to follow 11/01/2018-stable (3) Hypocalcemia Is this a current diagnosis for this admission?: Yes Plan: 10/30/2018-patient's calcium corrects up to 7.76 per her albumin. I will give patient 2 g of IV calcium gluconate repeat calcium level in a.m. 10/31/2018-stable continue to follow 11/01/2018-stable (4) Adrienne infection Is this a current diagnosis for this admission?: Yes Plan: 10/30/2018-patient states she easily gets Adrienne infections with IV or any kind of antibiotic. I will give her Diflucan 100 mg p.o. daily 10/31/2018-continue Diflucan 11/01/2018-Diflucan (5) Hyperglycemia Is this a current diagnosis for this admission?: Yes Plan: 10/30/2018-could be stress related secondary to pneumonia. Will obtain A1c Place patient on carbohydrate controlled diet sliding scale insulin before meals and at bedtime. 10/31/2018-A1c 6.0 she has borderline diabetes. We will keep her on current therapy while she is in the hospital. 11/01/2018-stable continue to follow (6) Chronic pain syndrome Is this a current diagnosis for this admission?: Yes Plan: 10/30/2018-chronic pain syndrome with neuralgia in the right lower leg. Patient takes Dilaudid p.o. at home. I will place patient on Dilaudid 1 mg IV every 3 hours as needed. Will titrate patient effect 10/31/2018-continue Dilaudid. Patient states good results. 11/01/2018-stable at this time I will DC the IV Dilaudid and place her on Dilaudid 2 mg p.o. every 3 hours PRN - Time Time Spent with patient: 15-24 minutes - Inpatient Certification Based on my medical assessment, after consideration of the patient's comorbidities, presenting symptoms, or acuity I expect that the services needed warrant INPATIENT care.: Yes I certify that my determination is in accordance with my understanding of Medicare's requirements for reasonable and necessary INPATIENT services [42 CFR 412.3e].: Yes Medical Necessity: Other - IV antibiotics
[2018-11-01] MEDS: INSULIN REG, HUMAN 100 UNIT/ML 3 ML VIAL (PYX) SUBCUT SCH ×4 (09:48→22:08)
[2018-11-01] MEDS: ONDANSETRON HCL INJ/PF 4 MG/2 ML SDV IV PRN ×3 (09:55→22:11)
[2018-11-01] MEDS: FLUCONAZOLE 100 MG TABLET PO SCH (14:28)
[2018-11-01] MEDS: NORMAL SALINE 1000 ML 1,000 ML IV PRN (16:38)
[2018-11-01] MEDS: HYDROMORPHONE HCL 2 MG TABLET PO PRN ×2 (16:42→22:13)
[2018-11-01] MEDS: ZOLPIDEM TARTRATE 5 MG TABLET PO PRN (22:11)
[2018-11-01] MEDS: VANCOMYCIN HCL 1,000 MG in DEXTROSE 5%-WATER 250 ML IV SCH (22:12)
[2018-11-02] MEDS: PIPERACILLIN SODIUM/TAZOBACTAM 3.375 GM in NORMAL SALINE 100 ML IV SCH ×4 (00:58→18:33)
[2018-11-02] MEDS: HYDROMORPHONE HCL 2 MG TABLET PO PRN ×5 (01:05→20:37)
[2018-11-02 05:09] LABS: ABSOLUTE BASOPHILS # (AUTO) 0.1 10^3/uL (0.0-0.2); ABSOLUTE EOSINOPHILS # (AUTO) 0.3 10^3/uL (0.0-0.6); ABSOLUTE LYMPHOCYTES (AUTO) 1.6 10^3/uL (0.5-4.7); ABSOLUTE MONOCYTES (AUTO) 0.6 10^3/uL (0.1-1.4); ABSOLUTE NEUT (AUTO) 8.2 10^3/uL (1.7-8.2); EOSINOPHILS % (AUTO) 2.8 % (0-6); HEMATOCRIT 36.6 % (36.0-47.0); LYMPHOCYTES % (AUTO) 15.1 % (13-45); MEAN CORPUSCULAR HEMOGLOBIN 27.4 pg (27.0-33.4); MEAN CORPUSCULAR HGB CONC 32.7 g/dL (32.0-36.0); MEAN CORPUSCULAR VOLUME 84 fl (80-97); MONOCYTES % (AUTO) 5.5 % (3-13); PLATELET COUNT 342 10^3/uL (150-450); RED BLOOD COUNT 4.36 10^6/uL (3.72-5.28); RED CELL DISTRIBUTION WIDTH 14.2 % (11.5-14.0); SEGMENTED NEUTROPHILS % (AUTO) 75.6 % (42-78); TOTAL CELLS COUNTED % (AUTO) 100 %; WHITE BLOOD COUNT 10.8 10^3/uL (4.0-10.5)
[2018-11-02 05:29] LABS: ANION GAP 7 (5-19); BLOOD UREA NITROGEN 8 mg/dL (7-20); CALCIUM 7.9 mg/dL (8.4-10.2); CARBON DIOXIDE 23 mmol/L (22-30); CHLORIDE 108 mmol/L (98-107); GLUCOSE 87 mg/dL (75-110); POTASSIUM 4.3 mmol/L (3.6-5.0)
[2018-11-02] MEDS: HEPARIN SOD (PORCINE) 5,000 UNIT/ML 1 ML VIAL SUBCUT SCH ×3 (05:47→21:24)
[2018-11-02] MEDS: NORMAL SALINE 1000 ML 1,000 ML IV PRN ×2 (05:53→20:40)
[2018-11-02] MEDS: ONDANSETRON HCL INJ/PF 4 MG/2 ML SDV IV PRN (06:12)
[2018-11-02] MEDS: VANCOMYCIN HCL 1,000 MG in DEXTROSE 5%-WATER 250 ML IV SCH ×3 (07:42→21:27)
[2018-11-02] MEDS: BUTALB/ACETAMINOPHEN/CAFFEINE 1 TAB EACH PO PRN (07:48)
--- NOTE | 2018-11-02 07:55 | PDOC PROGRESS REPORT ---
Subjective Progress Note for:: 11/02/18 Subjective:: 10/31/2018-nausea 11/01/2018-no complaints this a.m. 11/02/2018-nausea Reason For Visit: RIGHT LOWER LOBE PNEUMONIA COMMUNITY-ACQUIRED, Physical Exam Vital Signs: Temp Pulse Resp BP Pulse Ox 99.4 F 72 17 142/88 H 95 11/01/18 22:40 11/01/18 22:40 11/01/18 22:40 11/01/18 22:40 11/01/18 22:40 Intake & Output 11/01/18 11/02/18 11/03/18 06:59 06:59 06:59 Intake Total 1270 3190 Output Total 2650 1850 Balance -1380 1340 Weight 144.3 kg 144.9 kg General appearance: PRESENT: no acute distress, well-developed, well-nourished Head exam: PRESENT: atraumatic, normocephalic Eye exam: PRESENT: conjunctiva pink, EOMI, PERRLA. ABSENT: scleral icterus Ear exam: PRESENT: normal external ear exam Mouth exam: PRESENT: moist, tongue midline Neck exam: ABSENT: carotid bruit, JVD, lymphadenopathy, thyromegaly Respiratory exam: PRESENT: decreased breath sounds, rhonchi. ABSENT: rales, wheezes Cardiovascular exam: PRESENT: RRR. ABSENT: diastolic murmur, rubs, systolic murmur Pulses: PRESENT: normal dorsalis pedis pul Vascular exam: PRESENT: normal capillary refill GI/Abdominal exam: PRESENT: normal bowel sounds, soft. ABSENT: distended, guarding, mass, organolmegaly, rebound, tenderness Rectal exam: PRESENT: deferred Extremities exam: PRESENT: full ROM. ABSENT: calf tenderness, clubbing, pedal edema Neurological exam: PRESENT: alert, awake, oriented to person, oriented to place, oriented to time, oriented to situation, CN II-XII grossly intact. ABSENT: motor sensory deficit Psychiatric exam: PRESENT: appropriate affect, normal mood. ABSENT: homicidal ideation, suicidal ideation Skin exam: PRESENT: dry, intact, warm. ABSENT: cyanosis, rash Results Laboratory Results: 11/02/18 04:18 11/02/18 04:18 11/02/18 11/02/18 04:18 04:18 WBC 10.8 H RBC 4.36 Hgb 12.0 Hct 36.6 MCV 84 MCH 27.4 MCHC 32.7 RDW 14.2 H Plt Count 342 Seg Neutrophils % 75.6 Sodium 138.4 Potassium 4.3 Chloride 108 H Carbon Dioxide 23 Anion Gap 7 BUN 8 Creatinine 0.75 Est GFR ( Amer) > 60 Glucose 87 Calcium 7.9 L 10/30/18 10:20 Troponin I < 0.012 NT-Pro-B Natriuret Pep 212 H Impressions: Chest X-Ray 10/30/18 09:30 IMPRESSION: Cardiomegaly without pulmonary edema. Cannot exclude a right lower lobe pneumonia. Chest/Abdomen CTA 10/30/18 11:21 IMPRESSION: Dense consolidation in the right lower lobe with fairly extensive airspace disease in the right upper lobe as well. Probable reactive right hilar adenopathy. No pulmonary emboli. Assessment and Plan - Diagnosis (1) Community acquired pneumonia Is this a current diagnosis for this admission?: Yes Plan: 10/30/2018-patient with community acquired pneumonia. I reviewed chest x-ray and chest CT personally. I see a large right lower lobe infiltrate at this time. Patient was given IV Rocephin and azithromycin in the ER. However given the extent of this infiltrate I am opting to give her IV vancomycin and Zosyn until we have confirmed positive blood cultures. O2 as needed to keep sats 95 or better and BiPAP at bedtime. 10/31/2018-improved. Patient lactic acid went from 4.9-0.8. I will decrease IV fluids to 100 mL an hour normal saline at this time. I am going to continue Vanco and Zosyn. I will have patient get out of bed to the chair and also incentive spirometry. Will await cultures for offending organisms make changes plan of care as appropriate 11/01/2018-improved. Patient remains on IV antibiotics this time awaiting cul tures. Patient is using incentive spirometry. Anticipate discharge home in the a.m. if cultures return. 11/02/2018-continues to show improvement. Remains on IV antibiotics awaiting cultures. (2) Hypokalemia Is this a current diagnosis for this admission?: Yes Plan: 10/30/2018-potassium 2.6 in the ER. Patient at 40 MEQ p.o. x1 in the ER I will give her potassium 40 mEq p.o. x3 doses and repeat potassium level in a.m. 10/31/2018-stable continue to follow 11/01/2018-stable 11/02/2018-stable continue to follow (3) Hypocalcemia Is this a current diagnosis for this admission?: Yes Plan: 10/30/2018-patient's calcium corrects up to 7.76 per her albumin. I will give patient 2 g of IV calcium gluconate repeat calcium level in a.m. 10/31/2018-stable continue to follow 11/01/2018-stable 11/02/2018-stable (4) Adrienne infection Is this a current diagnosis for this admission?: Yes Plan: 10/30/2018-patient states she easily gets Adrienne infections with IV or any kind of antibiotic. I will give her Diflucan 100 mg p.o. daily 10/31/2018-continue Diflucan 11/01/2018-Diflucan 11/02/2018-continue Diflucan (5) Hyperglycemia Is this a current diagnosis for this admission?: Yes Plan: 10/30/2018-could be stress related secondary to pneumonia. Will obtain A1c Place patient on carbohydrate controlled diet sliding scale insulin before meals and at bedtime. 10/31/2018-A1c 6.0 she has borderline diabetes. We will keep her on current therapy while she is in the hospital. 11/01/2018-stable continue to follow 11/02/2018-stable continue current therapy (6) Chronic pain syndrome Is this a current diagnosis for this admission?: Yes Plan: 10/30/2018-chronic pain syndrome with neuralgia in the right lower leg. Patient takes Dilaudid p.o. at home. I will place patient on Dilaudid 1 mg IV every 3 hours as needed. Will titrate patient effect 10/31/2018-continue Dilaudid. Patient states good results. 11/01/2018-stable at this time I will DC the IV Dilaudid and place her on Dilaudid 2 mg p.o. every 3 hours PRN 11/02/2018-continue Dilaudid p.o. - Time Time Spent with patient: 15-24 minutes - Inpatient Certification Based on my medical assessment, after consideration of the patient's com orbidities, presenting symptoms, or acuity I expect that the services needed warrant INPATIENT care.: Yes I certify that my determination is in accordance with my understanding of Medicare's requirements for reasonable and necessary INPATIENT services [42 CFR 412.3e].: Yes Medical Necessity: Other - IV antibiotics
[2018-11-02] MEDS: FLUCONAZOLE 100 MG TABLET PO SCH (10:29)
[2018-11-02] MEDS: INSULIN REG, HUMAN 100 UNIT/ML 3 ML VIAL (PYX) SUBCUT SCH ×4 (12:03→21:28)
[2018-11-02] MEDS: ZOLPIDEM TARTRATE 5 MG TABLET PO PRN (21:27)
[2018-11-03] MEDS: PIPERACILLIN SODIUM/TAZOBACTAM 3.375 GM in NORMAL SALINE 100 ML IV SCH ×2 (00:24→06:02)
[2018-11-03] MEDS: HYDROMORPHONE HCL 2 MG TABLET PO PRN ×3 (00:27→08:18)
[2018-11-03] MEDS: ONDANSETRON HCL INJ/PF 4 MG/2 ML SDV IV PRN (04:21)
[2018-11-03 04:46] LABS: HEMATOCRIT 40.7 % (36.0-47.0); HEMOGLOBIN 13.2 g/dL (12.0-15.5); MEAN CORPUSCULAR HEMOGLOBIN 27.6 pg (27.0-33.4); MEAN CORPUSCULAR HGB CONC 32.3 g/dL (32.0-36.0); MEAN CORPUSCULAR VOLUME 85 fl (80-97); PLATELET COUNT 335 10^3/uL (150-450); RED BLOOD COUNT 4.77 10^6/uL (3.72-5.28); RED CELL DISTRIBUTION WIDTH 14.4 % (11.5-14.0); WHITE BLOOD COUNT 12.4 10^3/uL (4.0-10.5)
[2018-11-03 05:05] LABS: ANION GAP 11 (5-19); BLOOD UREA NITROGEN 9 mg/dL (7-20); CARBON DIOXIDE 23 mmol/L (22-30); CHLORIDE 106 mmol/L (98-107); GLUCOSE 84 mg/dL (75-110); POTASSIUM 4.5 mmol/L (3.6-5.0)
[2018-11-03] MEDS: HEPARIN SOD (PORCINE) 5,000 UNIT/ML 1 ML VIAL SUBCUT SCH (05:51)
--- NOTE | 2018-11-03 08:04 | PDOC DISCHARGE SUMMARY ---
General - Admit/Disc Date/PCP Admission Date/Primary Care Provider: 10/30/18 13:21 Discharge Date: 11/03/18 - Discharge Diagnosis (1) Community acquired pneumonia Is this a current diagnosis for this admission?: Yes (2) Hypokalemia Is this a current diagnosis for this admission?: Yes (3) Hypocalcemia Is this a current diagnosis for this admission?: Yes (4) Adrienne infection Is this a current diagnosis for this admission?: Yes (5) Hyperglycemia Is this a current diagnosis for this admission?: Yes (6) Chronic pain syndrome Is this a current diagnosis for this admission?: Yes - Additional Information Resuscitation Status: Full Code Discharge Diet: As Tolerated Discharge Activity: Activity As Tolerated Prescriptions: Azithromycin 500 mg PO DAILY #5 tablet Cefuroxime Axetil [Ceftin 500 mg Tablet] 1 tab PO BID #20 tablet Fluconazole [Diflucan 100 mg Tablet] 100 mg PO DAILY #10 tablet Home Medications: Amitriptyline HCl [Elavil 100 mg Tablet] 100 mg PO QHS 10/30/18 Cyanocobalamin (Vitamin B-12) [Vitamin B-12 Inj 1000 Mcg/1 ml Vial] 1,000 mcg IM .MONTHLY 10/30/18 Diphenhydramine HCl [Benadryl] 25 mg PO QHS 10/30/18 Hydromorphone HCl [Dilaudid] 8 mg PO QHS 10/30/18 Topiramate [Topamax 100 mg Tablet] 100 mg PO QHS 10/30/18 Azithromycin 500 mg PO DAILY #5 tablet 11/03/18 Cefuroxime Axetil [Ceftin 500 mg Tablet] 1 tab PO BID #20 tablet 11/03/18 Fluconazole [Diflucan 100 mg Tablet] 100 mg PO DAILY #10 tablet 11/03/18 History of Present Illness Patient complains of: None this a.m. History of Present Illness: HIRAL ADLER is a 43 year old female who is morbidly obese pickwickian who presents with increased shortness of breath and sharp pain radiating from the mid chest to her shoulder blades. She states this pain is 8 out of 10 without radiation and does not make it better or worse. Patient does have a history of pneumonia that she spent time in the hospital this last Seema. She does not normally wear oxygen at home but does sleep with a CPAP machine at night due to her sleep apnea. She denies fever but has been coughing more than normal although is been nonproductive. She is now maintaining her O2 sat at 95% with 2 L nasal cannula. She had no treatment prior to arrival no known aggravating factors. Hospital Course Hospital Course: Patient was admitted on 10/30/2018 with a right lower lobe pneumonia. Patient is pickwickian in nature who wears CPAP at home. She had increased shortness of breath and sharp pain radiating from her mid chest to her right shoulder blades states his pain was 8 out of 10 despite use of home Dilaudid. Patient states she does have a history pneumonia and that she spent time in the hospital this last Seema. She does not normally wear oxygen at home but does have CPAP at night due to sleep apnea. She denies fever but has been coughing more than normal although this is been nonproductive. Patient was admitted placed on IV vancomycin and Zosyn. Patient has noted gradual improvement. Cultures are negative at this time. I will send patient home at this time and continue to follow cultures. I will place patient on Ceftin 5 mg p.o. twice daily and azithromycin 500 mg p.o. daily x5 days. I will also give patient Diflucan 100 mill grams p.o. daily as patient does have sensitivity to antibiotics and frequently gets Adrienne. I will have patient follow-up with her primary care practitioner Dr. peters in 1 week. Physical Exam Vital Signs: Temp Pulse Resp BP Pulse Ox 99.3 F 58 L 16 169/89 H 100 11/02/18 20:18 11/02/18 23:15 11/03/18 04:44 11/02/18 23:15 11/02/18 23:15 Intake & Output 11/02/18 11/03/18 11/04/18 06:59 06:59 06:59 Intake Total 3190 2670 Output Total 1850 Balance 1340 2670 Weight 144.9 kg 144 kg General appearance: PRESENT: no acute distress, well-developed, well-nourished Head exam: PRESENT: atraumatic, normocephalic Eye exam: PRESENT: conjunctiva pink, EOMI, PERRLA. ABSENT: scleral icterus Ear exam: PRESENT: normal external ear exam Mouth exam: PRESENT: moist, tongue midline Neck exam: ABSENT: carotid bruit, JVD, lymphadenopathy, thyromegaly Respiratory exam: PRESENT: clear to auscultation marita. ABSENT: rales, rhonchi, wheezes Cardiovascular exam: PRESENT: RRR. ABSENT: diastolic murmur, rubs, systolic murmur Pulses: PRESENT: normal dorsalis pedis pul Vascular exam: PRESENT: normal capillary refill GI/Abdominal exam: PRESENT: normal bowel sounds, soft. ABSENT: distended, guarding, mass, organolmegaly, rebound, tenderness Rectal exam: PRESENT: deferred Extremities exam: PRESENT: full ROM. ABSENT: calf tenderness, clubbing, pedal edema Neurological exam: PRESENT: alert, awake, oriented to person, oriented to place, oriented to time, oriented to situation, CN II-XII grossly intact. ABSENT: motor sensory deficit Psychiatric exam: PRESENT: appropriate affect, normal mood. ABSENT: homicidal ideation, suicidal ideation Skin exam: PRESENT: dry, intact, warm. ABSENT: cyanosis, rash Results Laboratory Results: 11/03/18 04:06 11/03/18 04:06 11/03/18 11/03/18 04:06 04:06 WBC 12.4 H RBC 4.77 Hgb 13.2 Hct 40.7 MCV 85 MCH 27.6 MCHC 32.3 RDW 14.4 H Plt Count 335 Sodium 139.5 Potassium 4.5 Chloride 106 Carbon Dioxide 23 Anion Gap 11 BUN 9 Creatinine 0.72 Est GFR ( Amer) > 60 Glucose 84 Calcium 8.0 L 10/30/18 10:20 Troponin I < 0.012 NT-Pro-B Natriuret Pep 212 H Impressions: Chest X-Ray 10/30/18 09:30 IMPRESSION: Cardiomegaly without pulmonary edema. Cannot exclude a right lower lobe pneumonia. Chest/Abdomen CTA 10/30/18 11:21 IMPRESSION: Dense consolidation in the right lower lobe with fairly extensive airspace disease in the right upper lobe as well. Probable reactive right hilar adenopathy. No pulmonary emboli. Qualifiers - * PATIENT BEING DISCHARGED WITH ANY OF THE FOLLOWING DIAGNOSIS: No Acute Heart Failure - Is this a Heart Failure Patient?: No Plan Time Spent: Greater than 30 Minutes
[2018-11-03 09:06] VITALS: BP 125/73
[2018-11-03] MEDS: INSULIN REG, HUMAN 100 UNIT/ML 3 ML VIAL (PYX) SUBCUT SCH (09:29)
[2018-11-03] MEDS: VANCOMYCIN HCL 1,000 MG in DEXTROSE 5%-WATER 250 ML IV SCH (09:29)
== END 2018-11-03 09:25 | disposition home or self-care (01) | DRG 194 ==
LOC: ER 09:17 → EH 13:21 → 4N 16:16 → EH 16:31 → 3N 20:27 → 3S 11-01 16:02 → 5 11-01 22:34
PROVIDERS: ADMIT Hospitalist; ATTEND Hospitalist
PROC: 5A09457 Assistance with Respiratory Ventilation, 24-96 Consecutive Hours, Continuous Positive Airway Pressure (ICD-10-PCS; principal; 2018-11-01)
DX: J18.9 Pneumonia, unspecified organism (principal); E66.2 Morbid (severe) obesity with alveolar hypoventilation; Z68.43 Body mass index [BMI] 50.0-59.9, adult; E87.6 Hypokalemia; K21.9 Gastro-esophageal reflux disease without esophagitis; M19.90 Unspecified osteoarthritis, unspecified site; E83.51 Hypocalcemia; G89.4 Chronic pain syndrome; M79.2 Neuralgia and neuritis, unspecified; M79.661 Pain in right lower leg; R73.03 Prediabetes; B37.9 Candidiasis, unspecified; Z98.84 Bariatric surgery status; Z88.6 Allergy status to analgesic agent; Z91.013 Allergy to seafood; Z82.49 Family history of ischemic heart disease and other diseases of the circulatory system
CPT/HCPCS: 36415; 71045; 71275; 80048; 80053; 80202; 81001; 82962; 83036; 83605; 83735; 83880; 84100; 84484; 85025; 85027; 85379; 87040; 93005; 93010; 94660; 94799; 96374; 99291; J0456; J0610; J0696; J1170; J1644; J1815; J2405; J2543; J3370; J3490; J7030; J7050; J7060

== ENCOUNTER 2019-03-02 10:21 | Observation (INO) | payer OTHER ==
--- NOTE | 2019-03-02 10:40 | ER Document Report ---
ED Medical Screen (RME) - General Chief Complaint: Shortness Of Breath Stated Complaint: WHEEZING,CONGESTION,FEVER Time Seen by Provider: 03/02/19 10:35 Mode of Arrival: Wheelchair Information source: Patient Notes: 43-year-old female presented to ED for complaint of chest pain through to the back she states is more to the right side she is very short of breath fever 100.8. She states she has had multiple episodes of pneumonia. She does have psoriatic arthritis diabetes sleep apnea high cholesterol she has had her gallbladder and her appendix removed right ankle surgery for a fractured ankle gastric bypass. She is alert oriented respirations regular nonlabored lungs are clear to auscultation. I have greeted and performed a rapid initial assessment of this patient. A comprehensive ED assessment and evaluation of the patient, analysis of test results and completion of medical decision making process will be conducted by an additional ED providers. TRAVEL OUTSIDE OF THE [place] IN LAST 30 DAYS: Yes - Related Data Allergies/Adverse Reactions: aspirin Allergy (Verified 02/03/18 20:43) Hives shellfish derived Allergy (Verified 02/03/18 20:22) Past Medical History - Social History Frequency of alcohol use: Occasional Drug Abuse: None Pulmonary Medical History: Reports: Hx Asthma, Hx Bronchitis, Hx Pneumonia Renal/ Medical History: Denies: Hx Peritoneal Dialysis GI Medical History: Reports: Hx Gastroesophageal Reflux Disease Musculoskeltal Medical History: Reports Hx Arthritis Past Surgical History: Reports: Hx Bowel Surgery - gastirc bypass - Immunizations Hx Diphtheria, Pertussis, Tetanus Vaccination: Yes Physical Exam - Vital signs Vitals: Temp Pulse Resp BP Pulse Ox 99.7 F 101 H 18 148/71 H 96 03/02/19 10:03/02/19 10:03/02/19 10:03/02/19 10:03/02/19 10:24 Course - Vital Signs Vital signs: Temp Pulse Resp BP Pulse Ox 99.7 F 101 H 18 148/71 H 96 03/02/19 10:03/02/19 10:03/02/19 10:03/02/19 10:03/02/19 10:24
[2019-03-02] MEDS ORDERED: RINGERS SOLUTION,LACTATED 1,000 ML IV ONE ×2 (12:17→12:32)
[2019-03-02] MEDS ORDERED: HYDROMORPHONE HCL INJ/PF 2 MG/ML AMPULE IV ONE (12:26)
--- NOTE | 2019-03-02 12:29 | RADIOLOGY REPORT (SQ) ---
EXAM DESCRIPTION: CHEST 2 VIEWS COMPLETED DATE/TIME: 03/02/2019 10:55 am REASON FOR STUDY: cough pain thorugh to back COMPARISON: 10/30/2018 EXAM PARAMETERS: NUMBER OF VIEWS: two views TECHNIQUE: Digital Frontal and Lateral radiographic views of the chest acquired. RADIATION DOSE: NA LIMITATIONS: none FINDINGS: LUNGS AND PLEURA: There is focal consolidation in the right upper lobe. Small right pleur al effusion. Left lung is clear. No pneumothorax. MEDIASTINUM AND HILAR STRUCTURES: No masses or contour abnormalities. HEART AND VASCULAR STRUCTURES: Heart normal size. No evidence for failure. BONES: No acute findings. HARDWARE: None in the chest. OTHER: No other significant finding. IMPRESSION: Right upper lobe pneumonia with small parapneumonic effusion. Follow-up to complete res olution recommended. TECHNICAL DOCUMENTATION: JOB ID: [id number] [employer]- All Rights Reserved Reading location - IP/workstation name: [email or web address]
--- NOTE | 2019-03-02 12:33 | ER Document Report ---
ED General - General Chief Complaint: Shortness Of Breath Stated Complaint: WHEEZING,CONGESTION,FEVER Time Seen by Provider: 03/02/19 10:35 Mode of Arrival: Wheelchair Information source: Patient, [facility] [place] Records Notes: 43-year-old female with morbid obesity, hypertension, history of gastric bypass presents with complaint of chest pain, back pain and shortness of breath that started this morning. Patient states that she has been "undescribable pain" in her chest that radiates to her back. Patient also states that she is having pain with inspiration. The symptoms have been constant since awakening this morning 4 hours ago. Denies any recent illness, cough, nausea, vomiting, abdominal pain. Does report a fever of 100.8 this morning. Denies sick contacts. Reports treatment for pneumonia in December. TRAVEL OUTSIDE OF THE [place] IN LAST 30 DAYS: Yes - HPI Onset: This morning Onset/Duration: Sudden Quality of pain: Sharp Severity: Moderate Pain Level: 2 Associated symptoms: Chest pain, Fever, Headache, Hurts to breath, Shortness of breath. denies: Nonproductive cough, Productive cough, Diarrhea, Nausea, Vomiting, Slow to respond Exacerbated by: Deep breathing Relieved by: Denies Similar symptoms previously: No Recently seen / treated by doctor: No - Related Data Allergies/Adverse Reactions: aspirin Allergy (Verified 02/03/18 20:43) Hives shellfish derived Allergy (Verified 02/03/18 20:22) Past Medical History - General Information source: Patient - Social History Smoking Status: Never Smoker Frequency of alcohol use: Occasional Drug Abuse: None Lives with: Family Family History: CAD, DM, Hypertension Patient has suicidal ideation: No Patient has homicidal ideation: No Pulmonary Medical History: Reports: Hx Asthma, Hx Bronchitis, Hx Pneumonia Renal/ Medical History: Denies: Hx Peritoneal Dialysis GI Medical History: Reports: Hx Gastroesophageal Reflux Disease Musculoskeletal Medical History: Reports Hx Arthritis Past Surgical History: Reports: Hx Bowel Surgery - gastirc bypass - Immunizations Hx Diphtheria, Pertussis, Tetanus Vaccination: Yes Hx Pneumococcal Vaccination: 02/12/08 Review of Systems - Review of Systems Constitutional: Chills, Fever EENT: denies: Blurred vision, Nose congestion Cardiovascular: Chest pain. denies: Palpitations, Dizziness Respiratory: Hurts to breathe, Short of breath. denies: Cough Gastrointestinal: denies: Abdominal pain, Vomiting, Blood streaked bowels, Black stools Genitourinary: denies: Dysuria, Frequency, Flank pain Female Genitourinary: No symptoms reported Musculoskeletal: Back pain, Leg swelling - Chronic leg swelling at baseline Skin: denies: Rash Hematologic/Lymphatic: denies: Blood clots Neurological/Psychological: Headaches. denies: Gait changes, Paralysis, Numbness -: Yes All other systems reviewed and negative Physical Exam - Vital signs Vitals: Temp Pulse Resp BP Pulse Ox 99.7 F 101 H 18 148/71 H 96 03/02/19 10:24 03/02/19 10:24 03/02/19 10:24 03/02/19 10:24 03/02/19 10:24 - Notes Notes: PHYSICAL EXAMINATION: GENERAL: Well-appearing, well-nourished and in no acute distress. HEAD: Atraumatic, normocephalic. EYES: Pupils equal round and reactive to light, extraocular movements intact, conjunctiva are normal. ENT: Nares patent, oropharynx clear without exudates. Moist mucous membranes. NECK: Normal range of motion, supple without lymphadenopathy. No nuchal rigidity, meningismus LUNGS: Breath sounds clear to auscultation bilaterally and equal. No wheezes rales or rhonchi. HEART: Regular rate and rhythm without murmurs ABDOMEN: Soft, nontender, nondistended abdomen. No guarding, no rebound. No masses appreciated. Female : deferred Musculoskeletal: Normal range of motion, no pitting or edema. No cyanosis. NEUROLOGICAL: Neuro exam Mental status; alert and oriented x3. Cranial nerves II through XII intact. Sensation intact to sharp/dull differentiation in all extremities. Motor; normal tone. No abnormal movements appreciated. No pronator drift. Strength tested and 5/5 in bilateral wrist flexion/extension, elbow flexion/extension, shoulder abduction, straight leg raise, knee flexion/extension, ankle dorsiflexion/plantar flexion. Patient ambulates with a steady gait. Coordination; no ataxia. Finger to nose and heel to colunga testing intact bilaterally. Reflexes; brachial radialis, biceps, and patellar reflexes within normal limits and symmetric bilaterally. Babinski with downgoing toes bilater ally. PSYCH: Normal mood, normal affect. SKIN: Warm, Dry, normal turgor, no rashes or lesions noted. Course - Re-evaluation Re-evalutation: 03/02/19 13:56 Laboratory 03/02/19 03/02/19 03/02/19 11:14 11:14 11:14 WBC Cancelled RBC Cancelled Hgb Cancelled Hct Cancelled MCV Cancelled MCH Cancelled MCHC Cancelled RDW Cancelled Plt Count Cancelled Lymph % (Auto) Cancelled Tucker % (Auto) Cancelled Eos % (Auto) Cancelled Baso % (Auto) Cancelled Absolute Neuts (auto) Cancelled Absolute Lymphs (auto) Cancelled Absolute Monos (auto) Cancelled Absolute Eos (auto) Cancelled Absolute Basos (auto) Cancelled Seg Neutrophils % Cancelled Platelet Estimate Cancelled VBG pH VBG pCO2 VBG HCO3 VBG Base Excess Sodium Cancelled Potassium Cancelled Chloride Cancelled Carbon Dioxide Cancelled Anion Gap Cancelled BUN Cancelled Creatinine Cancelled Est GFR ( Amer) Cancelled Est GFR (Non-Af Amer) Cancelled Est GFR (MDRD) Non-Af Cancelled Glucose Cancelled Calcium Cancelled Total Bilirubin Cancelled Direct Bilirubin Cancelled Neonat Total Bilirubin Cancelled Neonat Direct Bilirubin Cancelled Neonat Indirect Bili Cancelled AST Cancelled ALT Cancelled Alkaline Phosphatase Cancelled Troponin I Cancelled NT-Pro-B Natriuret Pep Cancelled Total Protein Cancelled Albumin Cancelled EGFR Cancelled Slides for Path Review Cancelled 03/02/19 03/02/19 03/02/19 12:34 12:34 12:34 WBC 19.1 H RBC 4.26 Hgb 11.9 L Hct 36.8 MCV 87 MCH 28.0 MCHC 32.3 RDW 14.3 H Plt Count 311 Lymph % (Auto) 5.4 L Tucker % (Auto) 5.2 Eos % (Auto) 0.4 Baso % (Auto) 0.4 Absolute Neuts (auto) 16.9 H Absolute Lymphs (auto) 1.0 Absolute Monos (auto) 1.0 Absolute Eos (auto) 0.1 Absolute Basos (auto) 0.1 Seg Neutrophils % 88.6 H Platelet Estimate VBG pH 7.36 VBG pCO2 38.6 VBG HCO3 21.2 VBG Base Excess -3.8 Sodium 137.9 Potassium 3.9 Chloride 110 H Carbon Dioxide 20 L Anion Gap 8 BUN 7 Creatinine 0.67 Est GFR ( Amer) > 60 Est GFR (Non-Af Amer) Est GFR (MDRD) Non-Af > 60 Glucose 84 Calcium 7.4 L Total Bilirubin 0.4 Direct Bilirubin 0.3 Neonat Total Bilirubin Not Reportable Neonat Direct Bilirubin Not Reportable Neonat Indirect Bili Not Reportable AST 18 ALT 11 Alkaline Phosphatase 93 Troponin I NT-Pro-B Natriuret Pep Total Protein 5.5 L Albumin 2.7 L EGFR Slides for Path Review Chest X-Ray 03/02/19 10:38 IMPRESSION: Right upper lobe pneumonia with small parapneumonic effusion. Follow-up to complete resolution recommended. Chest/Abdomen CTA 03/02/19 12:26 IMPRESSION: 1. Areas of consolidation in the right upper and left lower lobes suggestive of multifocal pneumonia. 2. No central or segmental pulmonary embolus. Temp Pulse Resp BP Pulse Ox 99.7 F 101 H 18 148/71 H 96 03/02/19 10:24 03/02/19 10:24 03/02/19 10:24 03/02/19 10:24 03/02/19 10:24 43-year-old female presents with dyspnea. Also reports fever of 101 at home. Upon arrival she is tachycardic, does not appear toxic or dehydrated and is in no respiratory distress. Patient reports treatment for pneumonia in October, December and January 2019. She states she was last given Keflex and doxycycline by her primary care physician. CTA was obtained and showed have no evidence of pulmonary embolism but does show multifocal pneumonia with an associated parapneumonic effusion. Blood cultures and lactic will be obtained. CBC does show a leukocytosis of 19. Patient did receive azithromycin, ceftriaxone and breathing treatments. She is agreeable to admission. Spoke to the hospital to Dr. DAILEY who has agreed to accept the patient. - Vital Signs Vital signs: Temp Pulse Resp BP Pulse Ox 99.7 F 101 H 21 H 138/80 H 100 03/02/19 10:24 03/02/19 10:24 03/02/19 15:00 03/02/19 14:59 03/02/19 15:00 - Laboratory Result Diagrams: 03/02/19 12:34 03/02/19 12:34 Laboratory results interpreted by me: 03/02/19 03/02/19 03/02/19 12:34 12:34 13:07 WBC 19.1 H Hgb 11.9 L RDW 14.3 H Lymph % (Auto) 5.4 L Absolute Neuts (auto) 16.9 H Seg Neutrophils % 88.6 H Chloride 110 H Carbon Dioxide 20 L Calcium 7.4 L NT-Pro-B Natriuret Pep 246 H Total Protein 5.5 L Albumin 2.7 L - Diagnostic Test Radiology reviewed: Image reviewed, Reports reviewed - EKG Interpretation by Me EKG shows normal: Sinus rhythm Rate: Normal Rhythm: NSR When compared to previous EKG there are: No significant change Discharge - Discharge Clinical Impression: Multifocal pneumonia Leukocytosis Qualifiers: Leukocytosis type: unspecified Qualified Code(s): D72.829 - Elevated white blood cell count, unspecified Dyspnea Qualifiers: Dyspnea type: unspecified Qualified Code(s): R06.00 - Dyspnea, unspecified Condition: Good Disposition: ADMITTED INPATIENT Admitting Provider: Arabella (Hospitalist) Unit Admitted: Medical Floor
[2019-03-02 12:51] LABS: VENOUS BLOOD BASE EXCESS -3.8 mmol/L; VENOUS BLOOD HCO3 21.2 mmol/L (20-32); VENOUS BLOOD PCO2 38.6 mmHg (35-63); VENOUS BLOOD PH 7.36 (7.30-7.42)
[2019-03-02 13:01] LABS: ABSOLUTE BASOPHILS # (AUTO) 0.1 10^3/uL (0.0-0.2); ABSOLUTE EOSINOPHILS # (AUTO) 0.1 10^3/uL (0.0-0.6); ABSOLUTE NEUT (AUTO) 16.9 10^3/uL (1.7-8.2); BASOPHILS % (AUTO) 0.4 % (0-2); EOSINOPHILS % (AUTO) 0.4 % (0-6); HEMATOCRIT 36.8 % (36.0-47.0); HEMOGLOBIN 11.9 g/dL (12.0-15.5); LYMPHOCYTES % (AUTO) 5.4 % (13-45); MEAN CORPUSCULAR HGB CONC 32.3 g/dL (32.0-36.0); MEAN CORPUSCULAR VOLUME 87 fl (80-97); MONOCYTES % (AUTO) 5.2 % (3-13); PLATELET COUNT 311 10^3/uL (150-450); RED BLOOD COUNT 4.26 10^6/uL (3.72-5.28); RED CELL DISTRIBUTION WIDTH 14.3 % (11.5-14.0); SEGMENTED NEUTROPHILS % (AUTO) 88.6 % (42-78); TOTAL CELLS COUNTED % (AUTO) 100 %; WHITE BLOOD COUNT 19.1 10^3/uL (4.0-10.5)
--- NOTE | 2019-03-02 13:03 | EKG REPORT ---
SEVERITY:- NORMAL ECG - SINUS RHYTHM : Confirmed by: Jorge Dennis MD 02-Mar-2019 13:01:52
[2019-03-02 13:11] LABS: ALBUMIN 2.7 g/dL (3.5-5.0); ALKALINE PHOSPHATASE 93 U/L (38-126); ANION GAP 8 (5-19); ASPARTATE AMINO TRANSFERASE 18 U/L (14-36); BILIRUBIN,DIRECT 0.3 mg/dL (0.0-0.4); BILIRUBIN,TOTAL 0.4 mg/dL (0.2-1.3); BLOOD UREA NITROGEN 7 mg/dL (7-20); CALCIUM 7.4 mg/dL (8.4-10.2); CARBON DIOXIDE 20 mmol/L (22-30); CHLORIDE 110 mmol/L (98-107); GLUCOSE 84 mg/dL (75-110); POTASSIUM 3.9 mmol/L (3.6-5.0); TOTAL PROTEIN 5.5 g/dL (6.3-8.2)
--- NOTE | 2019-03-02 13:23 | RADIOLOGY REPORT (SQ) ---
EXAM DESCRIPTION: CTA CHEST COMPLETED DATE/TIME: 03/02/2019 1:03 pm REASON FOR STUDY: Pain with deep inspiration, chest pain, shortness COMPARISON: None. TECHNIQUE: CT scan of the chest performed using helical scanning technique with dynamic intravenous contrast injection. Images reviewed with lung, soft tissue and bone windows. Reconstructed coronal and sagittal MPR images reviewed. Additional 3 dimensional post-processing performed to develop Maximal Intensity Projection images (ID P). All images stored on PACS. All CT scanners at this facility use dose modulation, iterative reconstruction, and/or weight based d osing when appropriate to reduce radiation dose to as low as reasonably achievable (ALARA). [facility]: Dose Right [facility]: CareDose [facility]: Dose Right [facility]: Teradose 4D [facility]: Xanodyne CONTRAST TYPE AND DOSE: Contrast/concentration: Isovue 350.00 mg/ml; Total Contrast Delivered: 70.0 ml; Total Saline Delivered: 71.0 ml Contrast bolus optimized for the pulmonary arteries. RENAL FUNCTION: PA and lateral views of the chest from 03/02/2019. RADIATION DOSE: CT Rad equipment meets quality standard of care and radiation dose reduction techniq ues were employed. CTDIvol: 9.9 - 40.7 mGy. DLP: 1416 mGy-cm. . LIMITATIONS: None. FINDINGS: LUNGS AND PLEURA: Evaluation is limited due to motion artifact. The trachea main bronchi are patent. There are multifocal areas of consolidation in the right upper and left lower lobes. Th ere is a trace amount of free fluid in the right pleural space. There is no pneumothorax. AORTA AND GREAT VESSELS: No thoracic aortic aneurysm or dissection HEART: No pericardial effusion. PULMONARY ARTERIES: Evaluation is limited due to motion artifact. There no central or segmental pulm onary embolus. HILAR AND MEDIASTINAL STRUCTURES: No identified masses or abnormal nodes. HARDWARE: None in the chest. UPPER ABDOMEN: Hiatal hernia and findings of prior gastric bypass and cholecystectomy. The spleen is normal in size. The nodular enlargement of the left adrenal gland is nonspecific and could represen t adenomatous hyperplasia. THYROID AND OTHER SOFT TISSUES: No masses or adenopathy. BONES: No acute findings 3D MIPS: Confirm above findings. OTHER: No other finding. IMPRESSION: 1. Areas of consolidation in the right upper and left lower lobes suggestive of multifoc al pneumonia. 2. No central or segmental pulmonary embolus. COMMENT: Quality ID # [id number]: Final reports with documentation of one or more dose reduction techniques (e.g., Automated exposure control, adjustment of the mA and/or kV according to patient size, use of iterative reconstruction technique) TECHNICAL DOCUMENTATION: JOB ID: [id number] [employer]- All Rights Reserved Reading location - IP/workstation name: [email or web address]
[2019-03-02] MEDS ORDERED: CEFTRIAXONE INJ 1000 MG VIAL IV ONE (13:44)
[2019-03-02] MEDS ORDERED: IPRATROPIUM/ALBUTEROL 0.5-2.5 MG/3 ML AMPUL NEB ONE (13:46)
[2019-03-02] MEDS ORDERED: AZITHROMYCIN 250 MG TABLET PO ONE (13:52)
[2019-03-02 14:07] LABS: NT PRO BNP 246 pg/mL (<125)
[2019-03-02 14:12] LABS: A TYPE INFLUENZA AG NEGATIVE (NEGATIVE); B INFLUENZA AG NEGATIVE (NEGATIVE)
[2019-03-02 14:25] LABS: TROPONIN I < 0.012 ng/mL
[2019-03-02] MEDS ORDERED: ONDANSETRON HCL INJ/PF 4 MG/2 ML SDV IV PRN (14:56)
[2019-03-02] MEDS ORDERED: PROMETHAZINE HCL INJ 25 MG/1 ML VIAL IV PRN (14:56)
[2019-03-02] MEDS ORDERED: OXYCODONE-ACETAMINOPHEN 5-325 MG TABLET PO PRN (14:56)
[2019-03-02] MEDS ORDERED: TEMAZEPAM 15 MG CAPSULE PO PRN (14:56)
[2019-03-02] MEDS ORDERED: ACETAMINOPHEN 325 MG TABLET PO PRN (14:56)
--- NOTE | 2019-03-02 15:36 | PDOC H&P ---
History of Present Illness Admission Date/PCP: 03/02/19 14:06 KANDY GOODWIN NP History of Present Illness: HIRAL ADLER is a 43 year old female past medical history of asthma, morbid ob esity status post gastric bypass, hypertension, chronic pain with opiate dependence, migraine headaches, presenting to ED with acute shortness of breath associated with fever, chills, bilateral lower ribs pain explained as sharp radiating to back worse with coughing and improved with resting and started around 3 AM when she woke up from sleeping. Denies any sick contact, had recently traveled to [facility]. Denies any headache, nausea, vomiting, abdominal pain, diarrhea, constipation, u rinary symptoms, orthopnea, paroxysmal nocturnal dyspnea, weight changes, numbness, headache, tingling. In ED she was found to have leukocytosis and a CTA ruled out PE but confirmed multifocal pneumonia. Hospitalist consulted for admission. Past Medical History Pulmonary Medical History: Reports: Asthma, Bronchitis, Pneumonia GI Medical History: Reports: Gastroesophageal Reflux Disease Musculoskeltal Medical History: Reports: Arthritis Hematology: Reports: Anemia Social History Lives with: Family Smoking Status: Never Smoker Frequency of Alcohol Use: Rare Hx Recreational Drug Use: No Drugs: None Hx Prescription Drug Abuse: No Family History Family History: CAD, DM, Hypertension Parental Family History Reviewed: Yes Children Family History Reviewed: Yes Sibling(s) Family History Reviewed.: Yes Medication/Allergy Home Medications: Amitriptyline HCl [Elavil 100 mg Tablet] 100 mg PO QHS 10/30/18 Cyanocobalamin (Vitamin B-12) [Vitamin B-12 Inj 1000 Mcg/1 ml Vial] 1,000 mcg IM .MONTHLY 10/30/18 Diphenhydramine HCl [Benadryl] 50 mg PO QHS 10/30/18 Hydromorphone HCl [Dilaudid] 8 mg PO QHS 10/30/18 Topiramate [Topamax 100 mg Tablet] 100 mg PO QHS 10/30/18 Albuterol Sulfate [Proair Hfa Inhalation Aerosol 8.5 gm Mdi] 2 puff IH Q4HP PRN 03/02/19 Galcanezumab-Gnlm [Emgality] 1 dose SQ .MONTHLY 03/02/19 Ipratropium/Albuterol Sulfate [Duoneb 3 ml Ampul] 3 ml NEB RTQ6HP PRN 03/02/19 Zolmitriptan 2.5 mg PO ASDIR PRN 03/02/19 Allergies/Adverse Reactions: aspirin Allergy (Verified 02/03/18 20:43) Hives shellfish derived Allergy (Verified 02/03/18 20:22) Physical Exam Vital Signs: Temp Pulse Resp BP Pulse Ox 99.7 F 101 H 21 H 138/80 H 100 03/02/19 10:24 03/02/19 10:24 03/02/19 15:00 03/02/19 14:59 03/02/19 15:00 Intake & Output 03/01/19 03/02/19 03/03/19 06:59 06:59 06:59 Intake Total 1999 Balance 1999 Weight 139.1 kg General appearance: PRESENT: morbidly obese Head exam: PRESENT: atraumatic, normocephalic Respiratory exam: PRESENT: crackles. ABSENT: rales, rhonchi, wheezes Cardiovascular exam: PRESENT: RRR. ABSENT: diastolic murmur, rubs, systolic murmur GI/Abdominal exam: PRESENT: normal bowel sounds, soft. ABSENT: distended, guarding, mass, organolmegaly, rebound, tenderness Extremities exam: PRESENT: full ROM. ABSENT: calf tenderness, clubbing, pedal edema Neurological exam: PRESENT: alert, awake, oriented to person, oriented to place, oriented to time, oriented to situation, CN II-XII grossly intact. ABSENT: motor sensory deficit Results Laboratory Results: 03/02/19 12:34 03/02/19 12:34 03/02/19 03/02/19 03/02/19 11:14 11:14 12:34 WBC Cancelled 19.1 H RBC Cancelled 4.26 Hgb Cancelled 11.9 L Hct Cancelled 36.8 MCV Cancelled 87 MCH Cancelled 28.0 MCHC Cancelled 32.3 RDW Cancelled 14.3 H Plt Count Cancelled 311 Seg Neutrophils % Cancelled 88.6 H VBG pH VBG pCO2 VBG HCO3 VBG Base Excess Sodium Cancelled Potassium Cancelled Chloride Cancelled Carbon Dioxide Cancelled Anion Gap Cancelled BUN Cancelled Creatinine Cancelled Est GFR ( Amer) Cancelled Est GFR (Non-Af Amer) Cancelled Glucose Cancelled Lactic Acid Calcium Cancelled Total Bilirubin Cancelled AST Cancelled Alkaline Phosphatase Cancelled Total Protein Cancelled Albumin Cancelled 03/02/19 03/02/19 03/02/19 12:34 12:34 14:13 WBC RBC Hgb Hct MCV MCH MCHC RDW Plt Count Seg Neutrophils % VBG pH 7.36 VBG pCO2 38.6 VBG HCO3 21.2 VBG Base Excess -3.8 Sodium 137.9 Potassium 3.9 Chloride 110 H Carbon Dioxide 20 L Anion Gap 8 BUN 7 Creatinine 0.67 Est GFR ( Amer) > 60 Est GFR (Non-Af Amer) Glucose 84 Lactic Acid 2.0 Calcium 7.4 L Total Bilirubin 0.4 AST 18 Alkaline Phosphatase 93 Total Protein 5.5 L Albumin 2.7 L 03/02/19 03/02/19 11:14 13:07 Troponin I Cancelled < 0.012 NT-Pro-B Natriuret Pep Cancelled 246 H Impressions: Chest X-Ray 03/02/19 10:38 IMPRESSION: Right upper lobe pneumonia with small parapneumonic effusion. Follow-up to complete resolution recommended. Chest/Abdomen CTA 03/02/19 12:26 IMPRESSION: 1. Areas of consolidation in the right upper and left lower lobes suggestive of multifocal pneumonia. 2. No central or segmental pulmonary embolus. Assessment and Plan - Diagnosis (1) Multifocal pneumonia Is this a current diagnosis for this admission?: Yes Plan: Likely community-acquired due to gram-positives including Streptococcus pneumonia. CTA positive for multifocal pneumonia. Negative for PE. Admit to floor, empiric IV antibiotics, blood culture, sputum culture. (2) Asthma Qualifiers: Asthma severity: mild Asthma persistence: intermittent Asthma complication type: uncomplicated Qualified Code(s): J45.20 - Mild intermittent asthma, uncomplicated Is this a current diagnosis for this admission?: Yes Plan: History of mild intermittent asthma. On albuterol as needed. Does not seem to be exacerbated. Continue supplemental oxygen, duo nebs. Restart home meds. Outpatient PCP and pulmonology follow-up. (3) Chronic pain syndrome Is this a current diagnosis for this admission?: Yes Plan: On hydromorphone p.o. Restart home meds. Monitor for respiratory depression. Outpatient PCP follow- up. (4) Morbid obesity Is this a current diagnosis for this admission?: Yes Plan: BMI 50.6. Is status post gastric bypass 2008. Diet and lifestyle modification recommended. (5) Hx of migraine headaches Is this a current diagnosis for this admission?: Yes Plan: On Topamax and amitriptyline. Denies any acute flare. Restart home meds. Outpatient PCP follow-up
[2019-03-02 15:55] LABS: CHOLESTEROL 133.97 mg/dL (0-200); TRIGLYCERIDES 82 mg/dL (<150)
[2019-03-02 16:06] LABS: DIRECT LDL 31 mg/dL (<100)
[2019-03-02 16:11] LABS: FREE T4 (FREE THYROXINE) 0.94 ng/dL (0.78-2.19)
[2019-03-02 16:25] LABS: THYROID STIMULATING HORMONE 0.47 uIU/mL (0.47-4.68)
[2019-03-02] MEDS: DOCUSATE SODIUM 100 MG/10 ML UDC PO SCH (17:56)
[2019-03-02] MEDS: MORPHINE SULFATE 10 MG/ML INJ IV PRN (17:56)
[2019-03-02] MEDS: IPRATROPIUM/ALBUTEROL 0.5-2.5 MG/3 ML AMPUL NEB SCH (20:29)
[2019-03-02] MEDS: AMITRIPTYLINE HCL 50 MG TABLET PO SCH (21:29)
[2019-03-02] MEDS: DIPHENHYDRAMINE HCL 25 MG CAPSULE PO SCH (21:29)
[2019-03-02] MEDS: HYDROMORPHONE HCL 2 MG TABLET PO SCH (21:29)
[2019-03-02] MEDS: TOPIRAMATE 100 MG TABLET PO SCH (21:32)
[2019-03-02] MEDS: METHYLPREDNISOLONE INJ 40 MG/1 ML SDV IV SCH (21:32)
[2019-03-02] MEDS ORDERED: HYDROMORPHONE HCL 2 MG TABLET PO SCH (22:00)
[2019-03-02] MEDS ORDERED: (PENDING PHARMACY ID) (Hydromorphone Hcl [Dilaudid] 8 MG) PO SCH (22:00)
[2019-03-02] MEDS ORDERED: (PENDING PHARMACY ID) (Amitriptyline Hcl [Elavil 100 Mg Tablet] 100 MG) PO SCH (22:00)
[2019-03-03 05:32] LABS: HEMATOCRIT 38.5 % (36.0-47.0); HEMOGLOBIN 12.5 g/dL (12.0-15.5); MEAN CORPUSCULAR HEMOGLOBIN 27.7 pg (27.0-33.4); MEAN CORPUSCULAR HGB CONC 32.5 g/dL (32.0-36.0); MEAN CORPUSCULAR VOLUME 85 fl (80-97); PLATELET COUNT 385 10^3/uL (150-450); RED BLOOD COUNT 4.52 10^6/uL (3.72-5.28); RED CELL DISTRIBUTION WIDTH 14.4 % (11.5-14.0); WHITE BLOOD COUNT 10.7 10^3/uL (4.0-10.5)
[2019-03-03 05:55] LABS: ABSOLUTE LYMPHOCYTES# (MANUAL) 0.5 10^3/uL (0.5-4.7); BASOPHILS % (MANUAL) 0 % (0-2); EOSINOPHILS % (MANUAL) 0 % (0-6); LYMPHOCYTES % (MANUAL) 5 % (13-45); MONOCYTES % (MANUAL) 0 % (3-13); SEGMENTED NEUTROPHILS % (MAN) 95 % (42-78); TOTAL CELLS COUNTED 100
[2019-03-03 05:57] LABS: ANISOCYTOSIS SLIGHT; OVALOCYTES 1+; PLATELET COMMENT ADEQUATE; POIKILOCYTOSIS SLIGHT; TOXIC GRANULATION 1+
[2019-03-03 06:12] LABS: ALKALINE PHOSPHATASE 95 U/L (38-126); ANION GAP 11 (5-19); ASPARTATE AMINO TRANSFERASE 20 U/L (14-36); BILIRUBIN,DIRECT 0.3 mg/dL (0.0-0.4); BILIRUBIN,TOTAL 0.3 mg/dL (0.2-1.3); BLOOD UREA NITROGEN 10 mg/dL (7-20); CALCIUM 8.4 mg/dL (8.4-10.2); CARBON DIOXIDE 19 mmol/L (22-30); CHLORIDE 106 mmol/L (98-107); GLUCOSE 179 mg/dL (75-110)
[2019-03-03 06:33] LABS: POTASSIUM 4.9 mmol/L (3.6-5.0)
[2019-03-03] MEDS: RINGERS SOLUTION,LACTATED 1,000 ML IV PRN ×2 (06:35→15:55)
[2019-03-03] MEDS: PANTOPRAZOLE SODIUM 40 MG TABLET.DR PO SCH (06:35)
[2019-03-03] MEDS: METHYLPREDNISOLONE INJ 40 MG/1 ML SDV IV SCH ×3 (06:35→21:15)
[2019-03-03] MEDS: MORPHINE SULFATE 10 MG/ML INJ IV PRN ×3 (06:41→19:54)
[2019-03-03] MEDS: IPRATROPIUM/ALBUTEROL 0.5-2.5 MG/3 ML AMPUL NEB SCH ×3 (08:19→20:18)
[2019-03-03] MEDS: CEFTRIAXONE 1 GM/D5W RTU 1 GM/50 ML RTUPB IV SCH (09:27)
[2019-03-03] MEDS: ENOXAPARIN SODIUM INJ 40 MG/0.4 ML DISP.SYRIN SUBCUT SCH (09:27)
[2019-03-03] MEDS: DOCUSATE SODIUM 100 MG/10 ML UDC PO SCH ×2 (09:28→17:06)
--- NOTE | 2019-03-03 15:19 | PDOC PROGRESS REPORT ---
Subjective Progress Note for:: 03/03/19 Subjective:: Still with lots of pleuritic pain especially on the right subcostal area. Breathing is still uncomfortable. Very frustrated due to the recurrent episodes of pneumonia. Reason For Visit: MULTIFOCAL PNEUMONIA, LEUKOCYTOSIS, DYSPNEA Physical Exam Vital Signs: Temp Pulse Resp BP Pulse Ox 98.5 F 80 16 118/95 H 94 03/03/19 11:01 03/03/19 14:03 03/03/19 14:03 03/03/19 11:01 03/03/19 14:03 Intake & Output 03/02/19 03/03/19 03/04/19 06:59 06:59 06:59 Intake Total 2120 390 Balance 2120 390 Weight 141.9 kg General appearance: PRESENT: cooperative, mild distress, morbidly obese, well- developed Head exam: PRESENT: atraumatic, normocephalic Eye exam: PRESENT: conjunctiva pink. ABSENT: scleral icterus Ear exam: PRESENT: normal external ear exam. ABSENT: bleeding, drainage Respiratory exam: PRESENT: clear to auscultation marita, symmetrical, other - Clearly exhibits some discomfort with deep breathing. ABSENT: rales, rhonchi, tachypnea, wheezes Cardiovascular exam: PRESENT: RRR, +S1, +S2 GI/Abdominal exam: PRESENT: normal bowel sounds, soft. ABSENT: distended - Protuberant abdomen, tenderness Rectal exam: PRESENT: deferred Neurological exam: PRESENT: alert, awake, oriented to person, oriented to place, oriented to time, oriented to situation, CN II-XII grossly intact Psychiatric exam: PRESENT: anxious, other - Depressed affect. ABSENT: agitated Focused psych exam: ABSENT: delusional, restlessness Skin exam: PRESENT: dry, normal color, warm. ABSENT: pallor, rash Results Laboratory Results: 03/03/19 04:45 03/03/19 04:45 03/02/19 03/02/19 03/03/19 12:34 12:34 04:45 WBC 10.7 H RBC 4.52 Hgb 12.5 Hct 38.5 MCV 85 MCH 27.7 MCHC 32.5 RDW 14.4 H Plt Count 385 Seg Neutrophils % Not Reportable Sodium Potassium Chloride Carbon Dioxide Anion Gap BUN Creatinine Est GFR ( Amer) Glucose Calcium Magnesium Total Bilirubin AST Alkaline Phosphatase Total Protein Albumin Triglycerides 82 Cholesterol 133.97 LDL Cholesterol Direct 31 VLDL Cholesterol 16.0 HDL Cholesterol 36 L TSH 0.47 Free T4 0.94 03/03/19 04:45 WBC RBC Hgb Hct MCV MCH MCHC RDW Plt Count Seg Neutrophils % Sodium 136.0 L Potassium 4.9 D Chloride 106 Carbon Dioxide 19 L Anion Gap 11 BUN 10 Creatinine 0.73 Est GFR ( Amer) > 60 Glucose 179 H Calcium 8.4 Magnesium 2.1 Total Bilirubin 0.3 AST 20 Alkaline Phosphatase 95 Total Protein 6.0 L Albumin 3.0 L Triglycerides Cholesterol LDL Cholesterol Direct VLDL Cholesterol HDL Cholesterol TSH Free T4 03/02/19 03/02/19 11:14 13:07 Troponin I Cancelled < 0.012 NT-Pro-B Natriuret Pep Cancelled 246 H Impressions: Chest X-Ray 03/02/19 10:38 IMPRESSION: Right upper lobe pneumonia with small parapneumonic effusion. Follow-up to complete resolution recommended. Chest/Abdomen CTA 03/02/19 12:26 IMPRESSION: 1. Areas of consolidation in the right upper and left lower lobes suggestive of multifocal pneumonia. 2. No central or segmental pulmonary embolus. Assessment and Plan - Diagnosis (1) Multifocal pneumonia Is this a current diagnosis for this admission?: Yes Plan: Likely community-acquired due to gram-positives including Streptococcus pneumonia. CTA positive for multifocal pneumonia. Negative for PE. Admit to floor, empiric IV antibiotics, blood culture, sputum culture. 03/04/2019-currently on Rocephin. The patient has had multiple episodes of pneumonia this past year. Her primary care provider has initiated work-up to exclude autoimmune diseases and other possibilities. 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 I have requested records from the primary care provider. Most of that work-up would be as an outpatient. We will continue antibiotics. Her white blood cell count has improved significantly. Possible discharge tomorrow if improvement continues. (2) Asthma Qualifiers: Asthma severity: mild Asthma persistence: intermittent Asthma complication type: uncomplicated Qualified Code(s): J45.20 - Mild intermittent asthma, uncomplicated Is this a current diagnosis for this admission?: Yes Plan: History of mild intermittent asthma. On albuterol as needed. Does not seem to be exacerbated. Continue supplemental oxygen, duo nebs. Restart home meds. Outpatient PCP and pulmonology follow-up. 03/04/2019-not in acute exacerbation of asthma. Currently on duo nebs and systemic steroids. (3) Morbid obesity Is this a current diagnosis for this admission?: Yes Plan: BMI is 54.2. She may also have obesity hypoventilation syndrome and/or sleep apnea. She has had gastric surgery and would benefit from an ongoing aggressive weight loss management program. (4) Chronic pain syndrome Is this a current diagnosis for this admission?: Yes Plan: 03/04/2019-back on home medication regimen. Pain management will continue on an outpatient basis. (5) Hx of migraine headaches Is this a current diagnosis for this admission?: Yes Plan: Topamax and amitriptyline have been continued. Emgality is on hold at this time. - Plan Summary Summary: Continue antibiotic therapy. Recurrent pneumonias over the past year is concerning. Defer to primary care provider for ongoing work-up. Consider second opinion from pulmonology as well as immunology work-up. - Time Time Spent with patient: 15-24 minutes Medications reviewed and adjusted accordingly: Yes Anticipated discharge: Home Within: within 48 hours
[2019-03-03] MEDS: HYDROMORPHONE HCL 2 MG TABLET PO SCH (21:13)
[2019-03-03] MEDS: TOPIRAMATE 100 MG TABLET PO SCH (21:13)
[2019-03-03] MEDS: AMITRIPTYLINE HCL 50 MG TABLET PO SCH (21:13)
[2019-03-03] MEDS: DIPHENHYDRAMINE HCL 25 MG CAPSULE PO SCH (21:13)
[2019-03-04] MEDS: RINGERS SOLUTION,LACTATED 1,000 ML IV PRN ×2 (00:59→09:25)
[2019-03-04] MEDS: MORPHINE SULFATE 10 MG/ML INJ IV PRN ×2 (01:03→12:32)
[2019-03-04] MEDS: PANTOPRAZOLE SODIUM 40 MG TABLET.DR PO SCH (05:14)
[2019-03-04] MEDS: METHYLPREDNISOLONE INJ 40 MG/1 ML SDV IV SCH ×2 (05:15→13:55)
[2019-03-04] MEDS: IPRATROPIUM/ALBUTEROL 0.5-2.5 MG/3 ML AMPUL NEB SCH ×2 (08:23→13:34)
[2019-03-04] MEDS: CEFTRIAXONE 1 GM/D5W RTU 1 GM/50 ML RTUPB IV SCH (09:25)
[2019-03-04] MEDS: DOCUSATE SODIUM 100 MG/10 ML UDC PO SCH (09:27)
[2019-03-04] MEDS: ENOXAPARIN SODIUM INJ 40 MG/0.4 ML DISP.SYRIN SUBCUT SCH (09:27)
[2019-03-04] MEDS ORDERED: MORPHINE SULFATE 10 MG/ML INJ IV PRN (13:59)
[2019-03-04 14:42] VITALS: BP 147/81
--- NOTE | 2019-03-04 16:33 | PDOC DISCHARGE SUMMARY ---
Impression - Admit/DC Date/PCP Admission Date/Primary Care Provider: 03/02/19 14:06 KANDY GOODWIN NP Discharge Date: 03/04/19 - Discharge Diagnosis (1) Multifocal pneumonia Is this a current diagnosis for this admission?: Yes (2) Asthma Is this a current diagnosis for this admission?: Yes (3) Morbid obesity Is this a current diagnosis for this admission?: Yes (4) Chronic pain syndrome Is this a current diagnosis for this admission?: Yes (5) Hx of migraine headaches Is this a current diagnosis for this admission?: Yes - Assessment Summary: Continue antibiotic therapy. Recurrent pneumonias over the past year is concerning. Defer to primary care provider for ongoing work-up. Consider second opinion from pulmonology as well as immunology work-up. - Additional Information Resuscitation Status: Full Code Discharge Diet: As Tolerated Discharge Activity: Activity As Tolerated Referrals: KANDY GOODWIN NP [Primary Care Provider] - 03/18/19 8:45 am (Appt with Theresa Flores.) Prescriptions: Cefuroxime Axetil [Ceftin 500 mg Tablet] 1 tab PO BID 10 Days #20 tablet Prednisone [Deltasone 10 mg Tablet] 10 mg PO ASDIR 12 Days #42 tablet Pantoprazole Sodium [Protonix [address] Tablet] 40 mg PO Q6AM 30 Days #30 tablet.dr Ketorolac Tromethamine [Toradol 10 mg Tablet] 10 mg PO Q6HP PRN 3 Days #12 tablet PRN Reason: Home Medications: Amitriptyline HCl [Elavil 100 mg Tablet] 100 mg PO QHS 10/30/18 Cyanocobalamin (Vitamin B-12) [Vitamin B-12 Inj 1000 Mcg/1 ml Vial] 1,000 mcg IM .MONTHLY 10/30/18 Diphenhydramine HCl [Benadryl] 50 mg PO QHS 10/30/18 Hydromorphone HCl [Dilaudid] 8 mg PO QHS 10/30/18 Topiramate [Topamax 100 mg Tablet] 100 mg PO QHS 10/30/18 Albuterol Sulfate [Proair HFA Inhalation Aerosol 8.5 gm MDI] 2 puff IH Q4HP PRN 03/02/19 Galcanezumab-Gnlm [Emgality Pen] 1 dose SQ .MONTHLY 03/02/19 Ipratropium/Albuterol Sulfate [Duoneb 3 ml Ampul] 3 ml NEB RTQ6HP PRN 03/02/19 Zolmitriptan 2.5 mg PO ASDIR PRN 03/02/19 Cefuroxime Axetil [Ceftin 500 mg Tablet] 1 tab PO BID 10 Days #20 tablet 03/04/19 Docusate Sodium [Colace Udc 100 mg/10 ml Oral Soln] 100 mg PO BID udc 03/04/19 Hydromorphone HCl [Dilaudid 2 mg Tablet] 8 mg PO QHS tablet 03/04/19 Ketorolac Tromethamine [Toradol 10 mg Tablet] 10 mg PO Q6HP PRN 3 Days #12 tablet 03/04/19 Pantoprazole Sodium [Protonix [address] Tablet] 40 mg PO Q6AM 30 Days #30 tablet.dr 03/04/19 Prednisone [Deltasone 10 mg Tablet] 10 mg PO ASDIR 12 Days #42 tablet 03/04/19 History of Present Illiness History of Present Illness: IHRAL ADLER is a 43 year old female with a history of asthma, morbid obesity status post gastric bypass, hypertension and chronic pain with opiate dependence. She also has a history of migraine headaches. She presented to the emergency department with acute onset shortness of breath with fever, chills and bilateral lower rib pain that is sharp and radiating to the back. Is worse with coughing but improved with resting. The patient had a leukocytosis and a CT angiogram ruled out pulmonary embolus but it did confirm multifocal pneumonia. The patient has had 5-6 episodes of pneumonia over the last 12 to 14 months. Hospital Course Hospital Course: The patient had an unremarkable hospital course. She was treated with antibiotics and felt better. Her only complaint was the pain that was most likely from coughing. She was on room air and was afebrile at the time of discharge. Physical Exam Vital Signs: Temp Pulse Resp BP Pulse Ox 98.3 F 99 18 147/81 H 95 03/04/19 14:00 03/04/19 14:00 03/04/19 14:00 03/04/19 14:00 03/04/19 14:00 Intake & Output 03/03/19 03/04/19 03/05/19 06:59 06:59 06:59 Intake Total 2120 2970 1050 Balance 2120 2970 1050 Weight 141.9 kg 143.2 kg General appearance: PRESENT: no acute distress, morbidly obese, well-developed Head exam: PRESENT: atraumatic, normocephalic Respiratory exam: PRESENT: chest wall tenderness, clear to auscultation marita, unlabored. ABSENT: rales, rhonchi, tachypnea, wheezes Cardiovascular exam: PRESENT: RRR, +S1, +S2 GI/Abdominal exam: PRESENT: normal bowel sounds, soft, other - Protuberant abdomen. ABSENT: tenderness Neurological exam: PRESENT: alert, awake, oriented to person, oriented to place, oriented to time, oriented to situation, CN II-XII grossly intact Results Laboratory Results: WBC 10.7 10^3/uL (4.0-10.5) H 03/03/19 04:45 RBC 4.52 10^6/uL (3.72-5.28) 03/03/19 04:45 Hgb 12.5 g/dL (12.0-15.5) 03/03/19 04:45 Hct 38.5 % (36.0-47.0) 03/03/19 04:45 MCV 85 fl (80-97) 03/03/19 04:45 MCH 27.7 pg (27.0-33.4) 03/03/19 04:45 MCHC 32.5 g/dL (32.0-36.0) 03/03/19 04:45 RDW 14.4 % (11.5-14.0) H 03/03/19 04:45 Plt Count 385 10^3/uL (150-450) 03/03/19 04:45 Lymph % (Auto) Not Reportable 03/03/19 04:45 [place] % (Auto) Not Reportable 03/03/19 04:45 Eos % (Auto) Not Reportable 03/03/19 04:45 Baso % (Auto) Not Reportable 03/03/19 04:45 Absolute Neuts (auto) Not Reportable 03/03/19 04:45 Absolute Lymphs (auto) Not Reportable 03/03/19 04:45 Absolute Monos (auto) Not Reportable 03/03/19 04:45 Absolute Eos (auto) Not Reportable 03/03/19 04:45 Absolute Basos (auto) Not Reportable 03/03/19 04:45 Total Counted 100 03/03/19 04:45 Seg Neutrophils % Not Reportable 03/03/19 04:45 Seg Neuts % (Manual) 95 % (42-78) H 03/03/19 04:45 Lymphocytes % (Manual) 5 % (13-45) L 03/03/19 04:45 Monocytes % (Manual) 0 % (3-13) L 03/03/19 04:45 Eosinophils % (Manual) 0 % (0-6) 03/03/19 04:45 Basophils % (Manual) 0 % (0-2) 03/03/19 04:45 Abs Neuts (Manual) 10.2 10^3/uL (1.7-8.2) H 03/03/19 04:45 Abs Lymphs (Manual) 0.5 10^3/uL (0.5-4.7) 03/03/19 04:45 Abs Monocytes (Manual) 0.0 10^3/uL (0.1-1.4) L 03/03/19 04:45 Absolute Eos (Manual) 0.0 10^3/uL (0.0-0.6) 03/03/19 04:45 Abs Basophils (Manual) 0.0 10^3/uL (0.0-0.2) 03/03/19 04:45 Toxic Granulation 1+ 03/03/19 04:45 Platelet Estimate Cancelled 03/02/19 11:14 Platelet Comment ADEQUATE 03/03/19 04:45 Poikilocytosis SLIGHT 03/03/19 04:45 Anisocytosis SLIGHT 03/03/19 04:45 Ovalocytes 1+ 03/03/19 04:45 VBG pH 7.36 (7.30-7.42) 03/02/19 12:34 VBG pCO2 38.6 mmHg (35-63) 03/02/19 12:34 VBG HCO3 21.2 mmol/L (20-32) 03/02/19 12:34 VBG Base Excess -3.8 mmol/L 03/02/19 12:34 Sodium 136.0 mmol/L (137-145) L 03/03/19 04:45 Potassium 4.9 mmol/L (3.6-5.0) D 03/03/19 04:45 Chloride 106 mmol/L (98-107) 03/03/19 04:45 Carbon Dioxide 19 mmol/L (22-30) L 03/03/19 04:45 Anion Gap 11 (5-19) 03/03/19 04:45 BUN 10 mg/dL (7-20) 03/03/19 04:45 Creatinine 0.73 mg/dL (0.52-1.25) 03/03/19 04:45 Est GFR ( Amer) > 60 (>60) 03/03/19 04:45 Est GFR (Non-Af Amer) Cancelled 03/02/19 11:14 Est GFR (MDRD) Non-Af > 60 (>60) 03/03/19 04:45 Glucose 179 mg/dL (75-110) H 03/03/19 04:45 Hemoglobin A1c % 5.8 % (4.7-6.0) 03/02/19 12:34 Lactic Acid 2.0 mmol/L (0.7-2.1) 03/02/19 14:13 Calcium 8.4 mg/dL (8.4-10.2) 03/03/19 04:45 Magnesium 2.1 mg/dL (1.6-2.3) 03/03/19 04:45 Total Bilirubin 0.3 mg/dL (0.2-1.3) 03/03/19 04:45 Direct Bilirubin 0.3 mg/dL (0.0-0.4) 03/03/19 04:45 Neonat Total Bilirubin Not Reportable 03/03/19 04:45 Neonat Direct Bilirubin Not Reportable 03/03/19 04:45 Neonat Indirect Bili Not Reportable 03/03/19 04:45 AST 20 U/L (14-36) 03/03/19 04:45 ALT 13 U/L (<35) 03/03/19 04:45 Alkaline Phosphatase 95 U/L (38-126) 03/03/19 04:45 Troponin I < 0.012 ng/mL 03/02/19 13:07 NT-Pro-B Natriuret Pep 246 pg/mL (<125) H 03/02/19 13:07 Total Protein 6.0 g/dL (6.3-8.2) L 03/03/19 04:45 Albumin 3.0 g/dL (3.5-5.0) L 03/03/19 04:45 Triglycerides 82 mg/dL (<150) 03/02/19 12:34 Cholesterol 133.97 mg/dL (0-200) 03/02/19 12:34 LDL Cholesterol Direct 31 mg/dL (<100) 03/02/19 12:34 VLDL Cholesterol 16.0 mg/dL (10-31) 03/02/19 12:34 HDL Cholesterol 36 mg/dL (>40) L 03/02/19 12:34 EGFR Cancelled 03/02/19 11:14 TSH 0.47 uIU/mL (0.47-4.68) 03/02/19 12:34 Free T4 0.94 ng/dL (0.78-2.19) 03/02/19 12:34 Influenza A (Rapid) NEGATIVE (NEGATIVE) 03/02/19 13:07 Influenza B (Rapid) NEGATIVE (NEGATIVE) 03/02/19 13:07 Slides for Path Review Cancelled 03/02/19 11:14 03/02/19 03/02/19 11:14 13:07 Troponin I Cancelled < 0.012 NT-Pro-B Natriuret Pep Cancelled 246 H Impressions: Chest X-Ray 03/02/19 10:38 IMPRESSION: Right upper lobe pneumonia with small parapneumonic effusion. Follow-up to complete resolution recommended. Chest/Abdomen CTA 03/02/19 12:26 IMPRESSION: 1. Areas of consolidation in the right upper and left lower lobes suggestive of multifocal pneumonia. 2. No central or segmental pulmonary embolus. Plan Health Concerns: Recurrent pneumonia episodes. Plan of Treatment: Complete antibiotics as prescribed. Follow-up with Dr. Espinoza for a second opinion. Goals: Further investigation and hopefully identification of the cause of her recurrent episodes of pneumonia. Time Spent: Greater than 30 Minutes Stroke Is this a Stroke Patient?: No Acute Heart Failure - Is this a Heart Failure Patient?: No
== END 2019-03-04 17:34 | disposition home or self-care (01) ==
LOC: ER 10:21 → INTOOBSV 14:06 → EH 14:06 → 4S 15:49
PROVIDERS: ADMIT Internal Medicine; ATTEND Internal Medicine
DX: J15.4 Pneumonia due to other streptococci (principal); J45.20 Mild intermittent asthma, uncomplicated; E66.01 Morbid (severe) obesity due to excess calories; G89.4 Chronic pain syndrome; Z87.01 Personal history of pneumonia (recurrent); G43.909 Migraine, unspecified, not intractable, without status migrainosus; F11.20 Opioid dependence, uncomplicated; M54.9 Dorsalgia, unspecified; M79.89 Other specified soft tissue disorders; L40.50 Arthropathic psoriasis, unspecified; E11.9 Type 2 diabetes mellitus without complications; G47.30 Sleep apnea, unspecified; E78.00 Pure hypercholesterolemia, unspecified; Z79.899 Other long term (current) drug therapy; Z98.84 Bariatric surgery status; Z82.49 Family history of ischemic heart disease and other diseases of the circulatory system; Z68.43 Body mass index [BMI] 50.0-59.9, adult
CPT/HCPCS: 93005; 94640 ×4; 99285; 96361; 96374; 36415 ×2; 87040; 84439; 83605; 83735; 84443; 85025 ×2; 80053 ×2; 84484; 83036; 82803; 80061; 87804; 83880; 71046; 71275; 93010; G0378 ×4; J3490 ×6; J2920 ×3; J2270 ×3; J1650; J1170; J0696 ×3; J7120 ×3; J7620 ×3

== ENCOUNTER → 2019-04-01 | Outpatient (CLI) | payer OTHER ==
--- NOTE | 2019-04-01 13:41 | RADIOLOGY REPORT (SQ) ---
EXAM DESCRIPTION: CHEST 2 VIEWS COMPLETED DATE/TIME: 04/01/2019 1:32 pm REASON FOR STUDY: J18.9 PNEUMONIA, UNSPECIFIED ORGANISM COMPARISON: 03/02/2027 EXAM PARAMETERS: NUMBER OF VIEWS: two views TECHNIQUE: Digital Frontal and Lateral radiographic views of the chest acquired. RADIATION DOSE: NA LIMITATIONS: none FINDINGS: LUNGS AND PLEURA: No opacities, masses or pneumothorax. No pleural effusion. MEDIASTINUM AND HILAR STRUCTURES: No masses or contour abnormalities. HEART AND VASCULAR STRUCTURES: Heart normal size. No evidence for failure. BONES: No acute findings. HARDWARE: None in the chest. OTHER: No other significant finding. IMPRESSION: Previously described right upper lobe infiltrate has resolved. No acute findings in the chest. TECHNICAL DOCUMENTATION: JOB ID: [id number] 2010 [employer]- All Rights Reserved Reading location - IP/workstation name: [email or web address]
== END ==
LOC: RAD 13:08
PROVIDERS: ATTEND Registered Nurse
DX: J18.9 Pneumonia, unspecified organism (principal)
CPT/HCPCS: 71046

== ENCOUNTER 2019-04-13 11:21 | Inpatient (IN) | payer OTHER ==
[2019-04-13] MEDS ORDERED: ACETAMINOPHEN 325 MG TABLET PO ONE (11:49)
--- NOTE | 2019-04-13 11:51 | ER Document Report ---
ED Medical Screen (RME) - General Chief Complaint: Fever Stated Complaint: SHORT OF BREATH,FEVER,HEADACHE Time Seen by Provider: 04/13/19 11:42 Primary Care Provider: KANDY GOODWIN NP [Primary Care Provider] - Follow up as needed Notes: Patient is a 43-year-old female with a history of anemia, migraines, psoriatic arthritis who presents emergency department with a chief complaint of shortness of breath. Patient reports waking up today with shortness of breath, chest pain that is located underneath the right breast that radiates into her right back, body aches, back pain and chills. Patient reports she did receive influenza vaccine this year. Patient reports she is currently being seen by Dr. Espinoza as she has had pneumonia 7 times since January 2018 with her last diagnosis about 2 months ago. Patient reports she is scheduled to have a barium swallow this month as they are thinking maybe she is aspirating due to her acid reflux. Patient reports that she feels like she may have pneumonia at this time. TRAVEL OUTSIDE OF THE [place] IN LAST 30 DAYS: No - Related Data Allergies/Adverse Reactions: aspirin Allergy (Verified 04/13/19 11:43) Hives shellfish derived Allergy (Verified 04/13/19 11:43) Past Medical History Pulmonary Medical History: Reports: Hx Asthma, Hx Bronchitis, Hx Pneumonia Renal/ Medical History: Denies: Hx Peritoneal Dialysis GI Medical History: Reports: Hx Gastroesophageal Reflux Disease Musculoskeltal Medical History: Reports Hx Arthritis Past Surgical History: Reports: Hx Bowel Surgery - gastirc bypass - Immunizations Hx Diphtheria, Pertussis, Tetanus Vaccination: Yes Physical Exam - Vital signs Vitals: Temp Pulse Resp BP Pulse Ox 99.9 F 110 H 20 129/78 H 95 04/13/19 11:26 04/13/19 11:26 04/13/19 11:26 04/13/19 11:26 04/13/19 11:26 - Respiratory Respiratory status: No respiratory distress Chest status: Nontender Breath sounds: Normal Chest palpation: Normal Course - Re-evaluation Re-evalutation: 04/13/19 11:51 I have greeted and performed a rapid initial assessment of this patient. A comprehensive ED assessment and evaluation of the patient, analysis of test results and completion of the medical decision making process will be conducted by additional ED providers. - Vital Signs Vital signs: Temp Pulse Resp BP Pulse Ox 99.9 F 110 H 20 129/78 H 95 04/13/19 11:26 04/13/19 11:26 04/13/19 11:26 04/13/19 11:26 04/13/19 11:26 Doctor's Discharge - Discharge Referrals: KANDY GOODWIN NP [Primary Care Provider] - Follow up as needed
[2019-04-13 12:20] LABS: HEMATOCRIT 41.7 % (36.0-47.0); HEMOGLOBIN 13.6 g/dL (12.0-15.5); MEAN CORPUSCULAR HEMOGLOBIN 27.8 pg (27.0-33.4); MEAN CORPUSCULAR HGB CONC 32.7 g/dL (32.0-36.0); MEAN CORPUSCULAR VOLUME 85 fl (80-97); PLATELET COUNT 373 10^3/uL (150-450); RED BLOOD COUNT 4.91 10^6/uL (3.72-5.28); RED CELL DISTRIBUTION WIDTH 14.8 % (11.5-14.0); WHITE BLOOD COUNT 26.3 10^3/uL (4.0-10.5)
[2019-04-13 12:30] LABS: A TYPE INFLUENZA AG NEGATIVE (NEGATIVE); ALBUMIN 3.5 g/dL (3.5-5.0); ALKALINE PHOSPHATASE 110 U/L (38-126); ANION GAP 10 (5-19); ASPARTATE AMINO TRANSFERASE 19 U/L (14-36); B INFLUENZA AG NEGATIVE (NEGATIVE); BILIRUBIN,DIRECT 0.3 mg/dL (0.0-0.4); BILIRUBIN,TOTAL 0.5 mg/dL (0.2-1.3); BLOOD UREA NITROGEN 7 mg/dL (7-20); CALCIUM 8.5 mg/dL (8.4-10.2); CARBON DIOXIDE 22 mmol/L (22-30); CHLORIDE 109 mmol/L (98-107); GLUCOSE 102 mg/dL (75-110); TOTAL PROTEIN 6.6 g/dL (6.3-8.2)
--- NOTE | 2019-04-13 12:33 | RADIOLOGY REPORT (SQ) ---
EXAM DESCRIPTION: CHEST 2 VIEWS COMPLETED DATE/TIME: 04/13/2019 12:15 pm REASON FOR STUDY: Chest pain, sob COMPARISON: None. EXAM PARAMETERS: NUMBER OF VIEWS: Two views. TECHNIQUE: PA and lateral views of the chest were obtained.. RADIATION DOSE: NA LIMITATIONS: none FINDINGS: LUNGS AND PLEURA: Asymmetric parenchymal opacities in the right lower lobe. There is no s izable pleural effusion or pneumothorax. MEDIASTINUM AND HILAR STRUCTURES: No mediastinal or hilar contour abnormality. HEART AND VASCULAR STRUCTURES: The cardiac silhouette and pulmonary vasculature are within normal torres its. BONES: No acute findings. HARDWARE: Cholecystectomy clips. OTHER: No other finding. IMPRESSION: Asymmetric parenchymal opacities in the right lower lobe. Clinical correlation for sign s and symptoms of a pneumonia is recommended. TECHNICAL DOCUMENTATION: JOB ID: [id number] 2010 [employer]- All Rights Reserved Reading location - IP/workstation name: [email or web address]
[2019-04-13 12:44] LABS: ABSOLUTE LYMPHOCYTES# (MANUAL) 0.8 10^3/uL (0.5-4.7); ABSOLUTE MONOCYTES # (MANUAL) 2.4 10^3/uL (0.1-1.4); BASOPHILS % (MANUAL) 0 % (0-2); EOSINOPHILS % (MANUAL) 0 % (0-6); LYMPHOCYTES % (MANUAL) 3 % (13-45); MONOCYTES % (MANUAL) 9 % (3-13); SEGMENTED NEUTROPHILS % (MAN) 88 % (42-78); TOTAL CELLS COUNTED 100
[2019-04-13 12:46] LABS: ANISOCYTOSIS SLIGHT; PLATELET COMMENT ADEQUATE; PLATELET LARGE PRESENT; TOXIC VACUOLATION PRESENT
[2019-04-13] MEDS ORDERED: NORMAL SALINE 1000 ML 1,000 ML IV ONE (12:51)
--- NOTE | 2019-04-13 12:54 | ER Document Report ---
ED General - General Chief Complaint: Flu Symptoms Stated Complaint: SHORT OF BREATH,FEVER,HEADACHE Time Seen by Provider: 04/13/19 11:42 Primary Care Provider: KANDY GOODWIN NP [Primary Care Provider] - Follow up as needed Notes: HPI: 43-year-old female that presents today with a fever at home of 101 with some shortness of breath and some anterior chest discomfort with some radiation to the back. Patient was provided Tylenol. She denies any runny nose, congestion, or sore throat. She did injure her right foot without any operative repair on March 28. She is walking boot in place. Patient was admitted March 04 for pneumonia. Patient supposedly has had multiple episodes of pneumonia over the last 14 months. Patient is set up to see the hydroelectric plant mechanical engineer Dr. Espinoza as an outpatient. ROS: See HPI All other review of systems reviewed and otherwise negative Reviewed vital signs and nursing note as charted by RN. PHYSICAL EXAM: CONSTITUTIONAL: Alert and oriented and responds appropriately to questions. Well-appearing; well-nourished HEAD: Normocephalic; atraumatic EYES: PERRL; Conjunctivae clear, sclerae non-icteric ENT: Normal nose; minimal bilateral nonpurulent rhinorrhea; moist mucous membranes; pharynx without lesions noted NECK: Supple without meningismus; non-tender; no cervical lymphadenopathy, no masses CARD: Regular rate and rhythm; no murmurs; symmetric distal pulses RESP: Normal chest excursion without splinting or tachypnea; breath sounds clear and equal bilaterally; no wheezes, no rhonchi, no rales ABD/GI: Normal bowel sounds; elevated BMI; soft, non-tender; no palpable organomegaly or masses BACK: The back appears normal and is non-tender to palpation EXT: Patient's right foot is in a walking boot; normal ROM in all joints otherwise; non-tender to palpation; no edema or calf pain SKIN: No acute lesions noted NEURO: CN 2-12 intact; 5/5 bilateral upper and lower extremity strength with sensation intact to light touch PSYCH: The patient's mood and manner are appropriate. Grooming and personal hygiene are appropriate. TRAVEL OUTSIDE OF THE [place] IN LAST 30 DAYS: No - Related Data Allergies/Adverse Reactions: aspirin Allergy (Verified 04/13/19 11:43) Hives shellfish derived Allergy (Verified 04/13/19 11:43) Home Medications: dilauded. amytriptiline. topamax. bendryl. B12. Zomig Past Medical History - Social History Smoking Status: Never Smoker Frequency of alcohol use: Rare Drug Abuse: None Family History: CAD, DM, Hypertension Patient has suicidal ideation: No Patient has homicidal ideation: No Pulmonary Medical History: Reports: Hx Asthma, Hx Bronchitis, Hx Pneumonia Renal/ Medical History: Denies: Hx Peritoneal Dialysis GI Medical History: Reports: Hx Gastroesophageal Reflux Disease Musculoskeletal Medical History: Reports Hx Arthritis Past Surgical History: Reports: Hx Bowel Surgery - gastirc bypass 2008 - Immunizations Hx Diphtheria, Pertussis, Tetanus Vaccination: Yes Hx Pneumococcal Vaccination: 02/12/08 Physical Exam - Vital signs Vitals: Temp Pulse Resp BP Pulse Ox 99.9 F 110 H 20 129/78 H 95 04/13/19 11:26 04/13/19 11:26 04/13/19 11:26 04/13/19 11:26 04/13/19 11:26 Course - Re-evaluation Re-evalutation: 04/13/19 12:54 Given the history and physical with the patient's previous history we will obtain an x-ray of the chest, basic labs, fluids, antipyretics, and reassess. P atient is currently chest pain-free. No runny nose or congestion subjectively. Temperature of 101 at home. Blood cultures have been sent and awaiting x-ray results. Given the constellation of symptoms including the temperature of 101, I do believe pulmonary embolism, ACS, and dissection to be unlikely. EKG shows a rate of 94, normal sinus rhythm, normal axis, no ST elevation or depression. 04/13/19 13:17 White count and x-ray as recorded. I have called and spoken directly to the hydroelectric plant mechanical engineer. He states he is happy to follow the patient here in the emergency department. He does recommend broad-spectrum antibiotics currently including vancomycin and Zosyn. Blood cultures have been sent. - Vital Signs Vital signs: Temp Pulse Resp BP Pulse Ox 99.9 F 110 H 20 129/78 H 95 04/13/19 11:26 04/13/19 11:26 04/13/19 11:26 04/13/19 11:26 04/13/19 11:26 - Laboratory Result Diagrams: 04/13/19 12:04 04/13/19 12:04 Laboratory results interpreted by me: 04/13/19 04/13/19 12:04 12:04 WBC 26.3 H RDW 14.8 H Seg Neuts % (Manual) 88 H Lymphocytes % (Manual) 3 L Abs Neuts (Manual) 23.1 H Abs Monocytes (Manual) 2.4 H Chloride 109 H Discharge - Discharge Clinical Impression: Right lower lobe pneumonia Qualifiers: Pneumonia type: due to unspecified organism Qualified Code(s): J18.9 - Pneumonia, unspecified organism Condition: Fair Disposition: ADMITTED INPATIENT Referrals: KANDY GOODWIN NP [Primary Care Provider] - Follow up as needed
--- NOTE | 2019-04-13 13:09 | EKG REPORT ---
SEVERITY:- NORMAL ECG - SINUS RHYTHM : Confirmed by: Jorge Dennis MD 13-Apr-2019 13:08:49
[2019-04-13] MEDS ORDERED: VANCOMYCIN HCL INJ 1000 MG VIAL IV ONE (13:18)
[2019-04-13] MEDS ORDERED: PIPERACILLIN/TAZOBACTAM 3.375 GM VIAL IV ONE (13:18)
[2019-04-13] MEDS ORDERED: PROMETHAZINE HCL INJ 25 MG/1 ML VIAL IV PRN (13:48)
[2019-04-13] MEDS ORDERED: ACETAMINOPHEN 325 MG TABLET PO PRN (13:48)
[2019-04-13] MEDS ORDERED: ONDANSETRON HCL INJ/PF 4 MG/2 ML SDV IV PRN (13:48)
[2019-04-13] MEDS ORDERED: OXYCODONE-ACETAMINOPHEN 5-325 MG TABLET PO PRN (13:48)
[2019-04-13] MEDS ORDERED: METOPROLOL TARTRATE PF/INJ 5 MG/5 ML SDV IV PRN (13:57)
[2019-04-13] MEDS ORDERED: HYDRALAZINE HCL INJ/PF 20 MG/1 ML SDV IV PRN (13:57)
[2019-04-13] MEDS ORDERED: GUAIFENESIN/CODEINE PHOS 100-10 MG/ 5 ML UDC PO PRN (13:57)
[2019-04-13] MEDS ORDERED: VANCOMYCIN HCL 0 MG in DEXTROSE 5%-WATER 250 ML IV NR (14:00)
--- NOTE | 2019-04-13 14:34 | PDOC H&P ---
History of Present Illness Admission Date/PCP: KANDY GOODWIN NP History of Present Illness: HIRAL ADLER is a 43 year old female past medical history of intermittent asthma on rescue inhaler, morbid obesity status post gastric bypass, hypertension, chronic pain with opiate dependence, migraine headaches, psoriatic arthritis presenting to ED with acute shortness, chest pain, fever, chills. Chest pain is sharp, 10/10, right-sided, radiating to back, no alleviating factors identified, worse with movement, associated with severe generalized headache, nausea, fever, chills, shortness of breath Denies any cough, denies any sick contacts or recent travel, nocturnal cough, postnasal drip, aspiration metallic taste in the mouth, abdominal pain, nausea, diarrhea, constipation or any urinary symptoms. Patient has had multiple pneumonias in the course of last several months, has been evaluated by pulmonology the past, only PFT and chest x-ray has been done so far. Patient is scheduled to have modified barium swallow on of this month, has been evaluated by Dr. Espinoza as outpatient. In ED he was found to have significant leukocytosis with chest x-ray with right lower lobe infiltrates, hospitalist was consulted for admission. Past Medical History Pulmonary Medical History: Reports: Asthma, Bronchitis, Pneumonia GI Medical History: Reports: Gastroesophageal Reflux Disease Musculoskeltal Medical History: Reports: Arthritis Hematology: Reports: Anemia Social History Smoking Status: Never Smoker Frequency of Alcohol Use: Rare Hx Recreational Drug Use: No Drugs: None Hx Prescription Drug Abuse: No Family History Family History: CAD, DM, Hypertension Parental Family History Reviewed: Yes Children Family History Reviewed: Yes Sibling(s) Family History Reviewed.: Yes Medication/Allergy Home Medications: Amitriptyline HCl [Elavil 100 mg Tablet] 100 mg PO QHS 10/30/18 Cyanocobalamin (Vitamin B-12) [Vitamin B-12 Inj 1000 Mcg/1 ml Vial] 1,000 mcg IM .MONTHLY 10/30/18 Diphenhydramine HCl [Benadryl] 50 mg PO QHS 10/30/18 Hydromorphone HCl [Dilaudid] 8 mg PO QHS 10/30/18 Topiramate [Topamax 100 mg Tablet] 100 mg PO QHS 10/30/18 Albuterol Sulfate [Proair HFA Inhalation Aerosol 8.5 gm MDI] 2 puff IH Q4HP PRN 03/02/19 Galcanezumab-Gnlm [Emgality Pen] 1 dose SQ .MONTHLY 03/02/19 Ipratropium/Albuterol Sulfate [Duoneb 3 ml Ampul] 3 ml NEB RTQ6HP PRN 03/02/19 Zolmitriptan 2.5 mg PO ASDIR PRN 03/02/19 Cefuroxime Axetil [Ceftin 500 mg Tablet] 1 tab PO BID 10 Days #20 tablet 03/04/19 Docusate Sodium [Colace Udc 100 mg/10 ml Oral Soln] 100 mg PO BID udc 03/04/19 Hydromorphone HCl [Dilaudid 2 mg Tablet] 8 mg PO QHS tablet 03/04/19 Ketorolac Tromethamine [Toradol 10 mg Tablet] 10 mg PO Q6HP PRN 3 Days #12 tablet 03/04/19 Pantoprazole Sodium [Protonix [address] Tablet] 40 mg PO Q6AM 30 Days #30 tablet.dr 03/04/19 Prednisone [Deltasone 10 mg Tablet] 10 mg PO ASDIR 12 Days #42 tablet 03/04/19 Allergies/Adverse Reactions: aspirin Allergy (Verified 04/13/19 11:43) Hives shellfish derived Allergy (Verified 04/13/19 11:43) Review of Systems Review of Systems: as per hpi Physical Exam Vital Signs: Temp Pulse Resp BP Pulse Ox 99.9 F 110 H 20 129/78 H 95 04/13/19 11:26 04/13/19 11:26 04/13/19 11:26 04/13/19 11:26 04/13/19 11:26 Intake & Output 04/12/19 04/13/19 04/14/19 06:59 06:59 06:59 Weight 136 kg General appearance: PRESENT: morbidly obese Head exam: PRESENT: atraumatic, normocephalic Respiratory exam: PRESENT: clear to auscultation marita, crackles - RLL. ABSENT: rales, rhonchi, wheezes Cardiovascular exam: PRESENT: RRR. ABSENT: diastolic murmur, rubs, systolic murmur GI/Abdominal exam: PRESENT: normal bowel sounds, soft. ABSENT: distended, guarding, mass, organolmegaly, rebound, tenderness Neurological exam: PRESENT: alert, awake, oriented to person, oriented to place, oriented to time, oriented to situation, CN II-XII grossly intact. ABSENT: motor sensory deficit Results Laboratory Results: 04/13/19 12:04 04/13/19 12:04 04/13/19 04/13/19 04/13/19 12:04 12:04 13:31 WBC 26.3 H RBC 4.91 Hgb 13.6 Hct 41.7 MCV 85 MCH 27.8 MCHC 32.7 RDW 14.8 H Plt Count 373 Seg Neutrophils % Not Reportable Sodium 140.9 Potassium 4.0 Chloride 109 H Carbon Dioxide 22 Anion Gap 10 BUN 7 Creatinine 0.70 Est GFR ( Amer) > 60 Glucose 102 Lactic Acid 1.3 Calcium 8.5 Total Bilirubin 0.5 AST 19 Alkaline Phosphatase 110 Total Protein 6.6 Albumin 3.5 04/13/19 12:04 Troponin I < 0.012 Impressions: Chest X-Ray 04/13/19 11:49 IMPRESSION: Asymmetric parenchymal opacities in the right lower lobe. Clinical correlation for signs and symptoms of a pneumonia is recommended. Assessment and Plan - Diagnosis (1) Right lower lobe pneumonia Qualifiers: Pneumonia type: due to unspecified organism Qualified Code(s): J18.9 - Pneumonia, unspecified organism Is this a current diagnosis for this admission?: Yes Plan: History of recurrent multifocal pneumonia. Presented with right-sided chest pain, chest x-ray positive for right lower lobe infiltrates. Admit to medical floor, broad-spectrum empiric IV antibiotics, sputum culture, blood culture. Modified barium swallow to rule out aspiration, given history of GERD. Pulmonology consulted. Pending recommendations. (2) Asthma Qualifiers: Asthma severity: mild Asthma persistence: intermittent Asthma complication type: uncomplicated Qualified Code(s): J45.20 - Mild intermittent asthma, uncomplicated Is this a current diagnosis for this admission?: Yes Plan: History of mild intermittent asthma on rescue inhaler. Does not appear to be exacerbated. Restart home meds. Monitor vitals. Outpatient PCP and pulmonology follow-up. (3) Chronic pain syndrome Is this a current diagnosis for this admission?: Yes Plan: Resume home meds. Monitor for falls and respiratory depression. (4) Hx of psoriatic arthritis Is this a current diagnosis for this admission?: Yes Plan: Does not appear to be an acute flare. Restart home meds. Outpatient rheumatology and PCP follow-up. (5) Hx of gastroesophageal reflux (GERD) Is this a current diagnosis for this admission?: Yes Plan: Denies any nocturnal cough melena. History of gastric bypass. Restart home meds. Outpatient PCP and gastroenterology follow-up. (6) Hx of migraine headaches Is this a current diagnosis for this admission?: Yes Plan: Resume home meds. Denies any focal neurological symptoms.
[2019-04-13] MEDS: DOCUSATE SODIUM 100 MG CAPSULE PO SCH (17:31)
[2019-04-13] MEDS: PANTOPRAZOLE SODIUM 40 MG TABLET.DR PO SCH (17:31)
[2019-04-13] MEDS ORDERED: ZOLMITRIPTAN 2.5 MG PO PRN (18:08)
[2019-04-13] MEDS ORDERED: (PENDING PHARMACY ID) (Hydromorphone Hcl [Dilaudid] 8 MG) PO PRN (18:08)
[2019-04-13] MEDS ORDERED: GALCANEZUMAB GNLM SUBCUT SCH (18:15)
[2019-04-13] MEDS ORDERED: HYDROMORPHONE HCL 2 MG TABLET PO PRN (18:16)
[2019-04-13] MEDS: IPRATROPIUM/ALBUTEROL 0.5-2.5 MG/3 ML AMPUL NEB SCH (20:32)
[2019-04-13] MEDS: DIPHENHYDRAMINE HCL 25 MG CAPSULE PO SCH (21:07)
[2019-04-13] MEDS: AMITRIPTYLINE HCL 50 MG TABLET PO SCH (21:07)
[2019-04-13] MEDS: PIPERACILLIN SODIUM/TAZOBACTAM 4.5 GM in NORMAL SALINE 100 ML IV SCH (21:08)
[2019-04-13] MEDS: HYDROMORPHONE HCL 2 MG TABLET PO SCH (21:08)
[2019-04-13] MEDS: TOPIRAMATE 100 MG TABLET PO SCH (21:08)
[2019-04-13] MEDS ORDERED: GUAIFENESIN 600 MG TABLET.SA PO SCH (22:00)
[2019-04-13] MEDS ORDERED: (PENDING PHARMACY ID) (Amitriptyline Hcl [Elavil 100 Mg Tablet] 100 MG) PO SCH (22:00)
[2019-04-14] MEDS: PIPERACILLIN SODIUM/TAZOBACTAM 4.5 GM in NORMAL SALINE 100 ML IV SCH ×4 (05:13→21:35)
[2019-04-14 05:18] LABS: ABSOLUTE EOSINOPHILS # (AUTO) 0.2 10^3/uL (0.0-0.6); ABSOLUTE LYMPHOCYTES (AUTO) 1.9 10^3/uL (0.5-4.7); ABSOLUTE MONOCYTES (AUTO) 0.7 10^3/uL (0.1-1.4); ABSOLUTE NEUT (AUTO) 6.1 10^3/uL (1.7-8.2); BASOPHILS % (AUTO) 0.5 % (0-2); EOSINOPHILS % (AUTO) 2.3 % (0-6); HEMATOCRIT 36.6 % (36.0-47.0); HEMOGLOBIN 12.2 g/dL (12.0-15.5); LYMPHOCYTES % (AUTO) 21.5 % (13-45); MEAN CORPUSCULAR HEMOGLOBIN 28.2 pg (27.0-33.4); MEAN CORPUSCULAR HGB CONC 33.3 g/dL (32.0-36.0); MEAN CORPUSCULAR VOLUME 85 fl (80-97); MONOCYTES % (AUTO) 8.1 % (3-13); PLATELET COUNT 332 10^3/uL (150-450); RED BLOOD COUNT 4.32 10^6/uL (3.72-5.28); RED CELL DISTRIBUTION WIDTH 15.1 % (11.5-14.0); SEGMENTED NEUTROPHILS % (AUTO) 67.6 % (42-78); TOTAL CELLS COUNTED % (AUTO) 100 %
[2019-04-14 05:42] LABS: ALBUMIN 2.8 g/dL (3.5-5.0); ALKALINE PHOSPHATASE 85 U/L (38-126); ANION GAP 8 (5-19); ASPARTATE AMINO TRANSFERASE 16 U/L (14-36); BILIRUBIN,DIRECT 0.3 mg/dL (0.0-0.4); BILIRUBIN,TOTAL 0.3 mg/dL (0.2-1.3); BLOOD UREA NITROGEN 11 mg/dL (7-20); CALCIUM 8.1 mg/dL (8.4-10.2); CARBON DIOXIDE 21 mmol/L (22-30); CHLORIDE 111 mmol/L (98-107); GLUCOSE 79 mg/dL (75-110); POTASSIUM 4.2 mmol/L (3.6-5.0); TOTAL PROTEIN 5.6 g/dL (6.3-8.2)
[2019-04-14] MEDS: VANCOMYCIN HCL 1,000 MG in DEXTROSE 5%-WATER 250 ML IV SCH ×3 (05:51→18:55)
[2019-04-14] MEDS: PANTOPRAZOLE SODIUM 40 MG TABLET.DR PO SCH ×2 (05:57→16:37)
[2019-04-14] MEDS: IPRATROPIUM/ALBUTEROL 0.5-2.5 MG/3 ML AMPUL NEB SCH ×3 (08:45→20:42)
[2019-04-14] MEDS ORDERED: MAG HYDROX/AL HYDROX/SIMETH SUSP 30 ML UDCUP PO PRN (09:26)
--- NOTE | 2019-04-14 09:26 | PDOC PROGRESS REPORT ---
Subjective Progress Note for:: 04/14/19 Subjective:: HIRAL ADLER is a 43 year old female past medical history of intermittent asthma on rescue inhaler, morbid obesity status post gastric bypass, hypertension, chronic pain with opiate dependence, migraine headaches, psoriatic arthritis presenting to ED with acute shortness, chest pain, fever, chills. Chest pain is sharp, 10/10, right-sided, radiating to back, no alleviating factors identified, worse with movement, associated with severe generalized headache, nausea, fever, chills, shortness of breath Denies any cough, denies any sick contacts or recent travel, nocturnal cough, postnasal drip, aspiration metallic taste in the mouth, abdominal pain, nausea, diarrhea, constipation or any urinary symptoms. Patient has had multiple pneumonias in the course of last several months, has been evaluated by pulmonology the past, only PFT and chest x-ray has been done so far. Patient is scheduled to have modified barium swallow on of this month, has been evaluated by Dr. Espinoza as outpatient. In ED he was found to have significant leukocytosis with chest x-ray with right lower lobe infiltrates, hospitalist was consulted for admission. 04/14/2019. No acute events overnight. Currently receiving aponeurosis, chest pain has resolved, denies any fever, chills, nausea, vomiting, diarrhea, constipation or any urinary symptoms. Reason For Visit: MULTIFOCAL PNEUMONIA Physical Exam Vital Signs: Temp Pulse Resp BP Pulse Ox 98.2 F 92 18 122/60 96 04/14/19 08:35 04/14/19 08:47 04/14/19 08:47 04/14/19 08:35 04/14/19 08:47 Intake & Output 04/13/19 04/14/19 04/15/19 06:59 06:59 06:59 Intake Total 1562 Balance 1562 Weight 143.3 kg General appearance: PRESENT: morbidly obese Head exam: PRESENT: atraumatic, normocephalic Respiratory exam: PRESENT: clear to auscultation marita. ABSENT: rales, rhonchi, wheezes Cardiovascular exam: PRESENT: RRR. ABSENT: diastolic murmur, rubs, systolic murmur GI/Abdominal exam: PRESENT: normal bowel sounds, soft. ABSENT: distended, guarding, mass, organolmegaly, rebound, tenderness Extremities exam: PRESENT: full ROM. ABSENT: calf tenderness, clubbing, pedal edema Neurological exam: PRESENT: alert, awake, oriented to person, oriented to place, oriented to time, oriented to situation, CN II-XII grossly intact. ABSENT: motor sensory deficit Skin exam: PRESENT: dry, intact, warm. ABSENT: cyanosis, rash Results Laboratory Results: 04/14/19 04:28 04/14/19 04:28 04/13/19 04/13/19 04/13/19 12:04 12:04 13:31 WBC 26.3 H RBC 4.91 Hgb 13.6 Hct 41.7 MCV 85 MCH 27.8 MCHC 32.7 RDW 14.8 H Plt Count 373 Seg Neutrophils % Not Reportable Sodium 140.9 Potassium 4.0 Chloride 109 H Carbon Dioxide 22 Anion Gap 10 BUN 7 Creatinine 0.70 Est GFR ( Amer) > 60 Glucose 102 Lactic Acid 1.3 Calcium 8.5 Total Bilirubin 0.5 AST 19 Alkaline Phosphatase 110 Total Protein 6.6 Albumin 3.5 04/14/19 04/14/19 04:28 04:28 WBC 9.0 RBC 4.32 Hgb 12.2 Hct 36.6 MCV 85 MCH 28.2 MCHC 33.3 RDW 15.1 H Plt Count 332 Seg Neutrophils % 67.6 Sodium 139.7 Potassium 4.2 Chloride 111 H Carbon Dioxide 21 L Anion Gap 8 BUN 11 Creatinine 0.81 Est GFR ( Amer) > 60 Glucose 79 Lactic Acid Calcium 8.1 L Total Bilirubin 0.3 AST 16 Alkaline Phosphatase 85 Total Protein 5.6 L Albumin 2.8 L 04/13/19 12:04 Troponin I < 0.012 Impressions: Chest X-Ray 04/13/19 11:49 IMPRESSION: Asymmetric parenchymal opacities in the right lower lobe. Clinical correlation for signs and symptoms of a pneumonia is recommended. Assessment and Plan - Diagnosis (1) Right lower lobe pneumonia Qualifiers: Pneumonia type: due to unspecified organism Qualified Code(s): J18.9 - Pneumonia, unspecified organism Is this a current diagnosis for this admission?: Yes Plan: Afebrile. WBC WNL. History of recurrent multifocal pneumonia. Presented with right-sided chest pain, chest x-ray positive for right lower lobe infiltrates. Admit to medical floor, broad-spectrum empiric IV antibiotics, sputum culture, blood culture. Modified barium swallow to rule out aspiration, given history of GERD. Pulmonology consulted. Pending recommendations. (2) Asthma Qualifiers: Asthma severity: mild Asthma persistence: intermittent Asthma complication type: uncomplicated Qualified Code(s): J45.20 - Mild intermittent asthma, uncomplicated Is this a current diagnosis for this admission?: Yes Plan: History of mild intermittent asthma on rescue inhaler. Does not appear to be exacerbated. Restart home meds. Monitor vitals. Outpatient PCP and pulmonology follow-up. (3) Chronic pain syndrome Is this a current diagnosis for this admission?: Yes Plan: Resume home meds. Monitor for falls and respiratory depression. (4) Hx of psoriatic arthritis Is this a current diagnosis for this admission?: Yes Plan: Does not appear to be an acute flare. Restart home meds. Outpatient rheumatology and PCP follow-up. (5) Hx of gastroesophageal reflux (GERD) Is this a current diagnosis for this admission?: Yes Plan: Denies any nocturnal cough melena. History of gastric bypass. Restart home meds. Outpatient PCP and gastroenterology follow-up. (6) Hx of migraine headaches Is this a current diagnosis for this admission?: Yes Plan: Resume home meds. Denies any focal neurological symptoms.
[2019-04-14] MEDS: DOCUSATE SODIUM 100 MG CAPSULE PO SCH ×2 (09:54→19:01)
[2019-04-14] MEDS: ENOXAPARIN SODIUM INJ 40 MG/0.4 ML DISP.SYRIN SUBCUT SCH (09:54)
--- NOTE | 2019-04-14 09:59 | ST Inp Modified Barium Swallow ---
Medical Diagnosis - Medical Diagnoses Medical Diagnosis Description & ICD-10 Code(s): right lower lobe pneumonia ST Inpatient MBS - General Date: 04/14/19 - History -: Medical - per EMR: patient admitted with shortness of breath, chest pain, fever and chills. Prior medical history includes asthma, morbid obesity status post gastric bypass, hypertension, chronic pain, migraine, psoriatic arthritis, recurrent pneumonia. Recent chest x-ray indicates right lower lobe infiltrates. Patient had been scheduled for an outpatient MBSS on 04/23/19, referred by Dr. Espinoza's office. Hospitalist currently wanting to rule out aspiration as contributing to recurrent pneumonia. Medications: Medications Reviewed Allergies: Refer to medical record - Subjective Current Nutritional Means: PO Current PO Diet: Regular Current Symptoms: Pneumonia Pain: no signs/symptoms of pain - Objective Assessment: Upright, Left Lateral - Food Trials Food Trials Used: Thin liquids, Pureed, Regular The Patient: Was Able to Self Feed - Assessment Labial Function: Within Normal Limits Lingual Function: Within Normal Limits Mandibular Function: Within Normal Limits Velo-Pharyngeal Function: Unremarkable Laryngeal Function: clear voicing - Pharyngeal Stage Initiation of Pharyngeal Stage: Normal Decreased Laryngeal Elevation: No Reduced Velo-Pharyngeal Closure: no Reduced Pressure Generation: No Reduced Tongue Base Retraction: No Pre-Swallowing Pooling in Valleculae: None Pre-Swallowing Pooling in Pyriforms: None Reduced Thyro-Hyiod Approximation: No Reduced Epiglottic Excursion: No Reduced Pharyngeal Peristalsis: No Post Swallow Residuals in Valleculae: None Post Swallow Residuals in Pyriforms: None Post Swallow Residuals: no residuals - Impression/Summary Laryngeal Penetration: No Tracheal Aspiration: no Patient Presents With: Normal swallow at eval Risk of Aspiration: Minimal - Recommendations Solid Diet Recommendations: Regular Liquid Diet Recommendations: Thin - Time Total Time: 30 Total Timed Minutes: 30
--- NOTE | 2019-04-14 14:12 | CDI QUERY ---
CDI Query CDI Review: Dear Provider: To better reflect your patients severity of illness, morbidity, and resource utilization Please specify and document in the Progress Notes and Discharge Summary if you are monitoring / treating / evaluating any of the following conditions: Query Clinical indicators When known (or suspected) please include in your documentation the type of pneumonia: Aspiration pneumonia Gram negative pneumonia Gram positive pneumonia Viral pneumonia Unable to determine Other Right lower lobe pneumonia Qualifiers: Pneumonia type: due to unspecified organism Qualified Code(s): J18.9 - Pneumonia, unspecified organism Is this a current diagnosis for this admission?: Yes Plan: History of recurrent multifocal pneumonia. Presented with right-sided chest pain, chest x-ray positive for right lower lobe infiltrates. Admit to medical floor, broad-spectrum empiric IV antibiotics, sputum culture, blood culture. The terms probable, suspected, likely, possible or still to be ruled out may be used if you are unable to determine the exact nature of a condition. Thank you, Clinical Documentation Physician Advisors MARYAN Gutierrez RN, BSN RN Office [phone] Office [phone]
--- NOTE | 2019-04-14 14:50 | RADIOLOGY REPORT (SQ) ---
EXAM DESCRIPTION: NELLYIE SWALLOW COMPLETED DATE/TIME: 04/14/2019 9:30 am REASON FOR STUDY: recurrent pneumonia, r/o aspiration right lower lobe pneumonia, gastroesophageal r eflux disease, dysphagia morbid obesity COMPARISON: None. TECHNIQUE: Videofluoroscopic swallowing examination was performed in conjunction with speech patholo gy. Videofluoroscopic imaging was obtained and reviewed and these are the findings: RADIATION DOSE: 53 seconds of fluoroscopy was used 1 images saved to PACS. LIMITATIONS: None FINDINGS: The patient was brought into the fluoro room and placed upright on a modified barium swall ow chair. The patient was then given multiple consistencies mixed with barium to swallow under live fluoroscopic video guidance. According to the Speech Pathologist there was no penetration or aspirat ion. IMPRESSION: NO EVIDENCE OF PENETRATION OR ASPIRATION. PLEASE SEE SPEECH PATHOLOGIST REPORT FOR OTHER FINDINGS AND RECOMMENDATIONS. COMMENT: Quality ID [id number]: Final reports for procedures using fluoroscopy that document radiation exp osure indices, or exposure time and number of fluorographic images (if radiation exposure indices are not available) TECHNICAL DOCUMENTATION: JOB ID: [id number] 2010 [employer]- All Rights Reserved Reading location - IP/workstation name: [email or web address] [id number]
[2019-04-14 18:14] LABS: VANCOMYCIN,TROUGH 19.3 ug/mL (5.0-20.0)
[2019-04-14] MEDS: TOPIRAMATE 100 MG TABLET PO SCH (21:34)
[2019-04-14] MEDS: AMITRIPTYLINE HCL 50 MG TABLET PO SCH (21:34)
[2019-04-14] MEDS: HYDROMORPHONE HCL 2 MG TABLET PO SCH (21:34)
[2019-04-14] MEDS: DIPHENHYDRAMINE HCL 25 MG CAPSULE PO SCH (21:34)
[2019-04-15] MEDS: PANTOPRAZOLE SODIUM 40 MG TABLET.DR PO SCH (06:06)
[2019-04-15] MEDS: PIPERACILLIN SODIUM/TAZOBACTAM 4.5 GM in NORMAL SALINE 100 ML IV SCH ×3 (06:06→14:45)
[2019-04-15] MEDS: VANCOMYCIN HCL 1,000 MG in DEXTROSE 5%-WATER 250 ML IV SCH ×2 (06:20→10:26)
[2019-04-15] MEDS: IPRATROPIUM/ALBUTEROL 0.5-2.5 MG/3 ML AMPUL NEB SCH ×2 (08:32→14:02)
[2019-04-15] MEDS: ENOXAPARIN SODIUM INJ 40 MG/0.4 ML DISP.SYRIN SUBCUT SCH (10:26)
[2019-04-15] MEDS: DOCUSATE SODIUM 100 MG CAPSULE PO SCH (10:26)
[2019-04-15 10:47] VITALS: BP 92/47
--- NOTE | 2019-04-19 14:18 | PDOC DISCHARGE SUMMARY ---
Impression - Admit/DC Date/PCP Admission Date/Primary Care Provider: 04/13/19 14:46 KANDY GOODWIN NP Discharge Date: 04/19/19 - Discharge Diagnosis (1) Right lower lobe pneumonia Is this a current diagnosis for this admission?: Yes (2) Asthma Is this a current diagnosis for this admission?: Yes (3) Chronic pain syndrome Is this a current diagnosis for this admission?: Yes (4) Hx of psoriatic arthritis Is this a current diagnosis for this admission?: Yes (5) Hx of gastroesophageal reflux (GERD) Is this a current diagnosis for this admission?: Yes (6) Hx of migraine headaches Is this a current diagnosis for this admission?: Yes - Additional Information Discharge Diet: As Tolerated Discharge Activity: Activity As Tolerated, Balance Activity w/Rest Referrals: KANDY GOODWIN NP [Primary Care Provider] - 04/28/19 9:30 am Prescriptions: Amoxicillin/Potassium Clav [Augmentin Xr 1,000-62.5 Tab] 2 each PO BID 5 Days #10 tab.er.12h Fluconazole [Diflucan 100 mg Tablet] 100 mg PO DAILY 3 Days #3 tablet Azithromycin [Zithromax 250 mg Tablet] 250 mg PO ASDIR PRN 4 Days #6 tablet PRN Reason: Home Medications: Amitriptyline HCl [Elavil 100 mg Tablet] 100 mg PO QHS 10/30/18 Cyanocobalamin (Vitamin B-12) [Vitamin B-12 Inj 1000 Mcg/1 ml Vial] 1,000 mcg IM .MONTHLY 10/30/18 Diphenhydramine HCl [Benadryl] 50 mg PO QHS 10/30/18 Hydromorphone HCl [Dilaudid] 8 mg PO DAILYP PRN 10/30/18 Topiramate [Topamax 100 mg Tablet] 100 mg PO QHS 10/30/18 Albuterol Sulfate [Proair HFA Inhalation Aerosol 8.5 gm MDI] 2 puff IH Q4HP PRN 03/02/19 Galcanezumab-Gnlm [Emgality Pen] 1 dose SQ .MONTHLY 03/02/19 Zolmitriptan 2.5 mg PO ASDIR PRN 03/02/19 Hydromorphone HCl [Dilaudid 2 mg Tablet] 8 mg PO QHS tablet 03/04/19 Amoxicillin/Potassium Clav [Augmentin Xr 1,000-62.5 Tab] 2 each PO BID 5 Days #10 tab.er.12h 04/15/19 Azithromycin [Zithromax 250 mg Tablet] 250 mg PO ASDIR PRN 4 Days #6 tablet 04/15/19 Fluconazole [Diflucan 100 mg Tablet] 100 mg PO DAILY 3 Days #3 tablet 04/15/19 History of Present Illiness History of Present Illness: HIRAL ADLER is a 43 year old female past medical history of intermittent asthma on rescue inhaler, morbid obesity status post gastric bypass, hypertension, chronic pain with opiate dependence, migraine headaches, psoriatic arthritis presenting to ED with acute shortness, chest pain, fever, chills. Chest pain is sharp, 10/10, right-sided, radiating to back, no alleviating factors identified, worse with movement, associated with severe generalized headache, nausea, fever, chills, shortness of breath Denies any cough, denies any sick contacts or recent travel, nocturnal cough, postnasal drip, aspiration metallic taste in the mouth, abdominal pain, nausea, diarrhea, constipation or any urinary symptoms. Patient has had multiple pneumonias in the course of last several months, has been evaluated by pulmonology the past, only PFT and chest x-ray has been done so far. Patient is scheduled to have modified barium swallow on of this month, has been evaluated by Dr. Espinoza as outpatient. In ED he was found to have significant leukocytosis with chest x-ray with right lower lobe infiltrates, hospitalist was consulted for admission. Hospital Course Hospital Course: (1) Right lower lobe pneumonia Community-acquired pneumonia likely due to gram-positive cocci/rods including Streptococcus pneumonia. Afebrile. WBC WNL at the time of discharge. Blood cultures remained negative. History of recurrent multifocal pneumonia. Presented with right-sided chest pain, chest x-ray positive for right lower lobe infiltrates. Admitted to floor, started on on broad-spectrum empiric IV antibiotics. Modified barium swallow to rule out aspiration, given history of GERD, however it was negative for any aspiration. Pulmonology was consulted but unfortunately no consult note in place at the time of discharge. Patient has an appointment with his computer hardware technician Dr. Espinoza on 04/23/2019. Given history of immunosuppression and recurrent pneumonia patient was discharged home azithromycin Z-Deonte pack and Augmentin XR twice daily for 5 days. (2) Asthma History of mild intermittent asthma on rescue inhaler. Did not appear to be exacerbated. Restarted on home meds. Outpatient pulmonology and PCP follow-up recommended. (3) Chronic pain syndrome Resumed home meds. Monitor for falls and respiratory depression. (4) Hx of psoriatic arthritis Does not appear to be an acute flare. Restarted home meds. Outpatient rheumatology and PCP follow-up. (5) Hx of gastroesophageal reflux (GERD) Denied any nocturnal cough or melena. History of gastric bypass. Restarted home meds. Outpatient PCP and gastroenterology follow-up. (6) Hx of migraine headaches Resumed home meds. Denies any focal neurological symptoms. Physical Exam Vital Signs: Temp Pulse Resp BP Pulse Ox 97.9 F 90 16 92/47 L 98 04/15/19 14:16 04/15/19 14:16 04/15/19 14:16 04/15/19 14:16 04/15/19 14:16 General appearance: PRESENT: morbidly obese Head exam: PRESENT: atraumatic, normocephalic Respiratory exam: PRESENT: clear to auscultation marita. ABSENT: rales, rhonchi, wheezes Cardiovascular exam: PRESENT: RRR. ABSENT: diastolic murmur, rubs, systolic murmur GI/Abdominal exam: PRESENT: normal bowel sounds, soft. ABSENT: distended, guarding, mass, organolmegaly, rebound, tenderness Neurological exam: PRESENT: alert, awake, oriented to person, oriented to place, oriented to time, oriented to situation, CN II-XII grossly intact. ABSENT: motor sensory deficit Results Laboratory Results: WBC 9.0 10^3/uL (4.0-10.5) 04/14/19 04:28 RBC 4.32 10^6/uL (3.72-5.28) 04/14/19 04:28 Hgb 12.2 g/dL (12.0-15.5) 04/14/19 04:28 Hct 36.6 % (36.0-47.0) 04/14/19 04:28 MCV 85 fl (80-97) 04/14/19 04:28 MCH 28.2 pg (27.0-33.4) 04/14/19 04:28 MCHC 33.3 g/dL (32.0-36.0) 04/14/19 04:28 RDW 15.1 % (11.5-14.0) H 04/14/19 04:28 Plt Count 332 10^3/uL (150-450) 04/14/19 04:28 Lymph % (Auto) 21.5 % (13-45) 04/14/19 04:28 [place] % (Auto) 8.1 % (3-13) 04/14/19 04:28 Eos % (Auto) 2.3 % (0-6) 04/14/19 04:28 Baso % (Auto) 0.5 % (0-2) 04/14/19 04:28 Absolute Neuts (auto) 6.1 10^3/uL (1.7-8.2) 04/14/19 04:28 Absolute Lymphs (auto) 1.9 10^3/uL (0.5-4.7) 04/14/19 04:28 Absolute Monos (auto) 0.7 10^3/uL (0.1-1.4) 04/14/19 04:28 Absolute Eos (auto) 0.2 10^3/uL (0.0-0.6) 04/14/19 04:28 Absolute Basos (auto) 0.0 10^3/uL (0.0-0.2) 04/14/19 04:28 Total Counted 100 04/13/19 12:04 Seg Neutrophils % 67.6 % (42-78) 04/14/19 04:28 Seg Neuts % (Manual) 88 % (42-78) H 04/13/19 12:04 Lymphocytes % (Manual) 3 % (13-45) L 04/13/19 12:04 Monocytes % (Manual) 9 % (3-13) 04/13/19 12:04 Eosinophils % (Manual) 0 % (0-6) 04/13/19 12:04 Basophils % (Manual) 0 % (0-2) 04/13/19 12:04 Abs Neuts (Manual) 23.1 10^3/uL (1.7-8.2) H 04/13/19 12:04 Abs Lymphs (Manual) 0.8 10^3/uL (0.5-4.7) 04/13/19 12:04 Abs Monocytes (Manual) 2.4 10^3/uL (0.1-1.4) H 04/13/19 12:04 Absolute Eos (Manual) 0.0 10^3/uL (0.0-0.6) 04/13/19 12:04 Abs Basophils (Manual) 0.0 10^3/uL (0.0-0.2) 04/13/19 12:04 Toxic Vacuolation PRESENT 04/13/19 12:04 Large Platelets PRESENT 04/13/19 12:04 Platelet Comment ADEQUATE 04/13/19 12:04 Anisocytosis SLIGHT 04/13/19 12:04 Sodium 139.7 mmol/L (137-145) 04/14/19 04:28 Potassium 4.2 mmol/L (3.6-5.0) 04/14/19 04:28 Chloride 111 mmol/L (98-107) H 04/14/19 04:28 Carbon Dioxide 21 mmol/L (22-30) L 04/14/19 04:28 Anion Gap 8 (5-19) 04/14/19 04:28 BUN 11 mg/dL (7-20) 04/14/19 04:28 Creatinine 0.81 mg/dL (0.52-1.25) 04/14/19 04:28 Est GFR ( Amer) > 60 (>60) 04/14/19 04:28 Est GFR (MDRD) Non-Af > 60 (>60) 04/14/19 04:28 Glucose 79 mg/dL (75-110) 04/14/19 04:28 Lactic Acid 1.3 mmol/L (0.7-2.1) 04/13/19 13:31 Calcium 8.1 mg/dL (8.4-10.2) L 04/14/19 04:28 Total Bilirubin 0.3 mg/dL (0.2-1.3) 04/14/19 04:28 Direct Bilirubin 0.3 mg/dL (0.0-0.4) 04/14/19 04:28 Neonat Total Bilirubin Not Reportable 04/14/19 04:28 Neonat Direct Bilirubin Not Reportable 04/14/19 04:28 Neonat Indirect Bili Not Reportable 04/14/19 04:28 AST 16 U/L (14-36) 04/14/19 04:28 ALT 10 U/L (<35) 04/14/19 04:28 Alkaline Phosphatase 85 U/L (38-126) 04/14/19 04:28 Troponin I < 0.012 ng/mL 04/13/19 12:04 Total Protein 5.6 g/dL (6.3-8.2) L 04/14/19 04:28 Albumin 2.8 g/dL (3.5-5.0) L 04/14/19 04:28 Time Trough Drawn 1743 04/14/19 17:43 Vancomycin Trough 19.3 ug/mL (5.0-20.0) 04/14/19 17:43 Influenza A (Rapid) NEGATIVE (NEGATIVE) 04/13/19 12:04 Influenza B (Rapid) NEGATIVE (NEGATIVE) 04/13/19 12:04 04/13/19 12:04 Troponin I < 0.012 Impressions: Chest X-Ray 04/13/19 11:49 IMPRESSION: Asymmetric parenchymal opacities in the right lower lobe. Clinical correlation for signs and symptoms of a pneumonia is recommended. Modified Barium Swallow 04/14/19 00:00 IMPRESSION: NO EVIDENCE OF PENETRATION OR ASPIRATION. PLEASE SEE SPEECH PATHOLOGIST REPORT FOR OTHER FINDINGS AND RECOMMENDATIONS. Stroke Is this a Stroke Patient?: No Acute Heart Failure - Is this a Heart Failure Patient?: No
== END 2019-04-15 14:40 | disposition home or self-care (01) | DRG 194 ==
LOC: ER 11:21 → EH 14:46 → 4N 18:17
PROVIDERS: ADMIT Internal Medicine; ATTEND Internal Medicine
DX: J13 Pneumonia due to Streptococcus pneumoniae (principal); F11.20 Opioid dependence, uncomplicated; J45.20 Mild intermittent asthma, uncomplicated; I10 Essential (primary) hypertension; K21.9 Gastro-esophageal reflux disease without esophagitis; L40.50 Arthropathic psoriasis, unspecified; G89.4 Chronic pain syndrome; E66.01 Morbid (severe) obesity due to excess calories; Z98.84 Bariatric surgery status; Z79.51 Long term (current) use of inhaled steroids; Z79.52 Long term (current) use of systemic steroids; Z79.899 Other long term (current) drug therapy
CPT/HCPCS: 36415; 71046; 74230; 80053; 80202; 83605; 84484; 85025; 87040; 87804; 93005; 93010; 94640; 96361; 96365; 99285; J1650; J2543; J3370; J3490; J7030; J7050; J7060; J7620

== ENCOUNTER → 2019-08-07 | Outpatient (CLI) | payer OTHER ==
--- NOTE | 2019-08-07 12:51 | RADIOLOGY REPORT (SQ) ---
EXAM DESCRIPTION: BARIUM SWALLOW ESOPHAGUS IMAGES COMPLETED DATE/TIME: 08/07/2019 9:02 am REASON FOR STUDY: ASPIRATION PNEUMONITIS J69.0 PNEUMONITIS DUE TO INHALATION OF FOOD AND VOMIT COMPARISON: None. TECHNIQUE: Under fluoroscopic guidance, patient ingested thin barium. Fluoroscopic spot images and r outine radiographic images acquired and stored on PACS. 12 MM BARIUM TABLET GIVEN: Yes. No significant delay in passage. LIMITATIONS: Large body habitus. FLUOROSCOPY TIME: 4.5 minutes of fluoroscopy was used. 28 images saved to PACS. FINDINGS: NEUROMUSCULAR COORDINATION OF SWALLOW: Normal. No aspiration. ESOPHAGEAL MOTILITY: Very weak primary peristalsis with stasis of barium and tertiary contractions th roughout the esophagus. There is stasis of barium within the distal esophagus in the upright positio n. There is tapered narrowing of the distal esophagus without evidence of stricture. 12 mm barium t ablet passed through the GE junction with only minimal delay. ESOPHAGEAL MUCOSA: Normal mucosa without masses or ulceration. GASTRO-ESOPHAGEAL JUNCTION: Small sliding hiatal hernia. Free-flowing gastroesophageal reflux seen. The patient is status post gastric bypass. NON-GI TRACT STRUCTURES: No significant finding. OTHER: Gastric pouch is small without evidence of mass or ulcerations. The gastric-entero anastomosi s is patent without evidence of stricture. Visualized small bowel is unremarkable. IMPRESSION: 1. ESOPHAGEAL DYSMOTILITY WITH STASIS AND TERTIARY CONTRACTIONS. 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 CONTRAST RETENTION WITHIN THE ESOPHAGUS MAY LEAD TO ASPIRATION ALTHOUGH THIS WAS NOT MARCELINA NTIFIED ON TODAY'S STUDY. 2. STATUS POST GASTRIC BYPASS WITHOUT EVIDENCE COMPLICATION. 3. SMALL SLIDING HIATAL HERNIA WITH GASTROESOPHAGEAL REFLUX. COMMENT: Quality ID 145: Final reports for procedures using fluoroscopy that document radiation exp osure indices, or exposure time and number of fluorographic images (if radiation exposure indices are not available) TECHNICAL DOCUMENTATION: JOB ID: [id number] 2010 [employer]- All Rights Reserved Reading location - IP/workstation name: [email or web address]
== END ==
LOC: RAD 08:13
PROVIDERS: ATTEND Internal Medicine Pulmonary Disease
DX: J69.0 Pneumonitis due to inhalation of food and vomit (principal); K21.9 Gastro-esophageal reflux disease without esophagitis; K44.9 Diaphragmatic hernia without obstruction or gangrene
CPT/HCPCS: 74220

== ENCOUNTER → 2019-08-26 | Outpatient (CLI) | payer OTHER | LOC: OD 08:56 | PROVIDERS: ATTEND Internal Medicine Pulmonary Disease | DX: J32.9 Chronic sinusitis, unspecified (principal) | CPT/HCPCS: 36415; 82785; 82787 ==

== ENCOUNTER 2019-09-30 12:15 | Inpatient (IN) | payer OTHER ==
--- NOTE | 2019-09-30 13:35 | RADIOLOGY REPORT (SQ) ---
EXAM DESCRIPTION: CHEST SINGLE VIEW IMAGES COMPLETED DATE/TIME: 09/30/2019 1:15 pm REASON FOR STUDY: cough COMPARISON: 04/13/2019 EXAM PARAMETERS: NUMBER OF VIEWS: One view. TECHNIQUE: Single frontal radiographic view of the chest acquired. RADIATION DOSE: NA LIMITATIONS: None. FINDINGS: LUNGS AND PLEURA: No opacities, masses or pneumothorax. No pleural effusion. MEDIASTINUM AND HILAR STRUCTURES: No masses. Contour normal. HEART AND VASCULAR STRUCTURES: Heart normal in size. Normal vasculature. BONES: No acute findings. HARDWARE: None in the chest. OTHER: No other significant finding. IMPRESSION: NO ACUTE RADIOGRAPHIC FINDING IN THE CHEST. TECHNICAL DOCUMENTATION: JOB ID: [id number] 2010 [employer]- All Rights Reserved Reading location - IP/workstation name: [email or web address]
--- NOTE | 2019-09-30 16:28 | RADIOLOGY REPORT (SQ) ---
EXAM DESCRIPTION: CT CHEST WITHOUT IMAGES COMPLETED DATE/TIME: 09/30/2019 4:10 pm REASON FOR STUDY: cp/sob COMPARISON: 09/30/2019 and 03/02/2019 TECHNIQUE: CT scan performed of the chest without intravenous contrast. Images reviewed with lung, soft tissue and bone windows. Reconstructed coronal and sagittal MPR images reviewed. All images st ored on PACS. All CT scanners at this facility use dose modulation, iterative reconstruction, and/or weight based d osing when appropriate to reduce radiation dose to as low as reasonably achievable (ALARA). [facility]: Dose Right [facility]: CareDose [facility]: Dose Right [facility]: Teradose 4D [facility]: MoVoxx RADIATION DOSE: CT Rad equipment meets quality standard of care and radiation dose reduction techniq ues were employed. CTDIvol: 21.1 mGy. DLP: 821 mGy-cm. mGy. LIMITATIONS: No technical limitations. FINDINGS: LUNGS AND PLEURA: Bilateral lower lobe mixed interstitial and airspace opacities with left lower lobe focal consolidation. No pleural effusion. No pneumothorax. HILAR AND MEDIASTINAL STRUCTURES: No identified masses or abnormal nodes. No obvious aneurysm. HEART AND VASCULAR STRUCTURES: No aneurysm. No pericardial effusion. UPPER ABDOMEN: Limited exam. Status post bariatric surgery and cholecystectomy. THYROID AND OTHER SOFT TISSUES: No masses. No adenopathy. BONES: No significant finding. HARDWARE: None in the chest. OTHER: No other significant findings. IMPRESSION: Findings are consistent with multi lobar pneumonia (left lower lobe more so than right l ower lobe). TECHNICAL DOCUMENTATION: JOB ID: [id number] Quality ID # [id number]: Final reports with documentation of one or more dose reduction techniques (e.g., Au tomated exposure control, adjustment of the mA and/or kV according to patient size, use of iterative reconstruction technique) 2010 [employer]- All Rights Reserved Reading location - IP/workstation name: [email or web address]
[2019-09-30] MEDS ORDERED: LEVOFLOXACIN 750 MG/D5W RTU 750 MG/150 ML RTUPB IV ONE (17:03)
[2019-09-30] MEDS ORDERED: MORPHINE SULFATE 10 MG/ML INJ IV ONE (17:22)
[2019-09-30] MEDS ORDERED: ONDANSETRON HCL INJ/PF 4 MG/2 ML SDV IV ONE (17:23)
[2019-09-30 17:24] LABS: VENOUS BLOOD HCO3 20.8 mmol/L (20-32); VENOUS BLOOD PCO2 33.2 mmHg (35-63); VENOUS BLOOD PH 7.41 (7.30-7.42)
[2019-09-30 17:37] LABS: ABSOLUTE BASOPHILS # (AUTO) 0.1 10^3/uL (0.0-0.2); ABSOLUTE EOSINOPHILS # (AUTO) 0.3 10^3/uL (0.0-0.6); ABSOLUTE LYMPHOCYTES (AUTO) 1.5 10^3/uL (0.5-4.7); ABSOLUTE MONOCYTES (AUTO) 0.8 10^3/uL (0.1-1.4); ABSOLUTE NEUT (AUTO) 16.6 10^3/uL (1.7-8.2); BASOPHILS % (AUTO) 0.4 % (0-2); EOSINOPHILS % (AUTO) 1.3 % (0-6); HEMATOCRIT 36.4 % (36.0-47.0); HEMOGLOBIN 11.8 g/dL (12.0-15.5); LYMPHOCYTES % (AUTO) 7.7 % (13-45); MEAN CORPUSCULAR HEMOGLOBIN 27.5 pg (27.0-33.4); MEAN CORPUSCULAR HGB CONC 32.4 g/dL (32.0-36.0); MEAN CORPUSCULAR VOLUME 85 fl (80-97); MONOCYTES % (AUTO) 4.1 % (3-13); PLATELET COUNT 420 10^3/uL (150-450); RED CELL DISTRIBUTION WIDTH 14.5 % (11.5-14.0); SEGMENTED NEUTROPHILS % (AUTO) 86.5 % (42-78); TOTAL CELLS COUNTED % (AUTO) 100 %; WHITE BLOOD COUNT 19.2 10^3/uL (4.0-10.5)
--- NOTE | 2019-09-30 17:46 | ER Document Report ---
ED General - General Chief Complaint: Breathing Difficulty Stated Complaint: COUGH Time Seen by Provider: 09/30/19 13:13 Primary Care Provider: RAMON GODOY MD [Primary Care Provider] - Follow up as needed Information source: Patient TRAVEL OUTSIDE OF THE [place] IN LAST 30 DAYS: No - HPI Notes: Patient comes in with bilateral upper shoulder pain. She is also complaining of shortness of breath. She states that she gets frequent pneumonias and has had pneumonia approximately 8 times this year. She states this feels like when she has had previous pneumonia. She states she has been on doxycycline now for the last 5 days but feels that she is getting worse. She states that shoulder pain is constant and seems to be worse with movement. It is moderate to severe in intensity. It is sharp. Her shortness of breath is also worse with movement. She states she does not have any type of cough. No known exposures to the COVID virus. No significant vomiting or diarrhea. The pain does radiate across both shoulders. - Related Data Allergies/Adverse Reactions: aspirin Allergy (Verified 04/13/19 11:43) Hives shellfish derived Allergy (Verified 04/13/19 11:43) Past Medical History - General Information source: Patient - Social History Smoking Status: Never Smoker Frequency of alcohol use: None Drug Abuse: None Family History: CAD, DM, Hypertension Pulmonary Medical History: Reports: Hx Asthma, Hx Bronchitis, Hx Pneumonia Renal/ Medical History: Denies: Hx Peritoneal Dialysis GI Medical History: Reports: Hx Gastroesophageal Reflux Disease Musculoskeletal Medical History: Reports Hx Arthritis Psychiatric Medical History: Denies: Hx Depression Past Surgical History: Reports: Hx Bowel Surgery - gastirc bypass 2008 - Immunizations Hx Diphtheria, Pertussis, Tetanus Vaccination: Yes Hx Pneumococcal Vaccination: 02/12/08 Review of Systems - Review of Systems Constitutional: Malaise, Weakness Cardiovascular: Chest pain, Palpitations Respiratory: Short of breath. denies: Cough -: Yes All other systems reviewed and negative Physical Exam - Vital signs Vitals: Temp Pulse Resp BP Pulse Ox 99.4 F 94 24 H 138/79 H 100 09/30/19 12:28 09/30/19 12:28 09/30/19 12:28 09/30/19 12:28 09/30/19 12:28 Interpretation: Tachypneic - General General appearance: Appears well, Alert In distress: None - HEENT Head: Normocephalic, Atraumatic Eyes: Normal Pupils: PERRL - Respiratory Respiratory status: No respiratory distress Chest status: Nontender Breath sounds: Decreased air movement Chest palpation: Normal - Cardiovascular Rhythm: Regular Heart sounds: Normal auscultation Murmur: No - Abdominal Inspection: Morbidly Obese Distension: No distension Bowel sounds: Normal Tenderness: Nontender Organomegaly: No organomegaly - Back Back: Normal, Nontender - Extremities General upper extremity: Normal inspection, Nontender, Normal color, Normal ROM, Normal temperature General lower extremity: Normal inspection, Nontender, Normal color, Normal ROM, Normal temperature, Normal weight bearing. No: Robert's sign - Neurological Neuro grossly intact: Yes Cognition: Normal Orientation: AAOx4 [place] Coma Scale Eye Opening: Spontaneous [place] Coma Scale Verbal: Oriented F[place] Coma Scale Motor: Obeys Commands Fadumo Coma Scale Total: 15 Speech: Normal Motor strength normal: LUE, RUE, LLE, RLE Sensory: Normal - Psychological Associated symptoms: Normal affect, Normal mood - Skin Skin Temperature: Warm Skin Moisture: Dry Skin Color: Normal Course - Re-evaluation Re-evalutation: 09/30/19 17:45 Patient arrives stating that she feels like she does when she has pneumonia. She states she gets frequent pneumonias. CT does show bilateral pneumonia. She has failed outpatient therapy. I did discuss the case with her group rooms coordinator who states that she has a IgG hypergammaglobulinemia. It seems prudent even though patient's vitals are relatively stable for her to be admitted since she has repeat bilateral pneumonia with failure of outpatient therapy. - Vital Signs Vital signs: Temp Pulse Resp BP Pulse Ox 99.4 F 94 24 H 138/79 H 100 09/30/19 12:28 09/30/19 12:28 09/30/19 12:28 09/30/19 12:28 09/30/19 12:28 - Laboratory Result Diagrams: 09/30/19 17:07 09/30/19 17:07 Laboratory results interpreted by me: 09/30/19 09/30/19 17:07 17:07 WBC 19.2 H Hgb 11.8 L RDW 14.5 H Lymph % (Auto) 7.7 L Absolute Neuts (auto) 16.6 H Seg Neutrophils % 86.5 H VBG pCO2 33.2 L - Diagnostic Test Radiology reviewed: Image reviewed, Reports reviewed - EKG Interpretation by Me EKG shows normal: Sinus rhythm Rate: Normal - 87 Rhythm: NSR [place]/QRS: No: Right axis deviation, Left axis deviation Discharge - Discharge Clinical Impression: Bilateral pneumonia Qualifiers: Pneumonia type: due to unspecified organism Lung location: upper lobe of lung Qualified Code(s): J18.9 - Pneumonia, unspecified organism Condition: Serious Disposition: ADMITTED INPATIENT Admitting Provider: Ingris (Hospitalist) Unit Admitted: Medical Floor Referrals: RAMON GODOY MD [Primary Care Provider] - Follow up as needed
[2019-09-30 17:57] LABS: ALBUMIN 3.1 g/dL (3.5-5.0); ALKALINE PHOSPHATASE 104 U/L (38-126); ANION GAP 6 (5-19); ASPARTATE AMINO TRANSFERASE 18 U/L (14-36); BILIRUBIN,DIRECT 0.1 mg/dL (0.0-0.4); BILIRUBIN,TOTAL 0.5 mg/dL (0.2-1.3); BLOOD UREA NITROGEN 11 mg/dL (7-20); CALCIUM 8.3 mg/dL (8.4-10.2); CARBON DIOXIDE 24 mmol/L (22-30); CHLORIDE 109 mmol/L (98-107); GLUCOSE 102 mg/dL (75-110); POTASSIUM 4.2 mmol/L (3.6-5.0)
[2019-09-30] MEDS ORDERED: IPRATROPIUM/ALBUTEROL 0.5-2.5 MG/3 ML AMPUL NEB PRN (18:13)
[2019-09-30] MEDS ORDERED: ACETAMINOPHEN 325 MG TABLET PO PRN (18:13)
--- NOTE | 2019-09-30 18:33 | PDOC H&P ---
History of Present Illness Admission Date/PCP: RAMON GODOY MD Patient complains of: Patient presents emergency room complains of difficulty breathing, bilateral upper shoulder pain and shortness of breath. She states she has been treated for pneumonia. History of Present Illness: HIRAL ADLER is a 44 year old female Patient presents emergency room complains of difficulty breathing, bilateral upper shoulder pain and shortness of breath. She states she has been treated for pneumonia. She gives a history of frequent pneumonias. She is currently on doxycycline for about 5 days. She said she was diagnosed with pneumonia at [facility] but her symptoms have gotten worse. She is currently in the COVID rule out unit although denies any other pertinent symptoms. 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 She denies any nausea vomiting fever or chest pain. Apparently she says she has had about 8-9 bouts of pneumonia this year alone Past Medical History Pulmonary Medical History: Reports: Asthma, Bronchitis, Pneumonia GI Medical History: Reports: Gastroesophageal Reflux Disease Musculoskeltal Medical History: Reports: Arthritis Psychiatric Medical History: Denies: Depression Hematology: Reports: Anemia Past Surgical History Past Surgical History: Reports: None Social History Information Source: Patient Smoking Status: Never Smoker Frequency of Alcohol Use: Rare Hx Recreational Drug Use: No Drugs: None Hx Prescription Drug Abuse: No - Advance Directive Resuscitation Status: Full Code Family History Family History: CAD, DM, Hypertension Parental Family History Reviewed: Yes Children Family History Reviewed: Yes Sibling(s) Family History Reviewed.: NA Medication/Allergy Home Medications: Amitriptyline HCl [Elavil 100 mg Tablet] 100 mg PO QHS 10/30/18 Cyanocobalamin (Vitamin B-12) [Vitamin B-12 Inj 1000 Mcg/1 ml Vial] 1,000 mcg IM .MONTHLY 10/30/18 Diphenhydramine HCl [Benadryl] 50 mg PO QHS 10/30/18 Hydromorphone HCl [Dilaudid] 8 mg PO DAILYP PRN 10/30/18 Topiramate [Topamax 100 mg Tablet] 100 mg PO QHS 10/30/18 Albuterol Sulfate [Proair HFA Inhalation Aerosol 8.5 gm MDI] 2 puff IH Q4HP PRN 03/02/19 Galcanezumab-Gnlm [Emgality Pen] 1 dose SQ .MONTHLY 03/02/19 Zolmitriptan 2.5 mg PO ASDIR PRN 03/02/19 Hydromorphone HCl [Dilaudid 2 mg Tablet] 8 mg PO QHS tablet 03/04/19 Amoxicillin/Potassium Clav [Augmentin Xr 1,000-62.5 Tab] 2 each PO BID 5 Days #10 tab.er.12h 04/15/19 Azithromycin [Zithromax 250 mg Tablet] 250 mg PO ASDIR PRN 4 Days #6 tablet 04/15/19 Fluconazole [Diflucan 100 mg Tablet] 100 mg PO DAILY 3 Days #3 tablet 04/15/19 Allergies/Adverse Reactions: aspirin Allergy (Verified 04/13/19 11:43) Hives shellfish derived Allergy (Verified 04/13/19 11:43) Review of Systems Constitutional: ABSENT: chills, fever(s), headache(s), weight gain, weight loss Eyes: ABSENT: visual disturbances Ears: ABSENT: hearing changes Nose, Mouth, and Throat: ABSENT: mouth pain Cardiovascular: ABSENT: chest pain, dyspnea on exertion, edema, orthropnea, palpitations Respiratory: PRESENT: cough, dyspnea. ABSENT: hemoptysis Gastrointestinal: ABSENT: abdominal pain, constipation, diarrhea, hematemesis, hematochezia, nausea, vomiting Genitourinary: ABSENT: dysuria, hematuria Musculoskeletal: PRESENT: back pain. ABSENT: joint swelling Integumentary: ABSENT: rash, wounds Neurological: ABSENT: abnormal gait, abnormal speech, confusion, dizziness, focal weakness, syncope Psychiatric: ABSENT: anxiety, depression, homidical ideation, suicidal ideation Endocrine: ABSENT: cold intolerance, heat intolerance, polydipsia, polyuria Hematologic/Lymphatic: ABSENT: easy bleeding, easy bruising Physical Exam Vital Signs: Temp Pulse Resp BP Pulse Ox 99.4 F 94 27 H 118/61 100 09/30/19 12:28 09/30/19 12:28 09/30/19 18:01 09/30/19 18:00 09/30/19 18:01 Intake & Output 09/29/19 09/30/19 10/01/19 06:59 06:59 06:59 Weight 144.696 kg General appearance: PRESENT: no acute distress, well-developed, well-nourished Head exam: PRESENT: atraumatic, normocephalic Eye exam: PRESENT: conjunctiva pink, EOMI, PERRLA. ABSENT: scleral icterus Ear exam: PRESENT: normal external ear exam Mouth exam: PRESENT: moist, tongue midline Neck exam: ABSENT: carotid bruit, JVD, lymphadenopathy, thyromegaly Respiratory exam: PRESENT: decreased breath sounds, unlabored. ABSENT: accessory muscle use, rales, rhonchi, tachypnea, wheezes Cardiovascular exam: PRESENT: RRR. ABSENT: diastolic murmur, rubs, systolic m urmur Pulses: PRESENT: normal dorsalis pedis pul Vascular exam: PRESENT: normal capillary refill GI/Abdominal exam: PRESENT: normal bowel sounds, soft. ABSENT: distended, guarding, mass, organolmegaly, rebound, tenderness Rectal exam: PRESENT: deferred Extremities exam: PRESENT: full ROM, other - Left lower extremity swelling with minimal tenderness. ABSENT: calf tenderness, clubbing, pedal edema Neurological exam: PRESENT: alert, awake, oriented to person, oriented to place, oriented to time, oriented to situation, CN II-XII grossly intact. ABSENT: motor sensory deficit Psychiatric exam: PRESENT: appropriate affect, normal mood. ABSENT: homicidal ideation, suicidal ideation Skin exam: PRESENT: dry, intact, warm. ABSENT: cyanosis, rash Results Laboratory Results: 09/30/19 17:07 09/30/19 17:07 09/30/19 09/30/19 09/30/19 17:07 17:07 17:07 WBC 19.2 H RBC 4.30 Hgb 11.8 L Hct 36.4 MCV 85 MCH 27.5 MCHC 32.4 RDW 14.5 H Plt Count 420 Seg Neutrophils % 86.5 H VBG pH 7.41 VBG pCO2 33.2 L VBG HCO3 20.8 VBG Base Excess -3.0 Sodium 138.8 Potassium 4.2 Chloride 109 H Carbon Dioxide 24 Anion Gap 6 BUN 11 Creatinine 0.78 Est GFR ( Amer) > 60 Glucose 102 Lactic Acid Calcium 8.3 L Total Bilirubin 0.5 AST 18 Alkaline Phosphatase 104 Total Protein 6.0 L Albumin 3.1 L 09/30/19 17:07 WBC RBC Hgb Hct MCV MCH MCHC RDW Plt Count Seg Neutrophils % VBG pH VBG pCO2 VBG HCO3 VBG Base Excess Sodium Potassium Chloride Carbon Dioxide Anion Gap BUN Creatinine Est GFR ( Amer) Glucose Lactic Acid 0.9 Calcium Total Bilirubin AST Alkaline Phosphatase Total Protein Albumin 09/30/19 17:07 Troponin I < 0.012 Impressions: Chest X-Ray 09/30/19 00:00 IMPRESSION: NO ACUTE RADIOGRAPHIC FINDING IN THE CHEST. Chest CT 09/30/19 15:12 IMPRESSION: Findings are consistent with multi lobar pneumonia (left lower lobe more so than right lower lobe). Assessment and Plan - Diagnosis (1) Hypergammaglobulinemia, unspecified Is this a current diagnosis for this admission?: Yes (2) Bilateral pneumonia Qualifiers: Pneumonia type: due to unspecified organism Lung location: upper lobe of lung Qualified Code(s): J18.9 - Pneumonia, unspecified organism Is this a current diagnosis for this admission?: Yes (3) Morbid obesity Is this a current diagnosis for this admission?: Yes Plan: Patient is super morbid obese. (4) Sepsis Qualifiers: Sepsis type: sepsis due to unspecified organism Sepsis acute organ dysfunction status: with acute organ dysfunction Severe sepsis acute organ dysfunction type: acute respiratory failure Acute respiratory failure type: with hypoxia Severe sepsis shock status: without septic shock Qualified Code(s): A41.9 - Sepsis, unspecified organism; R65.20 - Severe sepsis without septic shock; J96.01 - Acute respiratory failure with hypoxia Is this a current diagnosis for this admission?: Yes Plan: Patient was tachypneic although afebrile. She has significant leukocytosis as well as source infection of bilateral pneumonia - Plan Summary Summary: Although patient appears to be relatively stable clinically she does have s ignificant criteria for sepsis. She apparently also has hypogammaglobulinemia. She has failed outpatient therapy. She needs IV antibiotics and of course she is a COVID infection rule out. Patient will be started on Zithromax and ceftriaxone IV. As the index of suspicion for COVID is very low I will defer putting her on any steroids for now. this should be reevaluated and can be adjusted as indicated. - Time Time Spent with patient: 35 or more minutes Medications reviewed and adjusted accordingly: Yes Anticipated Discharge Disposition: Home, Self Care Anticipated Discharge Timeframe: within 72 hours - Inpatient Certification Based on my medical assessment, after consideration of the patient's comorbidities, presenting symptoms, or acuity I expect that the services needed warrant INPATIENT care.: Yes Medical Necessity: Need for IV Antibiotics
[2019-09-30] MEDS: RINGERS SOLUTION,LACTATED 1,000 ML IV PRN (19:09)
[2019-09-30] MEDS ORDERED: GUAIFENESIN 600 MG TABLET.SA PO SCH (22:00)
[2019-09-30] MEDS: FAMOTIDINE 20 MG TABLET PO SCH (23:14)
[2019-09-30] MEDS: ENOXAPARIN SODIUM INJ 40 MG/0.4 ML DISP.SYRIN SUBCUT SCH (23:16)
[2019-10-01 02:38] LABS: ABSOLUTE BASOPHILS # (AUTO) 0.1 10^3/uL (0.0-0.2); ABSOLUTE EOSINOPHILS # (AUTO) 0.5 10^3/uL (0.0-0.6); ABSOLUTE MONOCYTES (AUTO) 0.7 10^3/uL (0.1-1.4); ABSOLUTE NEUT (AUTO) 7.7 10^3/uL (1.7-8.2); BASOPHILS % (AUTO) 0.5 % (0-2); EOSINOPHILS % (AUTO) 4.2 % (0-6); HEMATOCRIT 35.9 % (36.0-47.0); HEMOGLOBIN 11.9 g/dL (12.0-15.5); LYMPHOCYTES % (AUTO) 18.5 % (13-45); MEAN CORPUSCULAR HEMOGLOBIN 27.8 pg (27.0-33.4); MEAN CORPUSCULAR HGB CONC 33.2 g/dL (32.0-36.0); MEAN CORPUSCULAR VOLUME 84 fl (80-97); MONOCYTES % (AUTO) 6.2 % (3-13); PLATELET COUNT 394 10^3/uL (150-450); RED BLOOD COUNT 4.28 10^6/uL (3.72-5.28); RED CELL DISTRIBUTION WIDTH 14.9 % (11.5-14.0); SEGMENTED NEUTROPHILS % (AUTO) 70.6 % (42-78); TOTAL CELLS COUNTED % (AUTO) 100 %; WHITE BLOOD COUNT 10.9 10^3/uL (4.0-10.5)
[2019-10-01 02:57] LABS: ANION GAP 6 (5-19); BLOOD UREA NITROGEN 12 mg/dL (7-20); CALCIUM 8.3 mg/dL (8.4-10.2); CARBON DIOXIDE 24 mmol/L (22-30); CHLORIDE 109 mmol/L (98-107); GLUCOSE 94 mg/dL (75-110); POTASSIUM 4.3 mmol/L (3.6-5.0)
[2019-10-01] MEDS: HYDROMORPHONE HCL 2 MG TABLET PO PRN ×3 (04:09→21:15)
[2019-10-01] MEDS: RINGERS SOLUTION,LACTATED 1,000 ML IV PRN (07:50)
[2019-10-01] MEDS ORDERED: CEFTRIAXONE 2 GM/D5W RTU 2 GM/50 ML RTUPB IV SCH (08:00)
[2019-10-01] MEDS: ENOXAPARIN SODIUM INJ 40 MG/0.4 ML DISP.SYRIN SUBCUT SCH (09:40)
[2019-10-01] MEDS: AZITHROMYCIN 500 MG in DEXTROSE 5%-WATER 250 ML IV SCH (09:40)
[2019-10-01] MEDS: GUAIFENESIN 600 MG TABLET.SA PO SCH ×2 (09:40→21:16)
[2019-10-01] MEDS: FAMOTIDINE 20 MG TABLET PO SCH ×2 (09:40→21:16)
--- NOTE | 2019-10-01 09:42 | EKG REPORT ---
SEVERITY:- OTHERWISE NORMAL ECG - SINUS RHYTHM MINIMAL ST DEPRESSION, ANTEROLATERAL LEADS : Confirmed by: Theresa Merritt 01-Oct-2019 09:41:56
--- NOTE | 2019-10-01 18:30 | PDOC PROGRESS REPORT ---
Subjective Progress Note for:: 10/01/19 Subjective:: The patient was seen and examined at bedside. She complains of mild SOB, no cough, no fever, no chest apin. Appetite and bowel movement good Reason For Visit: PNEUMONIA,R/O COVID Physical Exam Vital Signs: Temp Pulse Resp BP Pulse Ox 97.9 F 73 17 142/81 H 98 10/01/19 15:33 10/01/19 15:33 10/01/19 15:33 10/01/19 15:33 10/01/19 15:33 Intake & Output 09/30/19 10/01/19 10/02/19 06:59 06:59 06:59 Intake Total 350 1251 Balance 350 1251 Weight 148.6 kg General appearance: PRESENT: no acute distress, cooperative, morbidly obese Head exam: PRESENT: atraumatic, normocephalic Ear exam: PRESENT: normal external ear exam Mouth exam: PRESENT: moist, neck supple Respiratory exam: PRESENT: clear to auscultation marita. ABSENT: rales, rhonchi, stridor, wheezes Cardiovascular exam: PRESENT: RRR, +S1 - normal, +S2 - normal Vascular exam: PRESENT: normal capillary refill GI/Abdominal exam: PRESENT: normal bowel sounds. ABSENT: guarding, rebound, tenderness Rectal exam: PRESENT: deferred Extremities exam: ABSENT: calf tenderness Musculoskeletal exam: PRESENT: full ROM Psychiatric exam: PRESENT: normal mood Results Laboratory Results: 10/01/19 02:25 10/01/19 02:25 09/30/19 09/30/19 10/01/19 17:07 23:40 02:25 WBC RBC Hgb Hct MCV MCH MCHC RDW Plt Count Seg Neutrophils % Sodium 138.8 Potassium 4.2 Chloride 109 H Carbon Dioxide 24 Anion Gap 6 BUN 11 Creatinine 0.78 Est GFR ( Amer) > 60 Glucose 102 Lactic Acid 0.7 0.7 Calcium 8.3 L Total Bilirubin 0.5 AST 18 Alkaline Phosphatase 104 Total Protein 6.0 L Albumin 3.1 L 10/01/19 10/01/19 02:25 02:25 WBC 10.9 H RBC 4.28 Hgb 11.9 L Hct 35.9 L MCV 84 MCH 27.8 MCHC 33.2 RDW 14.9 H Plt Count 394 Seg Neutrophils % 70.6 Sodium 139.4 Potassium 4.3 Chloride 109 H Carbon Dioxide 24 Anion Gap 6 BUN 12 Creatinine 0.85 Est GFR ( Amer) > 60 Glucose 94 Lactic Acid Calcium 8.3 L Total Bilirubin AST Alkaline Phosphatase Total Protein Albumin 09/30/19 17:07 Troponin I < 0.012 Impressions: Chest X-Ray 09/30/19 00:00 IMPRESSION: NO ACUTE RADIOGRAPHIC FINDING IN THE CHEST. Chest CT 09/30/19 15:12 IMPRESSION: Findings are consistent with multi lobar pneumonia (left lower lobe more so than right lower lobe). Assessment and Plan - Diagnosis (1) Bilateral pneumonia Qualifiers: Pneumonia type: due to unspecified organism Lung location: unspecified part of lung Qualified Code(s): J18.9 - Pneumonia, unspecified organism Is this a current diagnosis for this admission?: Yes Plan: - as seen on chest XR - currently on Ceftiraxone and azithro D2 - no fever, WBC normal - blood culture prelim no growth - will re assess her tomorrow. Plan is to switch her to oral abx if blood cx does not grow anything and she remains afebrile (2) Hypergammaglobulinemia, unspecified Is this a current diagnosis for this admission?: Yes Plan: - according to the patient her IgE level is elevated. Primary care working on insurance for her to get Zolair - she has a history of recurrent pneumonia - monitor for now (3) Sepsis Qualifiers: Sepsis type: sepsis due to unspecified organism Sepsis acute organ dysfunction status: with acute organ dysfunction Severe sepsis acute organ dysfunction type: acute respiratory failure Acute respiratory failure type: with hypoxia Severe sepsis shock status: without septic shock Qualified Code(s): A41.9 - Sepsis, unspecified organism; R65.20 - Severe sepsis without septic shock; J96.01 - Acute respiratory failure with hypoxia Is this a current diagnosis for this admission?: Yes Plan: - secondary to bilateral pneumonia - RESOLVING - WBX 10.7, afberile, VS stable - awaiting final blood culture - continue IV for today the plan to switch her to oral tomorrow (4) Suspected COVID-19 virus infection Is this a current diagnosis for this admission?: Yes Plan: - patient came in with bilateral pneumonia inthe setting of hyper IgE. No known exposure. COVID test sent - awaiting result (5) Morbid obesity Is this a current diagnosis for this admission?: Yes Plan: - Patient is super morbid obese. - advised calorie control, lifestyle modification and exercise - Plan Summary Summary: Although patient appears to be relatively stable clinically she does have significant criteria for sepsis. She apparently also has hypogammaglobulinemia. She has failed outpatient therapy. She needs IV antibiotics and of course she is a COVID infection rule out. Patient will be started on Zithromax and c eftriaxone IV. As the index of suspicion for COVID is very low I will defer putting her on any steroids for now. this should be reevaluated and can be adjusted as indicated. - Time Time Spent with patient: 25-34 minutes Medications reviewed and adjusted accordingly: Yes Anticipated Discharge Disposition: Home, Self Care Anticipated Discharge Timeframe: to be determined - Inpatient Certification I certify that my determination is in accordance with my understanding of Medicare's requirements for reasonable and necessary INPATIENT services [42 CFR 412.3e].: Yes Medical Necessity: Risk of Complication if Not Cared For in Hospital
[2019-10-02 05:34] LABS: ABSOLUTE EOSINOPHILS # (AUTO) 0.7 10^3/uL (0.0-0.6); ABSOLUTE MONOCYTES (AUTO) 0.7 10^3/uL (0.1-1.4); ABSOLUTE NEUT (AUTO) 5.2 10^3/uL (1.7-8.2); BASOPHILS % (AUTO) 0.5 % (0-2); EOSINOPHILS % (AUTO) 8.1 % (0-6); HEMATOCRIT 36.3 % (36.0-47.0); HEMOGLOBIN 11.8 g/dL (12.0-15.5); LYMPHOCYTES % (AUTO) 23.3 % (13-45); MEAN CORPUSCULAR HGB CONC 32.5 g/dL (32.0-36.0); MEAN CORPUSCULAR VOLUME 86 fl (80-97); MONOCYTES % (AUTO) 8.2 % (3-13); PLATELET COUNT 401 10^3/uL (150-450); RED BLOOD COUNT 4.22 10^6/uL (3.72-5.28); RED CELL DISTRIBUTION WIDTH 14.7 % (11.5-14.0); SEGMENTED NEUTROPHILS % (AUTO) 59.9 % (42-78); TOTAL CELLS COUNTED % (AUTO) 100 %; WHITE BLOOD COUNT 8.8 10^3/uL (4.0-10.5)
[2019-10-02] MEDS: ENOXAPARIN SODIUM INJ 40 MG/0.4 ML DISP.SYRIN SUBCUT SCH (09:32)
[2019-10-02] MEDS: GUAIFENESIN 600 MG TABLET.SA PO SCH (09:32)
[2019-10-02] MEDS: HYDROMORPHONE HCL 2 MG TABLET PO PRN (09:32)
[2019-10-02] MEDS: FAMOTIDINE 20 MG TABLET PO SCH (09:32)
[2019-10-02] MEDS: AZITHROMYCIN 500 MG in DEXTROSE 5%-WATER 250 ML IV SCH (09:33)
[2019-10-02 11:32] VITALS: BP 113/71
--- NOTE | 2019-10-02 23:14 | PDOC DISCHARGE SUMMARY ---
Impression - Admit/DC Date/PCP Admission Date/Primary Care Provider: 09/30/19 18:30 RAMON GODOY MD Discharge Date: 10/02/19 - Discharge Diagnosis (1) Bilateral pneumonia Is this a current diagnosis for this admission?: Yes (2) Hypergammaglobulinemia, unspecified Is this a current diagnosis for this admission?: Yes (3) Sepsis Is this a current diagnosis for this admission?: Yes (4) Suspected COVID-19 virus infection Is this a current diagnosis for this admission?: Yes (5) Morbid obesity Is this a current diagnosis for this admission?: Yes - Assessment Summary: Ashish Perez is a 54-year-old female past medical history of recurrent pneumonia, hypergammaglobulinemia IgE, morbid obesity who was admitted with a chief complaint of difficulty breathing bilateral upper shoulder pain and shortn ess of breath. She was diagnosed with pneumonia 5 days prior to admission and was started on doxycycline however her symptoms were not improving that is why she presented to [place] ED. s and subsequently improved the following days he was tested for COVID-19 and all result was negative. She was also started on ceftriaxone and azithromycin inpatient. Culture negative. She was eventually sent home on day 4 of admission on amoxicillin and azithromycin to complete 7 days of treatment - Additional Information Resuscitation Status: Full Code Discharge Diet: As Tolerated Discharge Activity: Activity As Tolerated Referrals: RAMON GODOY MD [Primary Care Provider] - Follow up as needed Prescriptions: Amoxicillin 875 mg PO TID 4 Days #12 tablet Azithromycin [Zithromax Inj 500 mg Vial] 500 mg PO DAILY 2 Days #2 tab Home Medications: Amitriptyline HCl [Elavil 100 mg Tablet] 100 mg PO QHS 10/30/18 Cyanocobalamin (Vitamin B-12) [Vitamin B-12 Inj 1000 Mcg/1 ml Vial] 1,000 mcg IM .MONTHLY 10/30/18 Topiramate [Topamax 100 mg Tablet] 100 mg PO QHS 10/30/18 Albuterol Sulfate [Proair HFA Inhalation Aerosol 8.5 gm MDI] 2 puff IH Q4HP PRN 03/02/19 Cholecalciferol (Vitamin D3) [Vitamin D3] 50,000 unit PO DAILY 09/30/19 Furosemide [Lasix] 40 mg PO DAILY 09/30/19 Hydromorphone HCl [Dilaudid 2 mg Tablet] 4 mg PO TIDP PRN 09/30/19 Ubrogepant [Ubrelvy] 100 mg PO 09/30/19 Amoxicillin 875 mg PO TID 4 Days #12 tablet 10/02/19 Azithromycin [Zithromax Inj 500 mg Vial] 500 mg PO DAILY 2 Days #2 tab 10/02/19 History of Present Illiness History of Present Illness: HIRAL ADLER is a 44 year old female Hospital Course Hospital Course: 44-year-old female with history of recurrent pneumonia admitted due to shortness of breath. Morbidly Obese with history of hypogammaglobulinemia. Chest CT showed multilobar pneumonia. COVID test negative. Culture negative. She was started on ceftriaxone and azithromycin. SHe subsequently improved and felt better. And was discharged on day 4 of admission Physical Exam Vital Signs: Temp Pulse Resp BP Pulse Ox 99.4 F 109 H 22 H 113/71 96 10/02/19 17:28 10/02/19 17:28 10/02/19 17:28 10/02/19 17:28 10/02/19 17:28 Intake & Output 10/01/19 10/02/19 10/03/19 06:59 06:59 06:59 Intake Total 350 2091 250 Balance 350 2091 250 Weight 148.6 kg 149.8 kg General appearance: PRESENT: no acute distress, morbidly obese Head exam: PRESENT: atraumatic, normocephalic Mouth exam: PRESENT: moist Neck exam: PRESENT: full ROM Respiratory exam: PRESENT: symmetrical. ABSENT: crackles, rhonchi Cardiovascular exam: PRESENT: RRR, +S1, +S2 GI/Abdominal exam: PRESENT: normal bowel sounds, soft. ABSENT: guarding, rebound Musculoskeletal exam: PRESENT: ambulatory, full ROM Neurological exam: PRESENT: alert, awake Psychiatric exam: PRESENT: normal mood Results Laboratory Results: WBC 8.8 10^3/uL (4.0-10.5) 10/02/19 04:23 RBC 4.22 10^6/uL (3.72-5.28) 10/02/19 04:23 Hgb 11.8 g/dL (12.0-15.5) L 10/02/19 04:23 Hct 36.3 % (36.0-47.0) 10/02/19 04:23 MCV 86 fl (80-97) 10/02/19 04:23 MCH 28.0 pg (27.0-33.4) 10/02/19 04:23 MCHC 32.5 g/dL (32.0-36.0) 10/02/19 04:23 RDW 14.7 % (11.5-14.0) H 10/02/19 04:23 Plt Count 401 10^3/uL (150-450) 10/02/19 04:23 Lymph % (Auto) 23.3 % (13-45) 10/02/19 04:23 [place] % (Auto) 8.2 % (3-13) 10/02/19 04:23 Eos % (Auto) 8.1 % (0-6) H 10/02/19 04:23 Baso % (Auto) 0.5 % (0-2) 10/02/19 04:23 Absolute Neuts (auto) 5.2 10^3/uL (1.7-8.2) 10/02/19 04:23 Absolute Lymphs (auto) 2.0 10^3/uL (0.5-4.7) 10/02/19 04:23 Absolute Monos (auto) 0.7 10^3/uL (0.1-1.4) 10/02/19 04:23 Absolute Eos (auto) 0.7 10^3/uL (0.0-0.6) H 10/02/19 04:23 Absolute Basos (auto) 0.0 10^3/uL (0.0-0.2) 10/02/19 04:23 Seg Neutrophils % 59.9 % (42-78) 10/02/19 04:23 VBG pH 7.41 (7.30-7.42) 09/30/19 17:07 VBG pCO2 33.2 mmHg (35-63) L 09/30/19 17:07 VBG HCO3 20.8 mmol/L (20-32) 09/30/19 17:07 VBG Base Excess -3.0 mmol/L 09/30/19 17:07 Sodium 139.4 mmol/L (137-145) 10/01/19 02:25 Potassium 4.3 mmol/L (3.6-5.0) 10/01/19 02:25 Chloride 109 mmol/L (98-107) H 10/01/19 02:25 Carbon Dioxide 24 mmol/L (22-30) 10/01/19 02:25 Anion Gap 6 (5-19) 10/01/19 02:25 BUN 12 mg/dL (7-20) 10/01/19 02:25 Creatinine 0.85 mg/dL (0.52-1.25) 10/01/19 02:25 Est GFR ( Amer) > 60 (>60) 10/01/19 02:25 Est GFR (MDRD) Non-Af > 60 (>60) 10/01/19 02:25 Glucose 94 mg/dL (75-110) 10/01/19 02:25 POC Glucose 81 mg/dL (70-110) 10/02/19 16:05 Lactic Acid 0.7 mmol/L (0.7-2.1) 10/01/19 02:25 Calcium 8.3 mg/dL (8.4-10.2) L 10/01/19 02:25 Total Bilirubin 0.5 mg/dL (0.2-1.3) 09/30/19 17:07 Direct Bilirubin 0.1 mg/dL (0.0-0.4) 09/30/19 17:07 Neonat Total Bilirubin Not Reportable 09/30/19 17:07 Neonat Direct Bilirubin Not Reportable 09/30/19 17:07 Neonat Indirect Bili Not Reportable 09/30/19 17:07 AST 18 U/L (14-36) 09/30/19 17:07 ALT 11 U/L (<35) 09/30/19 17:07 Alkaline Phosphatase 104 U/L (38-126) 09/30/19 17:07 Troponin I < 0.012 ng/mL 09/30/19 17:07 Total Protein 6.0 g/dL (6.3-8.2) L 09/30/19 17:07 Albumin 3.1 g/dL (3.5-5.0) L 09/30/19 17:07 COVID-19 Source NASOPHARYNGEAL 09/30/19 17:46 COVID-19 (HOLLY) NOT DETECTED 09/30/19 17:46 09/30/19 17:07 Troponin I < 0.012 Impressions: Chest X-Ray 09/30/19 00:00 IMPRESSION: NO ACUTE RADIOGRAPHIC FINDING IN THE CHEST. Chest CT 09/30/19 15:12 IMPRESSION: Findings are consistent with multi lobar pneumonia (left lower lobe more so than right lower lobe). Plan Health Concerns: None Plan of Treatment: To complete antibiotics at home Time Spent: Less than 30 Minutes Stroke Is this a Stroke Patient?: No Stroke Pt being discharged on Anti-thrombolytic therapy?: No Reason(s) for not prescribing Anti-thrombolytic therapy:: Not indicated - Not indicated Stroke Pt being discharged on Anti-coagulation therapy?: No Reason(s) for not prescribing Anti-coagulation therapy:: Not indicated Stroke Pt being discharged on Statins?: No Reason(s) for not prescribing Statins therapy:: Not indicated Acute Heart Failure - Is this a Heart Failure Patient?: No Documentation of LVEF assessment?: No, Document reason - not diagnosed LVEF - Reason: No heart failure Anticoagulant Therapy: N/A Reason(s) not Discharged on Anticoagulant Therapy: Other - not indicated Anticoagulant Therapy Reason - Other: Not indicated Discharged on Evidence-Based Beta Blockers: No, document contraindications - Not indicated Reason(s) not discharged on Evidence-Based Beta Blockers: Other Beta Amy Reason - Other: Not indicated Discharged on ARNI?: No-Document Contraindications - Not indicated Reason(s) not discharged on ARNI: Other ARNI Reason - Other: Not indicated Discharged on ARB?: No-document contraindications - not indicated Reason(s) not Discharged on ARB: Other - not indicated ARB Reason - Other: Not indicated Discharged on ACEI?: No, document contraindications - Not indicated Reason(s) not Discharged on ACEI: other - Not indicated ACEI Reason - Other: Not indicated For LVEF <35%, discharged on Aldosterone Antagonist?: No-document contraincations - Not indicated Reason(s) not discharged on Aldosterone Antagonist: Other - not Indicated Aldosterone Antagonist Reason - Other: Not indicated
--- NOTE | 2019-10-03 06:51 | PDOC PROGRESS REPORT ---
Subjective Progress Note for:: 10/02/19 Subjective:: The patient was seen and examined at bedside. Minimal shortness of breath no cough no fever appetite good. Reason For Visit: PNEUMONIA,R/O COVID Physical Exam Vital Signs: Temp Pulse Resp BP Pulse Ox 98.0 F 71 17 120/64 95 10/02/19 03:54 10/02/19 03:54 10/02/19 03:54 10/02/19 03:54 10/02/19 03:54 Intake & Output 09/30/19 10/01/19 10/02/19 06:59 06:59 06:59 Intake Total 350 2091 Balance 350 2091 Weight 148.6 kg Results Laboratory Results: 10/02/19 04:23 10/01/19 02:25 10/02/19 04:23 WBC 8.8 RBC 4.22 Hgb 11.8 L Hct 36.3 MCV 86 MCH 28.0 MCHC 32.5 RDW 14.7 H Plt Count 401 Seg Neutrophils % 59.9 09/30/19 17:07 Troponin I < 0.012 Impressions: Chest X-Ray 09/30/19 00:00 IMPRESSION: NO ACUTE RADIOGRAPHIC FINDING IN THE CHEST. Chest CT 09/30/19 15:12 IMPRESSION: Findings are consistent with multi lobar pneumonia (left lower lobe more so than right lower lobe). Assessment and Plan - Diagnosis (1) Bilateral pneumonia Qualifiers: Pneumonia type: due to unspecified organism Lung location: unspecified part of lung Qualified Code(s): J18.9 - Pneumonia, unspecified organism Is this a current diagnosis for this admission?: Yes Plan: - as seen on chest XR - currently on Ceftiraxone and azithro D3 - no fever, WBC normal - blood culture prelim no growth -Switch to oral antibiotics to complete 7 days of treatment (2) Hypergammaglobulinemia, unspecified Is this a current diagnosis for this admission?: Yes Plan: - according to the patient her IgE level is elevated. Primary care working on insurance for her to get Zolair - she has a history of recurrent pneumonia - monitor for now (3) Sepsis Qualifiers: Sepsis type: sepsis due to unspecified organism Sepsis acute organ dysfunction status: with acute organ dysfunction Severe sepsis acute organ dysfunction type: acute respiratory failure Acute respiratory failure type: with hypoxia Severe sepsis shock status: without septic shock Qualified Code(s): A41.9 - Sepsis, unspecified organism; R65.20 - Severe sepsis without septic shock; J96.01 - Acute respiratory failure with hypoxia Is this a current diagnosis for this admission?: Yes Plan: - secondary to bilateral pneumonia - RESOLVING - WBX 8.8, afberile, VS stable - blood culture no growth x 1 -Switched to oral antibiotics to complete 7-day treatment (4) Suspected COVID-19 virus infection Is this a current diagnosis for this admission?: Yes Plan: - patient came in with bilateral pneumonia inthe setting of hyper IgE. No known exposure. COVID test sent - NEGATIVE (5) Morbid obesity Is this a current diagnosis for this admission?: Yes Plan: - Patient is super morbid obese. - advised calorie control, lifestyle modification and exercise - Plan Summary Summary: Ashish Perez is a 54-year-old female past medical history of recurrent pneumonia, hypergammaglobulinemia IgE, morbid obesity who was admitted with a chief complaint of difficulty breathing bilateral upper shoulder pain and shortness of breath. She was diagnosed with pneumonia 5 days prior to admission and was started on doxycycline however her symptoms were not improving that is why she presented to [facility] ED. s and subsequently improved the following days he was tested for COVID-19 and all result was negative. She was also started on ceftriaxone and azithromycin inpatient. Culture negative. She was eventually sent home on day 4 of admission on amoxicillin and azithromycin to complete 7 days of treatment - Time Time Spent with patient: 15-24 minutes Medications reviewed and adjusted accordingly: Yes Anticipated Discharge Disposition: Home, Self Care Anticipated Discharge Timeframe: within 24 hours
== END 2019-10-02 18:00 | disposition home or self-care (01) | DRG 871 ==
LOC: ER 12:15 → EH 18:30 → 3N 22:39 → 4W 10-02 14:20
PROVIDERS: ADMIT Internal Medicine; ATTEND Internal Medicine
DX: A41.9 Sepsis, unspecified organism (principal); J18.9 Pneumonia, unspecified organism; E66.01 Morbid (severe) obesity due to excess calories; D89.2 Hypergammaglobulinemia, unspecified; K21.9 Gastro-esophageal reflux disease without esophagitis; R65.20 Severe sepsis without septic shock; D64.9 Anemia, unspecified; Z11.59 Encounter for screening for other viral diseases; Z79.899 Other long term (current) drug therapy; Z88.6 Allergy status to analgesic agent; Z91.013 Allergy to seafood; Z82.49 Family history of ischemic heart disease and other diseases of the circulatory system; Z83.3 Family history of diabetes mellitus
CPT/HCPCS: 36415; 71045; 71250; 80048; 80053; 82803; 82962; 83605; 84484; 85025; 87040; 87635; 93005; 93010; 96374; 96375; 99285; C9803; J0456; J0696; J1650; J1956; J2270; J2405; J3490; J7060; J7120

== ENCOUNTER → 2019-10-12 | Outpatient (CLI) | payer OTHER | LOC: OD 15:22 | PROVIDERS: ATTEND Internal Medicine Pulmonary Disease | DX: J45.40 Moderate persistent asthma, uncomplicated (principal) | CPT/HCPCS: 36415; 82785; 86003 ==

== ENCOUNTER → 2019-11-20 | Outpatient (CLI) | payer OTHER ==
--- NOTE | 2019-11-20 16:06 | RADIOLOGY REPORT (SQ) ---
EXAM DESCRIPTION: VENOUS UNILATERAL LOWER IMAGES COMPLETED DATE/TIME: 11/20/2019 3:55 pm REASON FOR STUDY: LLE SWELLING M79.609 PAIN IN UNSPECIFIED LIMB COMPARISON: None. TECHNIQUE: Dynamic and static duncan scale and color images acquired of the left leg venous system. Se lected spectral images acquired with additional compression and augmentation maneuvers. The contralat eral common femoral vein and saphenofemoral junction were also imaged. Images stored on PACS. LIMITATIONS: Habitus. FINDINGS: COMMON FEMORAL: Normal phasicity, compression and augmentation. No visualized echogenic ma terial on duncan scale. No defects on color images. FEMORAL: Portions in the distal fine not well seen. As assessed, no clot. POPLITEAL: Normal compression, augmentation. No visualized echogenic material on duncan scale. No defec ts on color images. CALF VESSELS: Posterior tibial veins are free of clot. Peroneal veins are not seen. GSV and SSV: Normal compression, augmentation. No visualized echogenic material on duncan scale. No def ects on color images. ANY DEEP VENOUS INSUFFICIENCY: Not evaluated. ANY EVIDENCE OF POPLITEAL CYST: No. OTHER: No other significant finding. CONTRALATERAL COMMON FEMORAL VEIN AND SAPHENOFEMORAL JUNCTION: Normal phasicity, compression and augmentation. No visualized echogenic material on duncan scale. No de fects on color images. IMPRESSION: 1. Mildly limited but otherwise negative left lower extremity venous Doppler study. No DVT appreciat ed. TECHNICAL DOCUMENTATION: JOB ID: [id number] 2010 [employer]- All Rights Reserved Reading location - IP/workstation name: [email or web address]
== END ==
LOC: SP 15:20
PROVIDERS: ATTEND Internal Medicine Hematology & Oncology
DX: M79.662 Pain in left lower leg (principal); M79.89 Other specified soft tissue disorders
CPT/HCPCS: 93971

== ENCOUNTER → 2020-01-19 | Outpatient (CLI) | payer OTHER ==
--- NOTE | 2020-01-19 16:26 | RADIOLOGY REPORT (SQ) ---
EXAM DESCRIPTION: CHEST 2 VIEWS IMAGES COMPLETED DATE/TIME: 01/19/2020 4:15 pm REASON FOR STUDY: (J45.41)MODERATE PERSISTENT ASTHMA WITH (ACUTE) EXACERBATION COMPARISON: 09/30/2019. EXAM PARAMETERS: NUMBER OF VIEWS: two views TECHNIQUE: Digital Frontal and Lateral radiographic views of the chest acquired. RADIATION DOSE: NA LIMITATIONS: none FINDINGS: LUNGS AND PLEURA: No opacities, masses or pneumothorax. No pleural effusion. MEDIASTINUM AND HILAR STRUCTURES: No masses or contour abnormalities. HEART AND VASCULAR STRUCTURES: Heart normal size. No evidence for failure. BONES: No acute findings. HARDWARE: None in the chest. OTHER: No other significant finding. IMPRESSION: NO ACUTE RADIOGRAPHIC FINDING IN THE CHEST. TECHNICAL DOCUMENTATION: JOB ID: [id number] 2010 [employer]- All Rights Reserved Reading location - IP/workstation name: [email or web address]
== END ==
LOC: RAD 16:01
PROVIDERS: ATTEND Internal Medicine Pulmonary Disease
DX: J45.41 Moderate persistent asthma with (acute) exacerbation (principal)
CPT/HCPCS: 71046

== ENCOUNTER 2020-02-18 09:06 | Emergency (ER) | payer OTHER ==
[2020-02-18] MEDS ORDERED: ACETAMINOPHEN 325 MG TABLET PO ONE (10:23)
--- NOTE | 2020-02-18 11:08 | ER Document Report ---
ED Respiratory Problem - General Chief Complaint: Shortness Of Breath Stated Complaint: BREATHING PROBLEM Time Seen by Provider: 02/18/20 10:29 Primary Care Provider: KANDY GOODWIN NP [Primary Care Provider] - Follow up as needed Notes: CHIEF COMPLAINT: Shortness of breath and fever today HPI: 44-year-old morbidly obese female presenting for shortness of breath and fever today. States she was clearing her throat last night. 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 States she has a history of allergic asthma has been followed by pulmonology. Is on multiple inhalers. States she still feels short of breath. States that she has had this type of episode "10 or 20 times" and it always turns into pneumonia. ROS: See HPI - all other systems were reviewed and are otherwise negative Constitutional: + fever Eyes: no drainage, no blurred vision ENT: no runny nose, no sore throat Cardiovascular: no chest pain Resp: + SOB, + cough GI: no vomiting, no diarrhea, no abdominal pain : no dysuria Integumentary: no rash Allergy: no hives Musculoskeletal: no extremity pain or swelling Neurological: no numbness/tingling, no weakness MEDICATIONS: I agree with the patient medications as charted by the RN. ALLERGIES: I agree with the allergies as charted by the RN. PAST MEDICAL HISTORY/PAST SURGICAL HISTORY: Reviewed and agree as charted by RN. SOCIAL HISTORY: Reviewed and agree as charted by RN. FAMILY HISTORY: No significant familial comorbid conditions directly related to patient complaint EXAM: Reviewed vital signs as charted by RN. CONSTITUTIONAL: Alert and oriented and responds appropriately to questions. Well-appearing; well-nourished HEAD: Normocephalic; atraumatic EYES: PERRL; Conjunctivae clear, sclerae non-icteric ENT: normal nose; no rhinorrhea; moist mucous membranes; pharynx without lesions noted, no uvula edema or deviation, no tonsillar hypertrophy, phonation normal NECK: Supple without meningismus; non-tender; no cervical lymphadenopathy, no masses CARD: RRR; no murmurs, no clicks, no rubs, no gallops; symmetric distal pulses RESP: Normal chest excursion without splinting. Mild tachypnea; breath sounds clear and equal bilaterally; no wheezes, no rhonchi, no rales, pulse oximetry 94% on room air not hypoxic ABD/GI: Morbidly obese, normal bowel sounds; non-distended; soft, non-tender, no rebound, no guarding; no palpable organomegaly or masses. BACK: The back appears normal and is non-tender to palpation, there is no CVA tenderness EXT: Normal ROM in all joints; no cyanosis, no effusions, no edema SKIN: Normal color for age and race; warm; dry; good turgor; no acute lesions noted NEURO: Moves all extremities equally; Motor and sensory function intact PSYCH: The patient's mood and manner are appropriate. Grooming and personal hygiene are appropriate. MDM: 44-year-old female asthma history shortness of breath fever for 1 day. She is febrile here. Have given antipyretics which she did not take at home. On my review of her chest x-ray she does appear to have a right lower lobe right middle lobe infiltrate relative to her last chest x-ray. Will obtain Covid t esting and flu testing as well. The patient was evaluated during the global COVID-19 pandemic and that diagnosis was suspected/considered upon their initial presentation. Their evaluation, treatment and testing was consistent with current guidelines for patients who present with complaints or symptoms that may be related to COVID-19 TRAVEL OUTSIDE OF THE [place] IN LAST 30 DAYS: No - Related Data Allergies/Adverse Reactions: aspirin Allergy (Verified 02/18/20 10:44) Hives shellfish derived Allergy (Verified 02/18/20 10:44) Home Medications: spriva/advair/duo neb/albuterol inhaler Past Medical History - Social History Smoking Status: Never Smoker Frequency of alcohol use: None Drug Abuse: None Family History: CAD, DM, Hypertension Patient has homicidal ideation: No Pulmonary Medical History: Reports: Hx Asthma, Hx Bronchitis, Hx Pneumonia Renal/ Medical History: Denies: Hx Peritoneal Dialysis GI Medical History: Reports: Hx Gastroesophageal Reflux Disease Musculoskeletal Medical History: Reports Hx Arthritis Psychiatric Medical History: Denies: Hx Depression Past Surgical History: Reports: Hx Appendectomy, Hx Bowel Surgery - gastirc bypass 2008, Hx Cholecystectomy, Hx Orthopedic Surgery, Hx Tonsillectomy - Immunizations Hx Diphtheria, Pertussis, Tetanus Vaccination: Yes Hx Pneumococcal Vaccination: 02/12/08 Physical Exam - Vital signs Vitals: Temp Pulse Resp BP Pulse Ox 101.4 F H 118 H 24 H 146/69 H 94 02/18/20 09:12 02/18/20 09:12 02/18/20 09:12 02/18/20 09:12 02/18/20 09:12 Course - Re-evaluation Re-evalutation: 02/18/20 13:26 Covid test is negative chest x-ray positive for pneumonia. Have given Rocephin and Zithromax in the ER will keep patient on Zithromax, Decadron, she has inhalers at home. She states she feels no better, will have nursing recheck vital signs, did offer further treatment including breathing treatments and patient declined stating she can do these at home she is already called her exploration manager for follow-up 02/18/20 13:28 We will have nursing recheck vital signs and notify me of any abnormalities - Vital Signs Vital signs: Temp Pulse Resp BP Pulse Ox 101.4 F H 118 H 24 H 146/69 H 94 02/18/20 09:12 02/18/20 09:12 02/18/20 09:12 02/18/20 09:12 02/18/20 09:12 - Laboratory Results Critical Laboratory Results Reviewed: No Critical Results - Radiology Results Critical Radiology Results Reviewed: No Critical Results Discharge - Discharge Clinical Impression: Fever in adult Pneumonia Qualifiers: Pneumonia type: due to unspecified organism Laterality: right Lung location: lower lobe of lung Qualified Code(s): J18.9 - Pneumonia, unspecified organism Condition: Stable Disposition: HOME, SELF-CARE Additional Instructions: Your chest x-ray today was positive for pneumonia. Take the antibiotics and steroids as prescribed to help with your breathing. Continue breathing treatments at home 2 puffs every 4 hours as needed. Continue to medicate for fever with Motrin and Tylenol consistently. Hydrate well at home. Follow-up with your exploration manager for further evaluation and treatment call for appointment. Return for worsening symptoms Prescriptions: Dexamethasone [Decadron 4 Mg Tablet] 4 mg PO DAILY #7 tablet Azithromycin [Zithromax 250 mg Tablet] 250 mg PO ASDIR PRN #6 tablet PRN Reason: Referrals: KANDY GOODWIN NP [Primary Care Provider] - Follow up as needed
[2020-02-18] MEDS ORDERED: IPRATROPIUM/ALBUTEROL 0.5-2.5 MG/3 ML AMPUL NEB ONE (11:09)
--- NOTE | 2020-02-18 11:16 | RADIOLOGY REPORT (SQ) ---
EXAM DESCRIPTION: CHEST SINGLE VIEW IMAGES COMPLETED DATE/TIME: 02/18/2020 10:00 am REASON FOR STUDY: shortness of breath COMPARISON: 01/19/2020 EXAM PARAMETERS: NUMBER OF VIEWS: One view. TECHNIQUE: Single frontal radiographic view of the chest acquired. RADIATION DOSE: NA LIMITATIONS: None. FINDINGS: LUNGS AND PLEURA: Lungs are hyperinflated. New patchy opacity at the right lung base. No pleural effusion or pneumothorax. MEDIASTINUM AND HILAR STRUCTURES: No masses. Contour normal. HEART AND VASCULAR STRUCTURES: Heart normal in size. Normal vasculature. BONES: No acute findings. HARDWARE: None in the chest. OTHER: No other significant finding. IMPRESSION: New patchy consolidation right lung base suggestive of pneumonia. TECHNICAL DOCUMENTATION: JOB ID: [id number] 2010 [employer]- All Rights Reserved Reading location - IP/workstation name: [email or web address]
[2020-02-18] MEDS ORDERED: CEFTRIAXONE INJ 1000 MG VIAL IM ONE (11:18)
[2020-02-18] MEDS ORDERED: LIDOCAINE 1% INJ (10 MG/ML) 10 ML MDV INJ ONE (11:18)
[2020-02-18] MEDS ORDERED: AZITHROMYCIN 250 MG TABLET PO ONE (11:18)
[2020-02-18 14:43] VITALS: BP 112/62
== END 2020-02-18 14:40 | disposition home or self-care (01) ==
LOC: ER 09:06
DX: J18.9 Pneumonia, unspecified organism (principal); R50.9 Fever, unspecified; R06.02 Shortness of breath; Z20.822 Contact with and (suspected) exposure to COVID-19
CPT/HCPCS: 94640; 99284; 96372; 0202U ×23; 71045; J0696

== ENCOUNTER 2020-03-07 16:28 | Emergency (ER) | payer OTHER ==
--- NOTE | 2020-03-07 17:08 | ER Document Report ---
ED Medical Screen (RME) - General Chief Complaint: Leg Pain Stated Complaint: LEG SWELLING Time Seen by Provider: 03/07/20 17:03 Primary Care Provider: KANDY GOODWIN NP [Primary Care Provider] - Follow up as needed Mode of Arrival: Wheelchair Information source: Patient Notes: HPI;-44 year-old female presents to the emergency room complaining of right leg pain and swelling for the past 3 days. Patient states she was sent in by her primary care physician for rule out DVT. She does have a history of previous right leg thrombosis several years ago. She denies any recent travel. Not currently on control. Take anything for the pain PE: Alert and oriented x3. Lungs: Clear to auscultation without rales, rhonchi, wheezes. Heart: Regular rate rhythm without murmurs, rubs, gallops. Positive right pedal pulse. Unable to do full assessment I have greeted and performed a rapid initial assessment of this patient. A comprehensive ED assessment and evaluation of the patient, analysis of test results and completion of the medical decision making process will be conducted by additional ED providers. I have specifically instructed the patient or fa stefani members with the patient to immediately return to any nursing staff should anything change in the patient's condition or with their chief complaint. TRAVEL OUTSIDE OF THE [place] IN LAST 30 DAYS: No - Related Data Allergies/Adverse Reactions: aspirin Allergy (Verified 03/07/20 16:50) Hives shellfish derived Allergy (Verified 03/07/20 16:50) Past Medical History Pulmonary Medical History: Reports: Hx Asthma, Hx Bronchitis, Hx Pneumonia Renal/ Medical History: Denies: Hx Peritoneal Dialysis GI Medical History: Reports: Hx Gastroesophageal Reflux Disease Musculoskeltal Medical History: Reports Hx Arthritis Psychiatric Medical History: Denies: Hx Depression Past Surgical History: Reports: Hx Appendectomy, Hx Bowel Surgery - gastirc bypass 2008, Hx Cholecystectomy, Hx Orthopedic Surgery, Hx Tonsillectomy - Immunizations Hx Diphtheria, Pertussis, Tetanus Vaccination: Yes Physical Exam - Vital signs Vitals: Temp Pulse Resp BP Pulse Ox 98.2 F 94 20 137/74 H 97 03/07/20 16:32 03/07/20 16:32 03/07/20 16:32 03/07/20 16:32 03/07/20 16:32 Course - Vital Signs Vital signs: Temp Pulse Resp BP Pulse Ox 98.2 F 94 20 137/74 H 97 03/07/20 16:32 03/07/20 16:32 03/07/20 16:32 03/07/20 16:32 03/07/20 16:32 Doctor's Discharge - Discharge Referrals: KANDY GOODWIN NP [Primary Care Provider] - Follow up as needed
[2020-03-07 18:39] LABS: ABSOLUTE BASOPHILS # (AUTO) 0.1 10^3/uL (0.0-0.2); ABSOLUTE EOSINOPHILS # (AUTO) 0.2 10^3/uL (0.0-0.6); ABSOLUTE LYMPHOCYTES (AUTO) 1.7 10^3/uL (0.5-4.7); ABSOLUTE NEUT (AUTO) 9.8 10^3/uL (1.7-8.2); BASOPHILS % (AUTO) 0.4 % (0-2); EOSINOPHILS % (AUTO) 1.9 % (0-6); HEMATOCRIT 38.6 % (36.0-47.0); HEMOGLOBIN 12.3 g/dL (12.0-15.5); LYMPHOCYTES % (AUTO) 13.3 % (13-45); MEAN CORPUSCULAR HEMOGLOBIN 26.9 pg (27.0-33.4); MEAN CORPUSCULAR HGB CONC 31.9 g/dL (32.0-36.0); MEAN CORPUSCULAR VOLUME 85 fl (80-97); MONOCYTES % (AUTO) 7.5 % (3-13); PLATELET COUNT 437 10^3/uL (150-450); RED BLOOD COUNT 4.57 10^6/uL (3.72-5.28); RED CELL DISTRIBUTION WIDTH 15.4 % (11.5-14.0); SEGMENTED NEUTROPHILS % (AUTO) 76.9 % (42-78); TOTAL CELLS COUNTED % (AUTO) 100 %; WHITE BLOOD COUNT 12.7 10^3/uL (4.0-10.5)
[2020-03-07 18:42] LABS: INTERNATIONAL RATION (INR) 1.01; PROTHROMBIN TIME 13.5 SEC (11.4-15.4)
[2020-03-07 18:54] LABS: ALBUMIN 3.3 g/dL (3.5-5.0); ALKALINE PHOSPHATASE 115 U/L (38-126); ANION GAP 6 (5-19); ASPARTATE AMINO TRANSFERASE 20 U/L (14-36); BILIRUBIN,DIRECT 0.3 mg/dL (0.0-0.4); BILIRUBIN,TOTAL 0.3 mg/dL (0.2-1.3); BLOOD UREA NITROGEN 14 mg/dL (7-20); CALCIUM 8.7 mg/dL (8.4-10.2); CARBON DIOXIDE 26 mmol/L (22-30); CHLORIDE 108 mmol/L (98-107); GLUCOSE 117 mg/dL (75-110); POTASSIUM 4.6 mmol/L (3.6-5.0); TOTAL PROTEIN 6.3 g/dL (6.3-8.2)
--- NOTE | 2020-03-07 19:57 | RADIOLOGY REPORT (SQ) ---
EXAM DESCRIPTION: VENOUS UNILATERAL LOWER IMAGES COMPLETED DATE/TIME: 03/07/2020 7:43 pm REASON FOR STUDY: right leg pain swelling COMPARISON: None. TECHNIQUE: Dynamic and static duncan scale and color images acquired of the right leg venous system. S elected spectral images acquired with additional compression and augmentation maneuvers. The contrala teral common femoral vein and saphenofemoral junction were also imaged. Images stored on PACS. LIMITATIONS: None. FINDINGS: COMMON FEMORAL: Normal phasicity, compression and augmentation. No visualized echogenic ma terial on duncan scale. No defects on color images. FEMORAL: Normal compression and augmentation. No visualized echogenic material on duncan scale. No defe cts on color images. POPLITEAL: Normal compression, augmentation. No visualized echogenic material on duncan scale. No defec ts on color images. CALF VESSELS: Normal compression, augmentation. No visualized echogenic material on duncan scale. No de fects on color images. GSV and SSV: Greater saphenous vein is occluded from a point 1.3 cm from the saphenous femoral juncti on. ANY DEEP VENOUS INSUFFICIENCY: Not evaluated. ANY EVIDENCE OF POPLITEAL CYST: No. OTHER: No other significant finding. CONTRALATERAL COMMON FEMORAL VEIN AND SAPHENOFEMORAL JUNCTION: Normal phasicity, compression and augmentation. No visualized echogenic material on duncan scale. No de fects on color images. IMPRESSION: Acute SVT involving the greater saphenous vein as described. TECHNICAL DOCUMENTATION: JOB ID: [id number] 2010 [employer]- All Rights Reserved Reading location - IP/workstation name: [email or web address]
--- NOTE | 2020-03-07 20:17 | ER Document Report ---
Entered by ANA LÓPEZ SCRIBE 03/07/20 1938 Acting as scribe for:MARCIANO MADRID DO ED General - General Chief Complaint: Leg Pain Stated Complaint: LEG SWELLING Time Seen by Provider: 03/07/20 17:03 Primary Care Provider: KANDY GOODWIN NP [Primary Care Provider] - 03/08/20 Mode of Arrival: Wheelchair Information source: Patient Notes: This 44-year-old female patient presents to the emergency department today with complaints of right leg pain for the last x4 days. Patient has a history of DVT and she is worried that she might have another one. She mentions some pain to her right inner thigh with redness and swelling to the right ankle. Her PCP sent her here for evaluation. TRAVEL OUTSIDE OF THE [place] IN LAST 30 DAYS: No - Related Data Allergies/Adverse Reactions: aspirin Allergy (Verified 03/07/20 16:50) Hives shellfish derived Allergy (Verified 03/07/20 16:50) Past Medical History - General Information source: Patient - Social History Smoking Status: Never Smoker Cigarette use (# per day): No Frequency of alcohol use: None Drug Abuse: None Lives with: Family Family History: CAD, DM, Hypertension Pulmonary Medical History: Reports: Hx Asthma, Hx Bronchitis, Hx Pneumonia GI Medical History: Reports: Hx Gastroesophageal Reflux Disease Musculoskeletal Medical History: Reports Hx Arthritis Past Surgical History: Reports: Hx Appendectomy, Hx Bowel Surgery - gastirc bypass 2008, Hx Cholecystectomy, Hx Orthopedic Surgery, Hx Tonsillectomy - Immunizations Hx Diphtheria, Pertussis, Tetanus Vaccination: Yes Hx Pneumococcal Vaccination: 02/12/08 Review of Systems - Review of Systems Constitutional: No symptoms reported EENT: No symptoms reported Cardiovascular: No symptoms reported Respiratory: No symptoms reported Gastrointestinal: No symptoms reported Genitourinary: No symptoms reported Female Genitourinary: No symptoms reported Musculoskeletal: See HPI, Leg swelling Skin: See HPI, Change in color Hematologic/Lymphatic: No symptoms reported Neurological/Psychological: No symptoms reported -: Yes All other systems reviewed and negative Physical Exam - Vital signs Vitals: Temp Pulse Resp BP Pulse Ox 98.2 F 94 20 137/74 H 97 03/07/20 16:32 03/07/20 16:32 03/07/20 16:32 03/07/20 16:32 03/07/20 16:32 - Notes Notes: Physical Exam: General: Alert, appears well. HEENT: Normocephalic. Atraumatic. PERRL. Extraocular movements intact. Oropharynx clear. Neck: Supple. Non-tender. Respiratory: No respiratory distress. Clear and equal breath sounds bilaterally. Cardiovascular: Regular rate and rhythm. Abdominal: Obese. Non-tender. No distension. Normal Bowel Sounds. Back: No gross abnormalities. Extremities: Moves all four extremities. Upper extremities: Normal inspection. Normal ROM. Lower extremities: Erythema bilaterally does not extend above the knee, tenderness with palpation of the RLE. Neurological: Normal cognition. AAOx4. Normal speech. Psychological: Normal affect. Normal Mood. Skin: Warm. Dry. Normal color. Course - Re-evaluation Re-evalutation: 03/07/20 20:42 MDM 44 year old female with right leg pain for 3 days and doppler that is + for le clot. Will initiate xarelto. No chest pain or sob. No fever. She is on pain management already, receiving dilaudid at home. I explained to her we will not add to that. Discussed return precautions and she expressed understanding. - Vital Signs Vital signs: Temp Pulse Resp BP Pulse Ox 98.8 F 77 20 130/79 H 100 03/07/20 20:55 03/07/20 20:55 03/07/20 20:55 03/07/20 20:55 03/07/20 20:55 - Laboratory Results Result Diagrams: 03/07/20 18:10 03/07/20 18:10 Laboratory Results Interpreted: 03/07/20 03/07/20 18:10 18:10 WBC 12.7 H MCH 26.9 L MCHC 31.9 L RDW 15.4 H Absolute Neuts (auto) 9.8 H Chloride 108 H Glucose 117 H Albumin 3.3 L Critical Laboratory Results Reviewed: No Critical Results - Radiology Results Critical Radiology Results Reviewed: No Critical Results Discharge - Discharge Clinical Impression: DVT (deep venous thrombosis) Qualifiers: DVT location: lower extremity Affected thrombotic vein of extremity: unspecified lower extremity distal vein Chronicity: acute Laterality: right Qualified Code(s): I82.4Z1 - Acute embolism and thrombosis of unspecified deep veins of right distal lower extremity Condition: Stable Disposition: HOME, SELF-CARE Instructions: DVT Outpatient Treatment ([facility]) Additional Instructions: See your doctor in follow up. Call them tomorrow. Return here for chest pain, shortness of breath, other problems or concerns. Take your medicine as directed. Prescriptions: Fluconazole [Diflucan] 150 mg PO DAILY #3 tablet Rivaroxaban [Xarelto 15 mg Tablet] 15 mg PO BID #42 tablet Referrals: KANDY GOODWIN NP [Primary Care Provider] - 03/08/20 I personally performed the services described in the documentation, reviewed and edited the documentation which was dictated to the scribe in my presence, and it accurately records my words and actions.
[2020-03-07] MEDS ORDERED: RIVAROXABAN 15 MG TABLET PO ONE (20:38)
[2020-03-07 20:58] VITALS: BP 130/79
== END 2020-03-07 21:27 | disposition home or self-care (01) ==
LOC: ER 16:28
DX: I82.4Z1 Acute embolism and thrombosis of unspecified deep veins of right distal lower extremity (principal); M79.604 Pain in right leg; R22.41 Localized swelling, mass and lump, right lower limb; Z98.84 Bariatric surgery status; Z86.718 Personal history of other venous thrombosis and embolism
CPT/HCPCS: 36415; 80053; 85025; 85610; 93971; 99284